=== PATIENT | female | born 1970 | race Caucasian/White ===

== ENCOUNTER → 2017-10-08 08:14 | Outpatient (CLI) | payer OTHER, SELFPAY ==
--- NOTE | 2017-10-08 08:16 | HPBI_ITS ---
MAMMOGRAPHY - BILATERAL SCREENING REASON FOR EXAM: Female, 47 years old. Routine annual screening examination. PERTINENT HISTORY: Non-contributory. TECHNIQUE: Digital bilateral breast nataly (3D mammographic acquisition) in the CC and MLO projections. 2-D mediolateral oblique (MLO) and craniocaudad (CC) views of both breasts were obtained. CAD: Full Field Digital Mammography with Computer Added Detection was performed. COMPARISON: Comparison is made with prior study dated October 07, 2016 and October 04, 2015. FINDINGS: Breast Composition: The breasts are heterogeneously dense, which may obscure small masses. There now is evidence of a 1 cm x 1 cm well-defined nodule in the medial retroareolar region of the right breast. Correlation with ultrasound is recommended. No other significant abnormalities are identified. There has been no significant change since the prior study. HPBI/SCREENING MAMM (CAD), BILAT IMPRESSION: 1 cm x 1 cm well-defined nodule in the medial retroareolar region of the right breast as described. Correlation with ultrasound is recommended. ASSESSMENT CATEGORY: BIRADS Category 0: Incomplete. Need additional imaging evaluation. A letter regarding these results will be sent to the patient by the facility within 30 days. Approximately 10% of breast cancers are not detected by mammography. A normal mammogram should not delay biopsy of a clinically suspicious abnormality. [id number] Electronically Signed: Alexander iLnd MD at 10:09 EST Tel [phone], Service support ,
== END ==
PROVIDERS: Family Provider Internal Medicine; PCP Internal Medicine; Visit Provider Internal Medicine
DX: Z12.31 Encounter for screening mammogram for malignant neoplasm of breast (principal)
CPT/HCPCS: 77063; 77067

== ENCOUNTER → 2017-10-13 12:08 | Outpatient (CLI) | payer OTHER, SELFPAY ==
--- NOTE | 2017-10-13 12:10 | US_ITS ---
STUDY: ULTRASOUND BREAST - RIGHT REASON FOR EXAM: Female, 47 years old. Abnormal screening mammogram. TECHNIQUE: Axial and longitudinal images of the RIGHT breast were performed with a high resolution ultrasound transducer. COMPARISON: Comparison is made with prior mammogram dated October 08, 2017. FINDINGS: RIGHT Breast: 2 small cysts are seen in the retroareolar region of the breast. The larger measures 1.2 cm x 0.9 cm x 0.5 cm. This corresponds to the mammographic findings. Incidental note is made of mildly dilated retroareolar ducts. US/Breast Limited Unilateral IMPRESSION: The mammographic abnormality corresponds to a 2 small retroareolar cysts. Routine mammographic follow-up is recommended. ASSESSMENT CATEGORY: BIRADS Category 2: Benign. A letter regarding these results will be sent to the patient by the facility within 30 days. Electronically Signed: Alexander Lind MD at 13:12 EST Tel [phone], Service support ,
== END ==
PROVIDERS: Family Provider Internal Medicine; PCP Internal Medicine; Visit Provider Internal Medicine
DX: N63.0 Unspecified lump in unspecified breast (principal)
CPT/HCPCS: 76642

== ENCOUNTER → 2018-11-05 07:27 | Outpatient (CLI) | payer OTHER, SELFPAY ==
--- NOTE | 2018-11-05 07:36 | BI_ITS ---
MAMMOGRAPHY - BILATERAL SCREENING 3-D NERY SYNTHESIS REASON FOR EXAM: Female, 48 years old. Bilateral Screening 3-D tomosynthesis PERTINENT HISTORY: control pill use for 30 years. History of right cyst. History of right ducts removed in the [id number] time period. TECHNIQUE: 2-D mammograms and 3-D Nery synthesis of the breast (s) were performed. CAD was performed. COMPARISON: October 08, 2017, October 07, 2016 FINDINGS: The breast composition is heterogeneously dense that can obscure small breast masses. Scattered benign calcifications are seen. No dense spiculated masses or suspicious microcalcifications are identified. No architectural distortion is identified. There is no skin thickening or retraction. There has been no significant change since the prior study. BI/SCREENING MAMM (CAD), BILAT IMPRESSION: No mammographic signs of malignancy. Routine yearly mammograms recommended. ASSESSMENT CATEGORY: BIRADS Category 2: Benign. A letter regarding these results will be sent to the patient by the facility within 30 days. FOLLOW UP RECOMMENDATION: Yearly follow up mammogram recommended. (A) Approximately 10% of breast cancers are not detected by mammography. A normal mammogram should not delay biopsy of a clinically suspicious abnormality. Electronically Signed: Talib Willett MD at 17:45 EDT , Service support ,
== END ==
PROVIDERS: Family Provider Internal Medicine; PCP Internal Medicine; Referring Provider Internal Medicine; Visit Provider Internal Medicine
DX: Z12.31 Encounter for screening mammogram for malignant neoplasm of breast (principal)
CPT/HCPCS: 77063; 77067

== ENCOUNTER → 2020-02-02 07:43 | Outpatient (CLI) | payer OTHER, SELFPAY ==
--- NOTE | 2020-02-02 07:53 | BI_ITS ---
MAMMOGRAPHY - BILATERAL SCREENING REASON FOR EXAM: Female, 49 years old. Routine annual screening examination. PERTINENT HISTORY: Non-contributory. TECHNIQUE: Digital bilateral breast nery (3D mammographic acquisition) in the CC and MLO projections. 2-D mediolateral oblique (MLO) and craniocaudad (CC) views of both breasts were obtained. CAD: Full Field Digital Mammography with Computer Added Detection was performed. COMPARISON: Comparison is made with prior examination dated November 05, 2018 and October 08, 2017. FINDINGS: Breast Composition: The breasts are heterogeneously dense, which may obscure small masses. There are no dominant masses or suspicious calcifications. No other significant abnormalities are identified. There has been no significant change since the prior study. BI/SCREEN MAMM (CAD) W/NERY BILAT IMPRESSION: Stable bilateral screening mammogram. Yearly follow-up mammogram recommended. (A) ASSESSMENT CATEGORY: BIRADS Category 1: Negative. A letter regarding these results will be sent to the patient by the facility within 30 days. Approximately 10% of breast cancers are not detected by mammography. A normal mammogram should not delay biopsy of a clinically suspicious abnormality. [id number] Electronically Signed: Alexander Lind, at 8:58 EDT , Service support ,
== END ==
PROVIDERS: PCP Internal Medicine; Referring Provider Internal Medicine; Visit Provider Internal Medicine
DX: Z12.31 Encounter for screening mammogram for malignant neoplasm of breast (principal)
CPT/HCPCS: 77063; 77067

== ENCOUNTER → 2021-02-26 07:13 | Outpatient (CLI) | payer OTHER, SELFPAY ==
--- NOTE | 2021-02-26 07:15 | BI_ITS ---
MAMMOGRAPHY - BILATERAL SCREENING REASON FOR EXAM: Female, 51 years old. Routine annual screening examination. PERTINENT HISTORY: Non-contributory. TECHNIQUE: Digital bilateral breast nery (3D mammographic acquisition) in the CC and MLO projections. 2-D mediolateral oblique (MLO) and craniocaudad (CC) views of both breasts were obtained. CAD: Full Field Digital Mammography with Computer Added Detection was performed. COMPARISON: Comparison is made with prior study dated 02/02/2020 and 11/05/2018. FINDINGS: Breast Composition: The breasts are heterogeneously dense, which may obscure small masses. There are no dominant masses or suspicious calcifications. Stable benign-appearing bilateral axillary lymph nodes. No other significant abnormalities are identified. There has been no significant change since the prior study. BI/SCRN MAMM (CAD)W/NERY BILAT IMPRESSION: Stable bilateral screening mammogram. Yearly follow-up mammogram recommended. (A) ASSESSMENT CATEGORY: BIRADS Category 2: Benign. A letter regarding these results will be sent to the patient by the facility within 30 days. Approximately 10% of breast cancers are not detected by mammography. A normal mammogram should not delay biopsy of a clinically suspicious abnormality. [id number] Electronically Signed: Alexander Lind MD at 8:41 EDT , Service support ,
== END ==
PROVIDERS: PCP Internal Medicine; Referring Provider Internal Medicine; Visit Provider Internal Medicine
DX: Z12.31 Encounter for screening mammogram for malignant neoplasm of breast (principal)
CPT/HCPCS: 77063; 77067

== ENCOUNTER 2021-06-13 08:00 | Outpatient (RCR) | payer OTHER, SELFPAY ==
--- NOTE | 2021-05-30 08:45 | HP.PTEVAL_ITS ---
Patient's Visit Information SHAYY JACKMAN is a 51 year old F referred to Physical Therapy by Dr. Bianca Licea MD with a diagnosis of B knee pain. Date of Evaluation: 05/30/21 Physical Therapist: Rahat Menendez PT, ATC - Visit Plan Frequency: 2-3x /Week Duration: 4-6 Weeks Plan: B LE stretching and strengthening, core stab, balance and proprio, bike, and HEP - Subjective Pt reports she has had B knee pain for several months. Pt notes she first started working out when she began to experience L knee pain. Pt notes a couple of months later her R knee began to hurt. Pt reports she has had 2 x-rays, which revealed a little bit of OA, but nothing significant. Pt reports no significant injury or trauma to her knees. Pt reports sleep difficulty secondary to B knee pain. Pt denies tingling or numbness in her knees. pt reports she is very active as she has a arreola house and enjoys yard work, and is limited at times secondary to pain. Pt notes her knees don't lock up or give out, but she notes they do pop and crack at times. Pt reports if she rests for a long period of time, she has no pain. But the moment she walks for a while, such as going to the grocery store, she begins to experience pain. pt notes when she kneels, she feels like she is kneeling on a balloon. Pt reports all of her pain is located ont he medial and peripatellar regions of B knees. 0/10 pain at rest, 6/10 pain at worst. - Pain B knee pain Pain Intensity (Out of 10): 0 Pain Intensity Range: 6 - Objective Neuro: B LE sensation is WNL to light touch. B achilles reflex= 2/3. Palpation: Pt is very sore along the medial aspect of B knees. Pt is also very sore on the medial aspect of B patella. No obvious deformity. No crepitus with AROM. ROM: L knee 0-15-97, R knee 0-18-97. MMT: B knee flexion 4/5. R knee ext 4-/5. L knee ext 5/5. Girth at joint line: 43 cm B. Special tests: Positive mcconnels sign indicating patello-femoral syndrome - Balance/Special Test Scores Lower Extremity Functional Score: 47 - Goals Goal 1:: Decrease B knee pain x 50% to aid with sleep Goal Time Frame: 4-6 Weeks Goal 2:: Increase B LE flexibility x 1 grade to aid with decreasing pain Goal Time Frame: 4-6 Weeks Goal 3:: Increase B LE strength x 1 grade to aid with stair negotiation Goal Time Frame: 4-6 Weeks Goal 4:: I with HEP Goal Time Frame: 4-6 Weeks - Rehabilitation Potential Physical Therapy Diagnosis: Pt has B knee pain, limited flexibility, and limited ROM secondary to patello-femoral syndrome Rehabilitation Potential: Good - Anticipated Interventions Patient/Client Instruction: Educate patient on: Condition, Plan of Care For the Purpose of:: To improve self management Therapeutic Exercise to Include: Strength training, Endurance training, Balance training, Flexibilty training, Dynamic Lumbar Stabilization For the Purpose of:: To decrease pain, To increase ROM, To improve muscle performance and motor function Cryotherapy (ice pack, ice massage): Yes For the Purpose of:: To decrease pain Thank you for the opportunity to evaluate your patient. For Medicare and Medicare HMO plans, please review the plan of care and approve it. It will need to be FAXED BACK to us at [phone] for Medicare purposes. For Medicare only, by signing this I certify the plan of care. Please let me know if there are questions or concerns regarding this plan of care. Physician Signature: Date:
--- NOTE | 2021-09-01 15:31 | HP.PT.NRP ---
SHAYY JACKMAN was seen in my office for initial evaluation on 05/30/21. The following Plan of Care was established for this patient: Initial Frequency: 2-3x /Week Initial Duration: 4-6 Weeks Patient/Client Instruction: Educate patient on: Condition, Plan of Care For the Purpose of:: To improve self management Therapeutic Exercise to Include: Strength training, Endurance training, Balance training, Flexibilty training, Dynamic Lumbar Stabilization For the Purpose of:: To decrease pain, To increase ROM, To improve muscle performance and motor function Cryotherapy (ice pack, ice massage): Yes For the Purpose of:: To decrease pain This patient was last seen in our office . Pertinent comments regarding their Physical therapy will appear below: Pt was treated for 4 PT visits for B knee pain through the date of 06/13/21. Pt has not returned through today and is therefore discontinued at this time. At this point I will be discontinuing this patient from physical therapy. I would be happy to see this patient again in the future if found appropriate by the physician. Thank you! Rahat Menendez, PT, ATC Balance/Gait/Functional tests - Balance/Special Test Scores Lower Extremity Functional Score: 56
== END 2021-06-13 19:00 | disposition home or self-care (01) ==
LOC: PT 08:00
PROVIDERS: PCP Internal Medicine; Referring Provider Internal Medicine; Visit Provider Internal Medicine
DX: M25.562 Pain in left knee (principal); M25.561 Pain in right knee
CPT/HCPCS: 97110; 97161

== ENCOUNTER 2021-08-23 07:58 | Outpatient (CLI) | payer OTHER, SELFPAY ==
--- NOTE | 2021-08-23 08:10 | MRI_ITS ---
STUDY: MRI RIGHT KNEE REASON FOR EXAM: Female, 51 years old. RT KNEE PAIN, medial, anterior TECHNIQUE: Standardized fat and water weighted pulse sequences were obtained in all 3 orthogonal planes. COMPARISON: None. FINDINGS: Mild radial tearing is present at the free edge of the body of the medial meniscus. Diffuse thinning and irregularity of the meniscal tissue noted in the central one third aspect of the posterior horn of the medial meniscus, but no focal tear is seen. There is diffuse, greater than 50% thickness articular cartilage loss of the medial femorotibial compartment. Normal medial femoral condyle and tibial plateau. Normal medial collateral ligamentous complex (MCL). Normal distal semimembranosus, gracilis and semitendinosus tendons. Normal lateral meniscus. Normal hyaline cartilage of the lateral femorotibial compartment. Normal lateral femoral condyle and tibial plateau. Normal proximal tibiofibular articulation. Normal lateral collateral (fibular) ligament. Normal popliteus tendon. Normal biceps femoris tendon. Normal anterior cruciate ligament (ACL). Normal posterior cruciate ligament (PCL). Normal congruent patellofemoral articulation. Normal hyaline cartilage of the patellofemoral compartment. Normal medial and lateral patellar retinaculum. Normal quadriceps tendon. Normal patellar tendon. Normal Hoffa''s fat pad. Small joint effusion noted. The soft tissues are unremarkable. The otherwise visualized osseous structures are unremarkable. MRI/Lower Ext Joint Only (Routine) IMPRESSION: 1. Mild radial tearing is present at the free edge of the body of the medial meniscus. Diffuse thinning and irregularity of the meniscal tissue noted in the central one third aspect of the posterior horn of the medial meniscus, but no focal tear is seen. Electronically Signed: Gonzalo Adams MD at 19:57 EST , Service support ,
--- NOTE | 2021-08-23 08:10 | MRI_ITS ---
STUDY: MRI LEFT KNEE REASON FOR EXAM: Female, 51 years old. LEFT KNEE PAIN,medial,anterior TECHNIQUE: Standardized fat and water weighted pulse sequences were obtained in all 3 orthogonal planes. COMPARISON: None. FINDINGS: Normal medial meniscus. Normal hyaline cartilage of the medial femorotibial compartment. Normal medial femoral condyle and tibial plateau. Normal medial collateral ligamentous complex (MCL). Normal distal semimembranosus, gracilis and semitendinosus tendons. 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 There is diffuse, less than 50% thickness articular cartilage loss of the lateral femorotibial compartment. Normal lateral femoral condyle and tibial plateau. Normal proximal tibiofibular articulation. Normal lateral collateral (fibular) ligament. Normal popliteus tendon. Normal biceps femoris tendon. Normal anterior cruciate ligament (ACL). Normal posterior cruciate ligament (PCL). Normal congruent patellofemoral articulation. There is diffuse, greater than 50% thickness articular cartilage loss of the patellofemoral compartment. Normal medial and lateral patellar retinaculum. Normal quadriceps tendon. Normal patellar tendon. Normal Hoffa''s fat pad. Small joint effusion noted. The soft tissues are unremarkable. The otherwise visualized osseous structures are unremarkable. MRI/Lower Ext Joint Only (Routine) IMPRESSION: 1. Mild cartilage thinning in an all 3 compartments. 2. Intrasubstance degeneration of the lateral meniscus without a discrete tear. Electronically Signed: Gonzalo Adams MD at 20:39 EST , Service support ,
== END 2021-08-23 23:59 | disposition short-term general hospital (02) ==
PROVIDERS: PCP Internal Medicine; Visit Provider Internal Medicine
DX: M25.561 Pain in right knee (principal); M25.562 Pain in left knee
CPT/HCPCS: 73721

== ENCOUNTER → 2022-04-23 | Outpatient (CLI) | payer OTHER, SELFPAY ==
--- NOTE | 2022-04-23 08:07 | BI_ITS ---
MAMMOGRAPHY - BILATERAL SCREENING REASON FOR EXAM: Female, 52 years old. Routine annual screening examination. PERTINENT HISTORY: Non-contributory. TECHNIQUE: Digital bilateral breast nery (3D mammographic acquisition) in the CC and MLO projections. 2-D mediolateral oblique (MLO) and craniocaudad (CC) views of both breasts were obtained. CAD: Full Field Digital Mammography with Computer Added Detection was performed. COMPARISON: Comparison is made with prior study dated 02/26/2021 and 02/02/2020. FINDINGS: Breast Composition: The breasts are heterogeneously dense, which may obscure small masses. There are no dominant masses or suspicious calcifications. Stable small benign-appearing bilateral axillary lymph nodes. No other significant abnormalities are identified. There has been no significant change since the prior study. BI/SCRN MAMM (CAD)W/NERY BILAT IMPRESSION: Stable bilateral screening mammogram. Yearly follow-up mammogram recommended. (A) ASSESSMENT CATEGORY: BIRADS Category 2: Benign. A letter regarding these results will be sent to the patient by the facility within 30 days. Approximately 10% of breast cancers are not detected by mammography. A normal mammogram should not delay biopsy of a clinically suspicious abnormality. [id number] Electronically Signed: Alexander Lind MD at 9:18 EDT ,
== END | disposition home or self-care (01) ==
PROVIDERS: PCP Internal Medicine; Referring Provider Internal Medicine; Visit Provider Internal Medicine
DX: Z12.31 Encounter for screening mammogram for malignant neoplasm of breast (principal)
CPT/HCPCS: 77063; 77067

== ENCOUNTER → 2023-06-24 | Outpatient (CLI) | payer OTHER, SELFPAY ==
--- NOTE | 2023-06-24 13:55 | BI_ITS ---
MAMMOGRAPHY - BILATERAL SCREENING REASON FOR EXAM: Female, 53 years old. Routine annual screening examination. PERTINENT HISTORY: Non-contributory. TECHNIQUE: Digital bilateral breast nery (3D mammographic acquisition) in the CC and MLO projections. 2-D mediolateral oblique (MLO) and craniocaudad (CC) views of both breasts were obtained. CAD: Full Field Digital Mammography with Computer Added Detection was performed. COMPARISON: Comparison is made with prior study of April 23, 2022 and February 26, 2021. FINDINGS: Breast Composition: The breasts are heterogeneously dense, which may obscure small masses. There are no dominant masses or suspicious calcifications. There is a 4 mm x 4 mm well-defined nodule in the upper lateral aspect of the right breast. Correlation with ultrasound is recommended. Stable small benign-appearing bilateral axillary nodes. No other significant abnormalities are identified. There has been no significant change since the prior study. BI/SCRN MAMM (CAD)W/NERY BILAT IMPRESSION: 4 mm x 4 mm well-defined nodule in the upper lateral aspect of the right breast. Correlation with ultrasound is recommended. ASSESSMENT CATEGORY: BIRADS Category 0: Incomplete. Need additional imaging evaluation. A letter regarding these results will be sent to the patient by the facility within 30 days. Approximately 10% of breast cancers are not detected by mammography. A normal mammogram should not delay biopsy of a clinically suspicious abnormality. [id number] Electronically Signed: Alexander Lind MD at 14:39 EST ,
== END | disposition home or self-care (01) ==
LOC: OPBI 13:54
PROVIDERS: PCP Internal Medicine; Referring Provider Internal Medicine; Visit Provider Internal Medicine
DX: Z12.31 Encounter for screening mammogram for malignant neoplasm of breast (principal)
CPT/HCPCS: 77063; 77067

== ENCOUNTER → 2023-06-28 | Outpatient (CLI) | payer OTHER, SELFPAY ==
--- NOTE | 2023-06-28 10:43 | US_ITS ---
STUDY: ULTRASOUND BREAST - RIGHT REASON FOR EXAM: Female, 53 years old. Abnormal screening mammogram. TECHNIQUE: Axial and longitudinal images of the RIGHT breast were performed with a high resolution ultrasound transducer. # OF IMAGES: 57 COMPARISON: Comparison is made with prior mammogram dated June 24, 2023. FINDINGS: RIGHT Breast: There is a 4 mm x 4 mm x 3 mm cyst at the 11:00 position of the breast at 6 cm from the nipple. This is a 5 mm x 5 mm x 2 mm cyst at the 12:00 position of the breast at 10 cm from the nipple. There is a 4 mm x 4 mm x 1 mm cyst at the 11:00 position of the breast at 4 cm from the nipple. There is also evidence of mildly dilated retroareolar ducts. US/Breast Limited Unilateral IMPRESSION: 3 small cysts are seen in the upper outer quadrant of the right breast as described. Mildly dilated retroareolar ducts. ASSESSMENT CATEGORY: BIRADS Category 2: Benign. A letter regarding these results will be sent to the patient by the facility within 30 days. Electronically Signed: Alexander Lind MD at 9:46 EST ,
== END | disposition home or self-care (01) ==
LOC: OPUS 10:40
PROVIDERS: PCP Internal Medicine; Referring Provider Internal Medicine; Visit Provider Internal Medicine
DX: N60.01 Solitary cyst of right breast (principal)
CPT/HCPCS: 76642

== ENCOUNTER → 2023-12-07 | Outpatient (CLI) | payer OTHER, SELFPAY ==
--- NOTE | 2023-12-07 15:38 | CT_ITS ---
STUDY: CT ABDOMEN AND PELVIS WITH CONTRAST REASON FOR EXAM: Female, 53 years old. paraspinal soft tissue mass RADIATION DOSAGE (If Supplied By Facility): CTDIvol = ( 14.00 ) mGy, DLP = ( 721.53 ) mGycm TECHNIQUE: Transaxial images were obtained from the dome of the diaphragm to the symphysis pubis without oral contrast. IV 100mL Isovue-300 was administered. Sagittal and coronal images were reconstructed. Individualized dose optimization techniques were used for this CT. COMPARISON: None. FINDINGS: The visualized lung bases are unremarkable. The visualized portions of the heart are within normal limits. Normal liver. The gallbladder is contracted. Normal spleen. Normal pancreas. Normal bilateral adrenal glands. Normal right kidney. Normal left kidney. Evaluation of the GI tract is limited by absence of oral contrast. Cannot exclude stomach wall thickening. No dilated loops of bowel or evidence for obstruction. Cannot exclude segmental thickening of the moe of the small or large bowel. Cannot exclude enteritis or colitis. Moderate diffuse fecal retention. Appendix not clearly seen. Tortuous abdominal aorta with no significant plaque and no aneurysm.. Normal inferior vena cava. Normal retroperitoneum. Normal urinary bladder. 1.7 cm calcified anterior uterine fibroid otherwise normal visualized uterus. Normal abdominal wall. There are diffuse degenerative changes of the visualized lumbar spine. Mild dextroconvex scoliosis. CT/Abdomen/Pelvis WITH Contrast IMPRESSION: No definite acute or significant abnormality seen. No evidence for mass. Electronically Signed: Buster Rosenbaum MD at 17:04 EDT ,
== END | disposition home or self-care (01) ==
PROVIDERS: PCP Internal Medicine; Referring Provider Internal Medicine; Visit Provider Internal Medicine
DX: M79.89 Other specified soft tissue disorders (principal)
CPT/HCPCS: 74177; Q9967

== ENCOUNTER → 2023-12-23 | Outpatient (CLI) | payer OTHER, SELFPAY ==
--- NOTE | 2023-12-23 10:04 | ECHOD_ITS ---
Reason For Study: Abnormal EKG Procedure This was a 2D Doppler, Color Flow transthoracic echocardiogram. Exam performed in department. Left Ventricle Normal size and thickness. The left ventricular ejection fraction is 65 %. Normal diastololic function. Right Ventricle Normal right ventricle. Atria The left and right atria are normal. Mitral Valve Trivial mitral valve insufficiency. Tricuspid Valve Trivial tricuspid valve insufficiency. Normal pulmonary artery pressure. Aortic Valve Trisinus/trileaflet aortic valve. Mild (1+) aortic valve insufficiency. Pulmonic Valve The pulmonic valve is not well visualized. Trivial pulmonic valve insufficiency. Great Vessels Mildly dilated aortic root. Pericardium/Pleural No pericardial effusion. MMode/2D Measurements & Calculations LVIDd: 5.0 cm IVSd: 0.68 cm LVOT diam: 2.0 cm LVIDs: 3.2 cm LVPWd: 0.86 cm LVOT area: 3.0 cm2 RVDd: 3.3 cm FS: 35.5 % Ao root diam: 3.6 cm LAV(MOD-bp): 42.9 ml LVAd ap4: 26.0 cm2 LA dimension: 3.3 cm LAV(MOD-bp) Indexed: 25.5 ml/m2 LVLd ap4: 7.5 cm LAV(MOD-sp2): 43.9 ml EDV(MOD-sp4): 75.4 ml LAV(MOD-sp4): 36.9 ml EDV(sp4-el): 76.7 ml LVAs ap4: 15.3 cm2 LVLs ap4: 6.2 cm ESV(MOD-sp4): 33.0 ml ESV(sp4-el): 32.1 ml EF(MOD-sp4): 56.2 % EF(sp4-el): 58.1 % SV(MOD-sp4): 42.4 ml SV(sp4-el): 44.6 ml LA A4 area: 16.6 cm2 RA A4 area: 13.1 cm2 TAPSE: 1.9 cm Time Measurements MV dec time: 0.23 sec Doppler Measurements & Calculations MV E max reg: 70.5 cm/sec Lat Peak E' Reg: 11.1 cm/sec Med Peak E' Reg: 7.6 cm/sec MV A max reg: 80.7 cm/sec E/E' lat: 6.4 E/E' med: 9.2 MV E/A: 0.87 MV V2 max: 82.1 cm/sec MV P1/2t max reg: 80.1 cm/sec Ao V2 max: 131.4 cm/sec MV max P.7 mmHg MV P1/2t: 65.8 msec Ao max P.9 mmHg MV V2 mean: 45.2 cm/sec Ao V2 mean: 92.5 cm/sec MV mean P.00 mmHg MV dec slope: 356.5 cm/sec2 Ao mean P.8 mmHg MV V2 VTI: 20.2 cm MVA(P1/2t): 3.3 cm2 Ao V2 VTI: 32.7 cm AV (velocity ratio): 0.83 MVA(VTI): 4.1 cm2 KISHORE(I,D): 2.5 cm2 KISHORE(V,D): 2.6 cm2 AI max reg: 508.0 cm/sec LV V1 max: 113.1 cm/sec SV(LVOT): 82.4 ml AI max P.4 mmHg LV V1 max P.1 mmHg LV V1 mean P.8 mmHg AI dec slope: 233.7 cm/sec2 LV V1 mean: 79.0 cm/sec AI P1/2t: 636.6 msec LV V1 VTI: 27.3 cm PA V2 max: 79.6 cm/sec TR max reg: 161.8 cm/sec PA V2 mean: 57.0 cm/sec TR max P.5 mmHg ECHO/Echo Complete Interpretation Summary The left ventricular ejection fraction is 65 %. Mild (1+) aortic valve insufficiency. Mildly dilated aortic root. Ordering Physician: Bianca Licea Referring Physician: Bianca Licea Performed By: Linus Echevarria RCS
== END | disposition home or self-care (01) ==
PROVIDERS: PCP Internal Medicine; Referring Provider Internal Medicine; Visit Provider Internal Medicine
DX: R94.31 Abnormal electrocardiogram [ECG] [EKG] (principal)
CPT/HCPCS: 93306

== ENCOUNTER → 2024-07-06 | Outpatient (CLI) | payer OTHER, SELFPAY ==
--- NOTE | 2024-07-06 07:22 | BI_ITS ---
MAMMOGRAPHY - BILATERAL SCREENING REASON FOR EXAM: Female, 54 years old. Routine annual screening examination. PERTINENT HISTORY: Non-contributory. TECHNIQUE: Digital bilateral breast nery (3D mammographic acquisition) in the CC and MLO projections. 2-D mediolateral oblique (MLO) and craniocaudad (CC) views of both breasts were obtained. CAD: Full Field Digital Mammography with Computer Added Detection was performed. COMPARISON: Comparison is made with prior study June 24, 2023 and April 23, 2022. FINDINGS: Breast Composition: The breasts are heterogeneously dense, which may obscure small masses. There are no dominant masses or suspicious calcifications. Stable 6 mm well-defined nodule in the upper lateral aspect of the right breast. Prior sonogram demonstrated this to be a cyst. No other significant abnormalities are identified. There has been no significant change since the prior study. BI/SCRN MAMM (CAD)W/NERY BILAT IMPRESSION: Stable bilateral screening mammogram. Yearly follow-up mammogram recommended. (A) ASSESSMENT CATEGORY: BIRADS Category 2: Benign. A letter regarding these results will be sent to the patient by the facility within 30 days. Approximately 10% of breast cancers are not detected by mammography. A normal mammogram should not delay biopsy of a clinically suspicious abnormality. [id number] Electronically Signed: Alexander Lind MD at 8:44 EST ,
== END | disposition home or self-care (01) ==
PROVIDERS: PCP Internal Medicine; Referring Provider Internal Medicine; Visit Provider Internal Medicine
DX: Z12.31 Encounter for screening mammogram for malignant neoplasm of breast (principal)
CPT/HCPCS: 77063; 77067

== ENCOUNTER → 2025-01-26 | Outpatient (CLI) | payer OTHER, SELFPAY ==
--- NOTE | 2025-01-26 08:33 | CT_ITS ---
PROCEDURE: CTA CHEST W/WO CONTRAST 01/26/2025 REASON FOR EXAM: ANEURYSM OF ASCENDING AORTA TECHNIQUE: CTA CHEST W/WO CONTRAST Multiplanar and multisequence images were obtained. CONTRAST: [id number] VOLUME: 100 mL One or more dose reduction techniques were used (e.g., Automated exposure control, adjustment of the mA and/or kV according to patient size, use of iterative reconstruction technique). RADIATION DOSE SUMMARY: CTDlvol: 5.82 mGy DLP: 218 mGycm COMPARISON: None. FINDINGS: Dilated/aneurysmal aortic root measuring 4.7 cm. No significant coronary artery calcifications. Normal enhancement of the main pulmonary artery and right and left pulmonary arteries. Normal enhancement of the bilateral peripheral pulmonary arteries. There is no demonstrated pulmonary embolism. There is no demonstrated aortic dissection. Normal heart and pericardium. Normal mediastinum. Normal hilar regions. Normal visualized trachea and bronchi. The lungs are well expanded. Normal pulmonary parenchyma. Normal pleura. Mild diffuse spondylosis. Normal visualized upper abdomen. CT/CTA Chest W/WO Contrast IMPRESSION: Dilated/aneurysmal aortic root measuring 4.7 cm. No significant coronary artery calcifications. No CT evidence of pulmonary embolus or aortic dissection. Reading [facility]
--- OUTSIDE RECORDS SUMMARY | 2025-01-26 10:14 | XMS RPT_ITS | CCD ---
Author Organization [facility] Care Team Providers Care Telecom Sales Consultant Name Role Phone Torsten Mitchell Unavailable Master Ascencio Unavailable Layton Farrell III Unavailable ROSE Suazo Unavailable Unavailable MessengerPaultete Unavailable Unavailable Unavailable Unavailable ROSE Suazo Unavailable Unavailable MessengerPaulette Unavailable Unavailable Pushpa Segovia Unavailable Unavailable Unavailable Unavailable Layton Farrell III Unavailable Torsten Mitchell MD Unavailable Master Ascencio MD Unavailable Jami AGUILLON MD , Layton P Unavailable ROSE Suazo LPN Unavailable Unavailable Bora ABRAHAM, Lilia Unavailable Unavailabl e Messenger RN, Paulette Unavailable Unavailable Unavailable Unavailable Usama , Dr. Schneider Unavailable Calderon, Lamont Unavailable Bentley METZGERN, Laureen Unavailable Unavailable Yung ABRAHAM, Smiley Unavailable Unavailable Unavailable Unavailable Torsten Mitchell MD Unavailable Lyudmila ABRAHAM, Kayela Unavailable Unavailable Justine JASMINE, Yanira Unavailable Unavailable Luz Maria Grover Unavailable Torsten Mitchell MD Attending Unavailable Torsten Mitchell MD Consulting Unavailable Fast DO, Sheron A Referring Unavailable Hanna Peña MA Unavailable Unavailable Torsten Mitchell MD Unavailable TORSTEN MITCHELL Referring Unavailable Bonezzi, Torsten Referring Unavailable Bonezzi, Torsten Attending Unavailable Bonezzi, Torsten Primary Care Unavailable Bonezzi, Torsten Attending Unavailable Bonezzi, Torsten Primary Care Unavailable Bonezzi, Torsten Referring Unavailable Bonezzi, Torsten Referring Unavailable Bonezzi, Torsten Attending Unavailable Bonezzi, Torsten Primary Care Unavailable Luis, Maik Attending Unavailable Bonezzi, Torsten Primary Care Unavailable Allergies Allergy Classification Reported Allergen(s) Allergy Type Date of Onset Reaction(s) Facility Pollen (3 sources) Pollen; Translations: [Pollens] Substance Allergy [facility]; [facility] Work Phone: Comment on above: seasonal - starts in October (20 sources) Pollen; Translations: [Pollens] allergy to substance [facility] Work Phone: Comment on above: seasonal - starts in October (1 source) ALLERGIES NOT ON FILE; Translations: [ALLERGIES NOT ON FILE] Propensity to adverse reactions (disorder) [facility] 2 Repository Medications Current Medications Medication Drug Class(es) Dates Sig (Normalized) Sig (Original) cholecalciferol 0.125 mg oral capsule (20 sources) Vitamin D Start: 10-20-2017 take 5000 [IU] by mouth once Cholecalciferol (Vitamin D3) Active 5000 UNIT PO ONCE October 20, 2017 1:00am take 1 capsule by mouth once juan pablo ly VITAMIN D3, 1000UNIT (Oral Capsule) 1 qd (1000 UNIT) Active Wegovy 0.25 mg/0.5 mL subcutaneous pen injector (3 sources) Start: 03-11-2023 End: 04-22-2023 Wegovy 0.25 mg/0.5 mL subcutaneous pen injector 0.25 Gram every week;administer weeks 1 through 4 of therapy for 0 days Quantity: 2 {Milliliter} Refills: 0 Ordered: 22-Apr-2023 Yanira Fletcher LPN Start : 11-Mar-2023 End : 22-Apr-2023 Inactive Start: 03-11-2023 Wegovy 0.25 mg /0.5 mL subcutaneous pen injector 0.25 Gram every week;administer weeks 1 through 4 of therapy for 0 days Quantity: 2 {Milliliter} Refills: 0 Ordered: 11-Mar-2023 Torsten Mitchell MD, MD, Torsten M Start : 11-Mar-2023 Active Completed/Discontinued Medications Medication Drug Class(es) Dates Sig (Normalized) Sig (Original) azithromycin 250 mg oral tablet (20 sources) Macrolide Antimicrobial Start: 07-28-2019 End: 03-08-2020 Zithromax Z-Modesto 250 MG Oral Tablet 1 (one) Tablet uad for 0 days Quantity: 1 {Package} Refills: 0 Ordered: 08-Mar-2020 ROSE Suazo LPN Start : 28-Jul-2019 End : 08-Mar-2020 Inactive benzonatate 200 mg oral capsule (20 sources) Non-narcotic Antitussive Start: 07-28-2019 End: 03-08-2020 take 1 capsule by mouth twice daily as needed for cough Benzonatate 200 MG Oral Capsule 1 (one) Capsule bid prn cough for 0 days Quantity: 20 {Capsule} Refills: 0 Ordered: 08-Mar-2020 ROSE Suazo LPN Start : 28-Jul-2019 End : 08-Mar-2020 Inactive bifidobacterium animalis [id number] unt / lactobacillus acidophilus [id number] unt oral capsule (20 sources) take 1 capsule by mouth once daily PROBIOTIC (Oral Capsule) 1 qd Inactive take 1 capsule by mouth once juan pablo ly PROBIOTIC (Oral Capsule) 1 qd Inactive Black Cohosh Extract (20 sources) Black Cohosh 1 q d Active Black Cohosh (4 sources) Black Cohosh 1 q d Inactive Black Cohosh 1 q d Active Loestrin Fe 1.5/30 1.5-30 MG-MCG Oral Tablet (20 sources) Estrogen Start: 09-22-2016 End: 05-07-2017 take 1 tablet by mouth once daily, then take 1.5-30 tablets by mouth Loestrin Fe 1.5/30 1.5-30 MG-MCG Oral Tablet 1 Tablet qd for 90 days Quantity: 4 {Package} Refills: 4 Ordered: 07-May-2017 Paulette Barakat RN Start : 22-Sep-2016 End : 07-May-2017 Inactive Comments: dispense 4 packs - patient skips her placebo weeks Start: 09-22-2016 End: 05-07-2017 take 1 tablet by mouth once daily, then take 1.5-30 tablets by mouth Loestrin Fe 1.5/30 1.5-30 MG-MCG Oral Tablet 1 Tablet qd for 90 days Quantity: 4 {Package} Refills: 4 Ordered: 07-May-2017 Paulette Barakat KENROY Start : 22-Sep-2016 End : 07-May-2017 Inactive Comments: dispense 4 packs - patient skips her placebo weeks Comment on above: dispense 4 packs - p atient skips her placebo weeks Loestrin 1/20 (21) 1-20 MG-MCG Oral Tablet (20 sources) Estrogen Start: 09-05-2020 End: 03-25-2021 take 1 tablet by mouth once daily Loestrin 1/20 (21) 1-20 MG-MCG Oral Tablet 1 (one) Tablet qd for 0 days Quantity: 105 {Tablet} Refills: 3 Ordered: 25-Mar-2021 Bentley JASMINELaureen Start : 05-Sep-2020 End : 25-Mar-2021 Inactive Comments: Mail order. patient needs more than 3 packs to get her through 12 weeks of therapy bc takes daily with no break Start: 09-05-2020 take 1 tablet by adelso th once daily Loestrin 1/20 (21) 1-20 MG-MCG Oral Tablet 1 (one) Tablet qd for 0 days Quantity: 105 {Tablet} Refills: 3 Ordered: 05-Sep-2020 Vinayak LOZANO, Torsten Sutherland MD Start : 05-Sep-2020 Active Comments: Mail order. patient needs more than 3 packs to get her through 12 weeks of therapy bc takes daily with no break Start: 08-17-2019 take 1 tablet by adelso th once daily Loestrin 1/20 (21) 1-20 MG-MCG Oral Tablet 1 (one) Tablet qd for 0 days Quantity: 5 {Package} Refills: 3 Ordered: 17-Aug-2019 Vinayak LOZANO, Torsten Sutherland MD Start : 17-Aug-2019 Active Comments: Mail order. patient needs more than 3 packs to get her through 12 weeks of therapy bc takes daily with no break Start: 02-24-2019 take 1 tablet by adelso th once daily Loestrin 1/20 (21) 1-20 MG-MCG Oral Tablet uad Tablet qd for 0 days Quantity: 3 {Package} Refills: 3 Ordered: 24-Feb-2019 Vinayak LOZANO, Torsten Sutherland MD Start : 24-Feb-2019 Active Comments: Mail order. Start: 10-17-2018 take 1 tablet by adelso th once daily Loestrin 1/20 (21) 1-20 MG-MCG Oral Tablet uad Tablet qd for 0 days Quantity: 3 {Package} Refills: 1 Ordered: 17-Oct-2018 Torsten Mitchell MD, MD, Dana M Start : 17-Oct-2018 Active Comments: Mail order. Start: 10-17-2018 take 1 tablet by adelso th once daily Loestrin 1/20 (21) 1-20 MG-MCG Oral Tablet uad Tablet qd for 0 days Quantity: 3 {Package} Refills: 1 Ordered: 17-Oct-2018 Vinayak LOZANO, Torsten Sutherland MD Start : 17-Oct-2018 Active Start: 05-02-2018 Loestrin 1/20 (21) 1-20 MG-MCG Oral Tablet 1 (one) Tablet uad for 0 days Quantity: 3 {Tablet} Refills: 1 Ordered: 02-May-2018 Torsten Mitchell MD, MD, Dana M Start : 02-May-2018 Active Comment on above: Mail order. Mail order. patient needs more than 3 packs to get her through 12 weeks of therapy bc takes daily with no break loratadine 10 mg disintegrating oral tablet (20 sources) take 1 tablet by mouth once daily as needed Loratadine Allergy Relief 10 MG Oral Tablet Disintegrating 1 prn/qd (10 MG) Active methylPREDNISolone 4 mg oral tablet (10 sources) Corticosteroid Start: 2020 End: 2020 take 8 tablets by mouth once Medrol 4 MG Oral Tablet Therapy Pack use as directed per instructions in pack for 0 days Quantity: 1 {Package} Refills: 0 Ordered: 23-May-2021 Smiley Barragan CMA Start : 25-Mar-2021 End : 23-May-2021 Inactive naproxen sodium 220 mg oral capsule (20 sources) Nonsteroidal Anti-inflammatory Drug take 1 capsule by mouth twice daily Aleve 220 MG Oral Capsule 1 bid (220 MG) Active 24 hr oxybutynin chloride 10 mg extended release oral tablet (3 sources) Cholinergic Muscarinic Antagonist Start: 2022 take 1 tablet by mouth once daily oxybutynin chloride 10 mg oral Tablet, Extended Release 24 hr 1 Tablet daily for 0 days Quantity: 30 {Tablet} Refills: 3 Ordered: 11-Mar-2023 Yanira Fletcher LPN Start : 11-Mar-2023 Active predniSONE 20 mg oral tablet (20 sources) Start: 2018 End: 2019 predniSONE 20 MG Oral Tablet 1 (one) Tablet daily for 5 days for 0 days Quantity: 5 {Tablet} Refills: 0 Ordered: 08-Mar-2020 ROSE Suazo LPN Start : 28-Jul-2019 End : 08-Mar-2020 Inactive Start: 05-07-2017 End: 07-20-2017 PredniSONE 20 MG Oral Tablet 1 (one) Tablet bid with food for 2days then qd for 4days for 0 days Quantity: 8 {Tablet} Refills: 0 Ordered: 20-Jul-2017 ROSE Suazo LPN Start : 07-May-2017 End : 20-Jul-2017 Inactive PROBIOTIC (Oral Capsule) (5 sources) take 1 capsule by mouth once daily PROBIOTIC (Oral Capsule) 1 qd Inactive traMADol hydrochloride 50 mg oral tablet (20 sources) Opioid Agonist Start: 07-20-2017 End: 10-05-2017 take 1-2 tablets by mouth every six hours as needed TraMADol HCl 50 MG Oral Tablet 1-2 Tablet Tablet every 6 hours prn for 0 days Quantity: 10 {Tablet} Refills: 0 Ordered: 05-Oct-2017 ROSE Suazo LPN Start : 20-Jul-2017 End : 05-Oct-2017 Inactive Comments: ten Comment on above: ten Problems Active Problems Problem Classification Problem Date Documented Da te Episodic/Chronic Administrative/social admission (20 sources) Medical examinations/reports status; Translations: [Counseling procedure with explicit context] Resolved: 9 09-18-2016 Episodic Comment on above: EKG normal sinus rhy thm.Rate 65, no acute ST-T wave changes.No hypertrophy 10-22-17 GEORGINA Chaney s exam: mammogram=10-03 (right brst cyst seen Jami), HPV/Dno=1366 (will rpt today),BMI=32.3, MOCA=24/30 (recall), LMP=2-18 Contraceptive and procreative management (20 sources) Contraception ; Translations: [Patient encounter status] Resolved: 2 10-22-2017 Episodic Comment on above: Pap smear on 08/29/19 13 was negative. HPV DNA was negative. Repeat Pap smear in 2018. Patient was given a prescription for OCPs. Patient takes a pack continuously for 3 months and then has a withdrawal bleed. Patient has a withdrawal bleed 4 times in a year need to come off bir th control for cholesterol. Coronary atherosclerosis and other heart disease (20 sources) Coronary atherosclerosis and other heart disease Disorders of lipid metabolism (20 sources) Hyperlipidemia; Translations: [Mild hyperlipidemia] 06-27-2019 Chronic Comment on above: ldl some better need to loose weight. need tocome off OCP Genitourinary symptoms and ill-defined conditions (20 sources) Incontinence; Translations: [Mixed incontinence] 08-01-2021 Chronic Immunizations and screening for infectious disease (20 sources) Encounter for immunization; Translations: [Patient encounter status] Resolved: 1 07-20-2017 Episodic Malaise and fatigue (20 sources) Fatigue; Translations: [Fatigue] Resolved: 7 05-07-2017 Episodic Comment on above: Patient recently rec overing from a pneumonia.Repeat CBC, comprehensive metabolic panel.We will do MAIKEL, C-reactive protein, rheumatoid factor, ESR, TSH, Vitamin B12, folate, vitamin D.Chest x-ray to check for resolution of pneumoniaPatient is complaining of worsening fatigue for the last 2 weeks. 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 Denies being stressed out, sleeps well at night around 6-7 hours. After work is extremely very tired and has to lay down Blood work in August 2011CBC hemoglobin 13.1, hematocrit 38.3, WBC 14.2, platelets 374. complete metabolic panel sodium 137 potassium 4.2, chloride 99, bicarbonate 27, BUN/creatinine 13, creatinine 0.76, glucose 75,Calcium 9.1.TSH 1.64, prolactin 8.3. Nonmalignant breast conditions (20 sources) Discharge from nipple; Translations: [Solitary cyst of right breast] Resolved: 9 05-07-2017 Episodic Comment on above: Breast discharge sta tus post right breast discectomy in [address].Patient [address] 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 Patten.Left a message to speak to Dr. Valencia today.Repeat mammogram.Patient is complaining of a purulent breast discharge is 1998. Patient had her first childbirth in 1998 and another son after that. Patient has had purulent discharge from the right breast since her first child . Discharge is yellowish and but not foul-smelling. Patient did not breast-feed. Patient had an episode of mastitis while . In 2001 patient had a right breast ductectomy but her problem was not resolved. Most recent discharge was 9 months ago. Denies having any lumps in the breast.. Mammograms have been WNL. Most recent one 09/23/2014. surgical consult [facility] Dr. Farrell 10-20-17 and he said not need biopsy and re cehck one year Nutritional deficiencies (20 sources) Vitamin D deficiency; Translations: [Vitamin D deficiency] 10-22-2017 Chronic Other connective tissue disease (20 sources) Pain in right lower leg; Translations: [Pain of right lower leg] 06-27-2019 Episodic Comment on above: mcfarland splints will do ice nsaids and rest then stretches then in 2 weeks exercise if not better in 2 weeks call Other gastrointestinal disorders (2 sources) Dysphagia; Translations: [Dysphagia, unspecified] 10-20-2017 Episodic Other lower respiratory disease (20 sources) Chronic cough; Translations: [Chronic cough] Resolved: 0 10-22-2017 Episodic Comment on above: on allergy treatment better on allergy treatment better now more acute prednisoen atb. Other nervous system disorders (12 sources) Lesion of ulnar nerve, right upper limb; Translations: [Cubital tunnel syndrome on right] 06-12-2022 Chronic Comment on above: sound like this she willdo a brace and straight at night Other non-traumatic joint disorders (20 sources) Hip pain; Translations: [Left hip pain] Resolved: 9 10-22-2017 Episodic Comment on above: ded well with inject ion and doign stretches. 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 must rest Other non-traumatic joint disorders (20 sources) Pain in right knee; Translations: [Bilateral knee pain] 08-01-2021 Episodic Comment on above: think tendon/ligaman et strain with doing so much. willhold off on squats and lunges in her owrk out. tylenol to limit stairs rest and ice and elevated. will give oral steroids to kick in the antiinflam she will go to advil after that watching her stomach. if not better than consier injection and PTxray reviewed with patient Other non-traumatic joint disorders (20 sources) Joint pain; Translations: [Pain in unspecified joint (Renamed from Arthralgia)] Resolved: 2 08-01-2021 Episodic Other non-traumatic joint disorders (9 sources) Pain in left shoulder; Translations: [Left shoulder pain] Resolved: 9 01-20-2019 Episodic Comment on above: has done tylenol and ibu and rest so willinject see in one week told what to do stretching then will go to strengthening. must rest Other nutritional; endocrine; and metabolic disorders (20 sources) Body mass index 30+ - obesity; Translations: [BMI 35.0-35.9,adult] Resolved: 1 10-22-2017 Chronic Other nutritional; endocrine; and metabolic disorders (20 sources) Obesity, unspecified; Translations: [Obesity] 10-22-2017 Chronic Comment on above: she is slowly loweri ng ther weight and lifestyle change. doign well. some decrease with leg pain Other screening for suspected conditions (not mental disorders or infectious disease) (20 sources) Elevated C-reactive protein (CRP); Translations: [Breast neoplasm screening status] Onset: 4 Resolved: 2 05-07-2017 Episodic Comment on above: Patient was given a requisition for mammogramMost recent mammogram was on 10/03/2014. No evidence of malignancy. 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 tried the derm wipes will try oxybutynin orally reviewed with patient side effects had all life and aff ect everything. tried the derm wipes will try oxybutynin orally reviewed with patient side effects willuse in situation that usually see prn Pneumonia (except that caused by tuberculosis or sexually transmitted disease) (20 sources) Pneumonia; Translations: [Pneumonia] Resolved: 7 05-07-2017 Episodic Comment on above: Pneumonia now resolv ed with Z-Modesto 5 days, amoxicillin 7 days, prednisone 5 days.Spirometry WNL.Patient continues to have the cough most likely residual cough from the pneumonia.Repeat chest x-ray. Patient is 4 weeks out from the pneumonia.Endyitussin DM over the counter.45-year-old female with no significant past medical history presents as a follow-up for pneumonia.Patient's previous PCP was Dr. Oviedo at [facility]. 2 weeks before [place] patient started having really bad sore throat and cough productive of yellowish phlegm. Patient had a temperature 102 and had a visit to the urgent care X3.Chest x-ray revealed right upper lobe and right lower lobe pneumonia. Patient was prescribed Z-Modesto for 5 days, amoxicillin for 7 days and prednisone for 5 days. Patient denies sore throat, or fever, shortness of breath, wheezing or phlegm. Patient is still complaining off cough and feeling extremely very fatigued. Patient feels very tired after she comes back from work. Denies chest pain. Patient was also prescribed an albuterol inhaler by her PCP which did not help her. Residual codes; unclassified (20 sources) Reduced libido; Translations: [Libido, decreased] Resolved: 9 10-22-2017 Episodic Comment on above: Loss of libido likel y secondary to OCPs. Patient was advised on yoga, exercise, relaxation techniques. Patient is advised to use vaginal lubricants. Referred her to [facility] in [place].patient is complaining of decreased libido for the last 1 year. Patient does not have a desire to have sexual intercourse. Has intercourse once a week.Does have an orgasm occasionally. Was not like that before. Is not having any interpersonal relationship issues. She really likes her .Denies recent stressors. Denies dyspareunia. Uses witch lubricants. Patient is on OCPs for the last many years and takes 4 packs a year. Has withdrawal bleed every 3 months. Patient goes for date nights every once in a while and denies any relationship issues because of her loss of libido. 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 LMP 11-22. tell about biote Residual codes; unclassified (2 sources) Other specified postprocedural states; Translations: [History of breast surgery] 10-20-2017 Episodic Spondylosis; intervertebral disc disorders; other back problems (20 sources) Sciatica; Translations: [Low back pain] Resolved: 9 10-22-2017 Episodic Comment on above: seen chiropactor the n PT on and off on right leg. Unclassified (20 sources) Breast cyst, right Unclassified (20 sources) Periodic health assessment, Pap and pelvic; Translations: [Screening status] Resolved: 9 10-22-2017 Comment on above: Pap smear in 08/29/19 13 was within normal limits. HPV DNA was negative. Patient has had regular Pap smears for the last 20 years and they have been normal. She had an abnormal reading on one of her Pap smears before her first child was born and repeat was within normal limits. Repeat Pap smear with HPV DNA in August 2017. Unclassified (20 sources) Libido, decreased Unclassified (20 sources) Physical exam without abnormal findings (Renamed from Encounter for routine adult health examination without abnormal findings) Unclassified (20 sources) Nonsmoker; Translations: [Non-smoker] 10-22-2017 Unclassified (20 sources) Unclassified (20 sources) Need for Tdap vaccination (Renamed from Need for eqyxdfiqyb-nxczaed-ozz tussis (Tdap) vaccine, adult/adolescent) Unclassified (20 sources) Nutritional counseling Unclassified (20 sources) BMI 34.0-34.9,adult Unclassified (20 sources) Low back pain potentially associated with radiculopathy Unclassified (20 sources) BMI 36.0-36.9,adult Unclassified (20 sources) BMI 32.0-32.9,adult Unclassified (20 sources) Well woman exam (Renamed from Encounter for well woman exam) Unclassified (20 sources) Screening for HPV (human papillomavirus) (Renamed from Encounter for screening for human papillomavirus (HPV)) Unclassified (20 sources) BMI 33.0-33.9,adult Unclassified (20 sources) control counseling Unclassified (20 sources) Left shoulder pain Past or Other Problems Problem Classification Problem Date Documented Date Episodic/Chronic Nonmalignant breast conditions (15 sources) Cyst of right breast; Translations: [Breast cyst, right] Resolved: 01-20-2019 01-20-2019 Comment on above: surgical consult [facility] Dr. Farrell 10-20-17 and he said not need biopsy and re cehck one year Other connective tissue disease (1 source) Other specified soft tissue disorders; Translations: [Other specified soft tissue disorders] Onset: 12-13-2023 Episodic Other nutritional; endocrine; and metabolic disorders (15 sources) Obese class I; Translations: [Obesity (BMI 30.0-34.9)] 06-27-2019 Comment on above: she is slowly loweri ng ther weight and lifestyle change. doign well. some decrease with leg pain Other screening for suspected conditions (not mental disorders or infectious disease) (15 sources) Elevated C-reactive protein; Translations: [CRP elevated] Resolved: 09-18-2016 05-07-2017 Residual codes; unclassified (15 sources) Requires diphtheria, tetanus and pertussis vaccination; Translations: [Need for Tdap vaccination (Renamed from Need for gnoncaunhn-xmfcios-li rtussis (Tdap) vaccine, adult/adolescent)] Resolved: 07-20-2017 07-20-2017 Episodic Unclassified (20 sources) Breast discharge Unclassified (20 sources) Deliveries (Parity); Translations: [Deliveries (Parity)] 10-22-2017 Unclassified (20 sources) Patient encounter status; Translations: [Encounter for screening mammogram for breast cancer (Renamed from Encounter for screening mammogram for malignant neoplasm of breast)] Resolved: 03-08-2020 09-05-2018 Comment on above: Pap smear on 08/29/19 13 was negative. HPV DNA was negative. Repeat Pap smear in 2017. Patient was given a prescription for OCPs. Patient takes a pack continuously for 3 months and then has a withdrawal bleed. Patient has a withdrawal bleed 4 times in a year lipid panel in 2011 revealed triglycerides 166, cholesterol 203, HDL 41, LDL 129.Repeat lipid panel.(pt is not fasting today, will come back when fasting) EKG normal sinus rhy thm.Rate 65, no acute ST-T wave changes.No hypertrophy 10-22-17 GEORGINA Chaney exam: mammogram=2-18 (right brst cyst seen Jami), HPV/Aty=8922 (will rpt today),BMI=32.3, MOCA=24/30 (recall), LMP=2-26-18 mdvip 6-19 Pap smear 3-18 HPV neg and PAP on OCP right now and no contraindication. colonscopy due 51 yo. mammagram 3-19 (in past nodule and Dr steward clear) Tdap 2016 see derm regularly need to come off bir th control for cholesterol. 03-08-20 GEORGINA Harris exam: mammogram=02-01- HPV/Pap=10-22-2017, MOCA 28/30, cognivue 92 Covid IGG negative Unclassified (20 sources) Breast screening Unclassified (20 sources) CRP elevated Unclassified (20 sources) Pregnancies (); Translations: [Pregnancies ()] 10-22-2017 Comment on above: 2. Unclassified (15 sources) Pain in right lower leg Unclassified (13 sources) Screening mammogram, encounter for Unclassified (13 sources) Immunity status testing Unclassified (14 sources) BMI 35.0-35.9,adult Unclassified (11 sources) Family history of cardiovascular disease Unclassified (15 sources) Bilateral knee pain Unclassified (3 sources) Encounter for screening for malignant neoplasm of rectum Unclassified (3 sources) Postmenopause Results Test Name Value Interpretation Reference Range Facility SCRN MAMM (CAD)W/NERY BILATo n 07-06-2024 SCRN MAMM (CAD)W/NERY BILAT [facility] Imaging Services [address] [place] [address] SCRN MAMM (CAD)W/NERY BILAT MR#: [id number] Acct: [id number] Name: SHAYY JACKMAN Rep #: [id number] : 1970 F 54 From: Alexander mendez MD PCP: Dr. Torsten Mitchell MD Status: [facility] Study: SCRN MAMM (CAD)W/NERY BILAT Date of Exam: 06/17 09/08 Exam# [id number] Ordering Dr: Torsten Mitchell MD [id number] MAMMOGRAPHY - BILATERAL SCREENING REASON FOR EXAM: Female, 54 years old. Routine annual screening examination. PERTINENT HISTORY: Non-contributory. TECHNIQUE: Digital bilateral breast nery (3D mammographic acquisition) in the CC and MLO projections. 2-D mediolateral oblique (MLO) and craniocaudad (CC) views of both breasts were obtained. CAD: Full Field Digital Mammography with Computer Added Detection was performed. COMPARISON: Comparison is made with prior study June 24, 2023 and April 23, 2022. FINDINGS: Breast Composition: The breasts are heterogeneously dense, which may obscure small masses. There are no dominant masses or suspicious calcifications. Stable 6 mm well-defined nodule in the upper lateral aspect of the right breast. Prior sonogram demonstrated this to be a cyst. No other significant abnormalities are identified. There has been no significant change since the prior study. BI/SCRN MAMM (CAD)W/NERY BILAT IMPRESSION: Stable bilateral screening mammogram. Yearly follow-up mammogram recommended. (A) ASSESSMENT CATEGORY: BIRADS Category 2: Benign. A letter regarding these results will be sent to the patient by the facility within 30 days. Approximately 10% of breast cancers are not detected by mammography. A normal mammogram should not delay biopsy of a clinically suspicious abnormality. [id number] Electronically Signed: Alexander Lind MD at 8:44 EST Reading Location ID and State: [address] [place] [address] , Service support , CC: Dr. Torsten Mitchell MD Inspection And Testing Supervisor: Signed Normal [facility] Echo Completeon 12-23-2023 Echo [address] [facility] [address] [place] [address] Echo Complete 12/23/23 1054 MR#: [id number] Acct: [id number] Name: SHAYY JACKMAN Rep #: [id number] : 1970 53 From: Maik Smith MD Attending Dr: Dr. Torsten Mitchell MD Status: REG I Ordering Dr: Torsten Mitchell MD Date: 12/23/23 Location: [facility] Sex: F C Admitted: Reason For Study: Abnormal EKG Procedure This was a 2D Doppler, Color Flow transthoracic echocardiogram. Exam performed in department. Left Ventricle Normal size and thickness. The left ventricular ejection fraction is 65 %. Normal diastololic function. Right Ventricle Normal right ventricle. Atria The left and right atria are normal. Mitral Valve Trivial mitral valve insufficiency. Tricuspid Valve Trivial tricuspid valve insufficiency. Normal pulmonary artery pressure. Aortic Valve Trisinus/trileaflet aortic valve. Mild (1+) aortic valve insufficiency. Pulmonic Valve The pulmonic valve is not well visualized. Trivial pulmonic valve insufficiency. Great Vessels Mildly dilated aortic root. Pericardium/Pleural No pericardial effusion. MMode/2D Measurements Calculations LVIDd: 5.0 cm IVSd: 0.68 cm LVOT diam: 2.0 cm LVIDs: 3.2 cm LVPWd: 0.86 cm LVOT area: 3.0 cm2 RVDd: 3.3 cm FS: 35.5 % Ao root diam: 3.6 cm LAV(MOD-bp): 42.9 ml LVAd ap4: 26.0 cm2 LA dimension: 3.3 cm LAV(MOD-bp) Indexed: 25.5 ml/m2 LVLd ap4: 7.5 cm LAV(MOD-sp2): 43.9 ml EDV(MOD-sp4): 75.4 ml LAV(MOD-sp4): 36.9 ml EDV(sp4-el): 76.7 ml LVAs ap4: 15.3 cm2 LVLs ap4: 6.2 cm ESV(MOD-sp4): 33.0 ml ESV(sp4-el): 32.1 ml EF(MOD-sp4): 56.2 % EF(sp4-el): 58.1 % SV(MOD-sp4): 42.4 ml SV(sp4-el): 44.6 ml LA A4 area: 16.6 cm2 RA A4 area: 13.1 cm2 TAPSE: 1.9 cm Time Measurements MV dec time: 0.23 sec Doppler Measurements Calculations MV E max jacob: 70.5 cm/sec Lat Peak E' Jacob: 11.1 cm/sec Med Peak E' Jacob: 7.6 cm/sec MV A max jacob: 80.7 cm/sec E/E' lat: 6.4 E/E' med: 9.2 MV E/A: 0.87 MV V2 max: 82.1 cm/sec MV P1/2t max jacob: 80.1 cm/sec Ao V2 max: 131.4 cm/sec MV max P.7 mmHg MV P1/2t: 65.8 msec Ao max P.9 mmHg MV V2 mean: 45.2 cm/sec Ao V2 mean: 92.5 cm/sec MV mean P.00 mmHg MV dec slope: 356.5 cm/sec2 Ao mean P.8 mmHg MV V2 VTI: 20.2 cm MVA(P1/2t): 3.3 cm2 Ao V2 VTI: 32.7 cm AV (velocity ratio): 0.83 MVA(VTI): 4.1 cm2 KISHORE(I,D): 2.5 cm2 KISHORE(V,D): 2.6 cm2 AI max jacob: 508.0 cm/sec LV V1 max: 113.1 cm/sec SV(LVOT): 82.4 ml AI max P.4 mmHg LV V1 max P.1 mmHg LV V1 mean P.8 mmHg AI dec slope: 233.7 cm/sec2 LV V1 mean: 79.0 cm/sec AI P1/2t: 636.6 msec LV V1 VTI: 27.3 cm PA V2 max: 79.6 cm/sec TR max jacob: 161.8 cm/sec PA V2 mean: 57.0 cm/sec TR max P.5 mmHg ECHO/Echo Complete Interpretation Summary The left ventricular ejection fraction is 65 %. Mild (1+) aortic valve insufficiency. Mildly dilated aortic root. Ordering Physician: Torsten Mitchell Referring Physician: Torsten Mitchell Performed By: Linus Echevarria, [facility] 12/23/23 1228 Date Maik Smtih MD CC: Dr. Torsten Mitchell MD Date Dictated: 12/23/23 1054 Date Transcribed: 12/23/23 1228 Inspection And Testing Supervisor: Signed Normal [facility] CT CARDIAC SCORING WO IV CON TRASTon 12-09-2023 CT CARDIAC SCORING WO IV CONTRAST Interpreted By: Yair Eid, STUDY: CT CARDIAC SCORING WO IV CONTRAST; 12/09/2023 10:01 am INDICATION: Signs/Symptoms:ST SEGMENT CHANGES ON ELECTROCARDIOGRAM. COMPARISON: None. ACCESSION NUMBER(S): [id number] ORDERING CLINICIAN: TORSTEN MITCHELL TECHNIQUE: Using prospective ECG gating, CT scan of the coronary arteries was performed without intravenous contrast. Coronary calcium scoring was performed according to the method of Agatston. FINDINGS: The score and distribution of calcium in the coronary arteries is as follows: LM 0, LAD 11.13, LCx 0, RCA 0, Total 11.13 There is mild aneurysmal dilatation of the ascending thoracic aorta measuring 3.8 cm in diameter. The heart is normal in size. No pericardial effusion is present.Main pulmonary artery is normal in caliber. There is no evidence of lymphadenopathy or mass within the visualized mediastinum. Calcified right pericardial lymph node is noted. The visualized esophagus is unremarkable. The visualized segments of the lungsare normally expanded. The visualized subdiaphragmatic structures demonstrate no remarkable findings. IMPRESSION: 1. Coronary artery calcium score of 11.13 *. 2. Mild aneurysmal dilatation of the ascending thoracic aorta measuring 3.8 cm. *Coronary Artery Calcium Gated and Nongated Agatston score Score Risk 0 Very low 1-99 Mildly increased 100-299 Moderately increased >300 Moderate to severely increased Sonja et al. JCCT 2016 (http://dx.doi.org/10. 1016/j.jcct.2016.11.00 3) HSU 10-Year CHD Risk with Coronary Artery Calcification can be calculated using link below https://www.hsu-nhlbi .org/MESACHDRisk/MesaR iskScore/RiskScore.asp x Keyanna land al. JACC 2015 (http://dx.doi.org/10. 1016/j.j acc.2015.08.035) Signed by: Yair Eid 12/10/2023 4:07 PM Dictation workstation: [id number] [facility] Abdomen/Pelvis WITH Contrast on 12-07-2023 Abdomen/Pelvis WITH Contrast [facility] Imaging Services [address] [place] [id number] Abdomen/Pelvis WITH Contrast MR#: [id number] Acct: [id number] Name: SHAYY JACKMAN Rep #: [id number] : 1970 F 53 From: Buster reyna MD PCP: Dr. Torsten Mitchell MD Status: REG CL Study: Abdomen/Pelvis WITH Contrast Date of Exam: Exam# [id number] Ordering Dr: Torsten Mitchell MD [id number] STUDY: CT ABDOMEN AND PELVIS WITH CONTRAST REASON FOR EXAM: Female, 53 years old. paraspinal soft tissue mass RADIATION DOSAGE (If Supplied By Facility): CTDIvol = ( 14.00 ) mGy, DLP = ( 721.53 ) mGycm TECHNIQUE: Transaxial images were obtained from the dome of the diaphragm to the symphysis pubis without oral contrast. IV 100mL Isovue-300 was administered. Sagittal and coronal images were reconstructed. Individualized dose optimization techniques were used for this CT. COMPARISON: None. FINDINGS: The visualized lung bases are unremarkable. The visualized portions of the heart are within normal limits. Normal liver. The gallbladder is contracted. Normal spleen. Normal pancreas. Normal bilateral adrenal glands. Normal right kidney. Normal left kidney. Evaluation of the GI tract is limited by absence of oral contrast. Cannot exclude stomach wall thickening. No dilated loops of bowel or evidence for obstruction. Cannot exclude segmental thickening of the moe of the small or large bowel. Cannot exclude enteritis or colitis. Moderate diffuse fecal retention. Appendix not clearly seen. Tortuous abdominal aorta with no significant plaque and no aneurysm.. Normal inferior vena cava. Normal retroperitoneum. Normal urinary bladder. 1.7 cm calcified anterior uterine fibroid otherwise normal visualized uterus. Normal abdominal wall. There are diffuse degenerative changes of the visualized lumbar spine. Mild dextroconvex scoliosis. CT/Abdomen/Pelvis WITH Contrast IMPRESSION: No definite acute or significant abnormality seen. No evidence for mass. Electronically Signed: Buster Rosenbaum MD at 17:04 EDT , CC: Dr. Torsten Mitchell MD Inspection And Testing Supervisor: Signed Normal [facility] LIPID PANEL ([id number])Ordered B y: Doorperson Or Luggage Porter on 11-20-2022 Cholesterol [Mass/Vol] 166 mg/dL Normal 100-199 [facility]; [facility] Work Phone: Comment on above: PATIENT WAS FASTINGP ERFORMED BY: CB [facility] Hxzgdo6852 [address] RoadDublin [place] [id number] Cholesterol in HDL [Mass/Vol] 47 mg/dL Normal [facility]; [facility] Work Phone: Comment on above: PATIENT WAS FASTINGP ERFORMED BY: CB [facility] Olzgwi5450 [address] RoadDublin [place] [id number] Triglyceride [Mass/Vol] 112 mg/dL Normal 0-149 [facility]; [facility] Work Phone: Comment on above: PATIENT WAS FASTINGP ERFORMED BY: CB [facility] Asyosq9274 [address] RoadDublin [place] [id number] LIPID PANEL (41540) 20 mg/dL Normal 5-40 Compr ehensive Internal Medicine; [facility] Work Phone: Comment on above: PATIENT WAS FASTINGP ERFORMED BY: CB [facility] Bcfkfn3202 [address] RoadDublin [place] [id number] LIPID PANEL (47915) 99 mg/dL Normal 0-99 Compr ehensive Internal Medicine; [facility] Work Phone: Comment on above: PATIENT WAS FASTINGP ERFORMED BY: CB [facility] Ylatik2800 [address] RoadDublin [place] [id number] LIPID PANEL (50123) 2.1 {ratio} Normal 0.0-3.2 Comp rehensive Internal Medicine; [facility] Work Phone: Comment on above: LDL/HDL Ratio Men Wo men 1/2 Avg.Risk 1.0 1.5 Avg.Risk 3.6 3.2 2X Avg.Risk 6.2 5.0 3X Avg.Risk 8.0 6.1 PATIENT WAS FASTINGP ERFORMED BY: IRINEO Gomes6370 [address] RoadDublin [place] [id number] MICROALBUMINOrdered By: Syst em Fire Hydrant Mechanic on 06-01-2022 Albumin DL <= 20 mg/L (U) [Mass/Vol] mg/dL Normal [facility]; [facility] Work Phone: Comment on above: Verified by repeat analysis PATIENT NOT FASTINGP ERFORMED BY: IRINEO Killianlin6370 [address]Dublin [place] [id number] Albumin/Creatinine (U) [Mass ratio] <17 Normal 0-29 [facility]; [facility] Work Phone: Comment on above: Normal: 0 - 29 Moder ately increased: 30 - 300 Severely increased: >300 PATIENT NOT FASTINGP ERFORMED BY: IRINEO Killianlin6[address]Dublin [place] [id number] Creatinine (U) [Mass/Vol] 17.4 mg/dL Normal [facility]; [facility] Work Phone: Comment on above: PATIENT NOT FASTINGP ERFORMED BY: IRINEO Killianlin6[address] RoadDublin [place] [id number] URINALYSIS ([id number])Ordered By : Doorperson Or Luggage Porter on 06-01-2022 Appearance (U) Clear Normal Comprehens lyubov [facility]; [facility] Work Phone: Comment on above: PATIENT NOT FASTINGP ERFORMED BY: IRINEO Killianlin6[address]Dublin [place] [id number] Bilirubin Ql (U) Negative Normal Comprehe nsive Internal Medicine; [facility] Work Phone: Comment on above: PATIENT NOT FASTINGP ERFORMED BY: IRINEO Killianlin[address]Dublin [place] [id number] Color (U) Yellow Normal [facility]; [facility] Work Phone: Comment on above: PATIENT NOT FASTINGP ERFORMED BY: IRINEO Killianlin[address]Dublin [place] [id number] Glucose Ql (U) Negative Normal Comprehens lyubov [facility]; [facility] Work Phone: Comment on above: PATIENT NOT FASTINGP ERFORMED BY: IRINEO Francescolydia KillianDbmooc1199 [address] RoadDublin [place] [id number] Hemoglobin Ql (U) Negative Normal Compreh ensive Internal Medicine; [facility] Work Phone: Comment on above: PATIENT NOT FASTINGP ERFORMED BY: IRINEO Labcotavo KillianHpojky7791 [address] RoadDublin [place] [id number] Ketones Ql (U) Negative Normal Comprehens lyubov [facility]; [facility] Work Phone: Comment on above: PATIENT NOT FASTINGP ERFORMED BY: IRINEO Francescolydia KillianFdculh3126 [address] RoadDublin [place] [id number] Leukocyte esterase Test strip Ql (U) Negative Normal [facility]; [facility] Work Phone: Comment on above: PATIENT NOT FASTINGP ERFORMED BY: IRINEO Mayaconortavo KillianInazag24[address] RoadDublin [place] [id number] Microscopic observation LM Nom (Urine sed) MICNIP Normal [facility]; [facility] Work Phone: Comment on above: Microscopic not mary cated and not performed. PATIENT NOT FASTINGP ERFORMED BY: IRINEO Lablydia KillianApjnpr9003 [address] RoadDublin [place] [id number] Nitrite Ql (U) Negative Normal Comprehens ly[facility]; [facility] Work Phone: Comment on above: PATIENT NOT FASTINGP ERFORMED BY: IRINEO [facility] Lzaofl3956 [address] RoadDublin [place] [id number] pH (U) 8.0 [pH] Abnormal 5.0-7.5 [facility]; [facility] Work Phone: Comment on above: PATIENT NOT FASTINGP ERFORMED BY: IRINEO [facility] Loahlr1062 [address] RoadDublin [place] [id number] Protein Ql (U) Negative Normal Comprehens lyubov [facility]; [facility] Work Phone: Comment on above: PATIENT NOT FASTINGP ERFORMED BY: [facility] Qhpcdt[address] [facility]in [place] [id number] Specific gravity (U) [Rel density] 1.008 1 Normal 1.005-1.030 [facility]; [facility] Work Phone: Comment on above: PATIENT NOT FASTINGP ERFORMED BY: [facility] Cxnyfm[address] [facility] [id number] Urobilinogen (U) [Mass/Vol] 0.2 mg/dL Normal 0.2-1.0 [facility]; [facility] Work Phone: Comment on above: PATIENT NOT FASTINGP ERFORMED BY: [facility] Zzokqt[address] [facility] [id number] MAIKEL (ANTINUCLEAR ANTIBODY) ( [id number])Ordered By: Doorperson Or Luggage Porter on 08-01-2021 Nuclear Ab Ql (S) Negative Normal Compreh ensive Internal Medicine; [facility] Work Phone: Comment on above: PATIENT NOT FASTINGP ERFORMED BY: [facility] Kjmgso6372 [facility] [id number] BY: LabYesWeAd[address] [id number] C-REACTIVE PROTEIN ([id number])Or dered By: Doorperson Or Luggage Porter on 08-01-2021 CRP [Mass/Vol] 2 mg/L Normal 0-10 Comprehens lyubov [facility]; [facility] Work Phone: Comment on above: PATIENT NOT FASTINGP ERFORMED BY: [facility] Vdbvew0747 [facility] [id number] BY: LabYesWeAd[address] [id number] CBC with auto diff ([id number])Or dered By: Doorperson Or Luggage Porter on 08-01-2021 Basophils (Bld) [#/Vol] 0.0 10*3/uL Normal 0.0-0.2 [facility]; [facility] Work Phone: Comment on above: PATIENT NOT FASTINGP ERFORMED BY: IRINEO [facility] Qgvkev5945 [address] Roadblin [place] [id number] BY: Lab[address] [id number] Basophils/100 WBC (Bld) 0 % Normal [facility]; [facility] Work Phone: Comment on above: PATIENT NOT FASTINGP ERFORMED BY: IRINEO [facility] Fdsjhs6805 [address] RoadDuin [place] [id number] BY: Labco[address] [id number] Eosinophils (Bld) [#/Vol] 0.1 10*3/uL Normal 0.0-0.4 [facility]; [facility] Work Phone: Comment on above: PATIENT NOT FASTINGP ERFORMED BY: IRINEO [facility] Ixbmox6201 [address] RoadDuin [place] [id number] BY: [address] [id number] Eosinophils/100 WBC (Bld) 2 % Normal [facility]; [facility] Work Phone: Comment on above: PATIENT NOT FASTINGP ERFORMED BY: IRINEO [facility] Mtfqpr[address] [facility] [id number] BY: [address] [id number] Erythrocyte distribution width (RBC) [Ratio] 12.7 % Normal 11.7-15.4 [facility]; [facility] Work Phone: Comment on above: PATIENT NOT FASTINGP ERFORMED BY: IRINEO [facility] Iyepvl0428 [address] RoadDuin [place] [id number] BY: Lab[address] [id number] Hematocrit (Bld) [Volume fraction] 41.8 % Normal 34.0-46.6 [facility]; [facility] Work Phone: Comment on above: PATIENT NOT FASTINGP ERFORMED BY: IRINEO [facility] Kdzaag3319 [address] RoadNovant Health [facility] [id number] BY: [address] [id number] Hemoglobin (Bld) [Mass/Vol] 14.0 g/dL Normal 11.1-15.9 [facility]; [facility] Work Phone: Comment on above: PATIENT NOT FASTINGP ERFORMED BY: [facility] [address]lesg[address] [facility]in [place] [id number] BY: [address] [id number] Immature granulocytes (Bld) [#/Vol] 0.0 10*3/uL Normal 0.0-0.1 [facility]; [facility] Work Phone: Comment on above: PATIENT NOT FASTINGP ERFORMED BY: [facility] Ailwys[address] [facility] [id number] BY: [address] [id number] Immature granulocytes/100 WBC (Bld) 0 % Normal [facility]; [facility] Work Phone: Comment on above: PATIENT NOT FASTINGP ERFORMED BY: [facility] Mvqihs[address] [facility] [id number] BY: [address] [id number] Lymphocytes (Bld) [#/Vol] 3.2 10*3/uL Abnormal 0.7-3.1 [facility]; [facility] Work Phone: Comment on above: PATIENT NOT FASTINGP ERFORMED BY: [facility] Ypuwfl[address] [facility] [id number] BY: [address] [id number] Lymphocytes/100 WBC (Bld) 38 % Normal [facility]; [facility] Work Phone: Comment on above: PATIENT NOT FASTINGP ERFORMED BY: [facility] Gbqcwz[address] [facility] [id number] BY: Labco[address] [id number] MCH (RBC) [Entitic mass] 29.1 pg Normal 26.6-33.0 [facility]; [facility] Work Phone: Comment on above: PATIENT NOT FASTINGP ERFORMED BY: IRINEO [facility] Pfavfq1472 [address] [facility] HospitalDuin [place] [id number] BY: [facility] [address] [id number] MCHC (RBC) [Mass/Vol] 33.5 g/dL Normal 31.5-35.7 [facility] prehensive Internal Medicine; [facility] Work Phone: Comment on above: PATIENT NOT FASTINGP ERFORMED BY: IRINEO [facility] Hgwykg[address] [facility] [id number] BY: [address] [id number] MCV (RBC) [Entitic vol] 87 fL Normal 79-97 [facility]; [facility] Work Phone: Comment on above: PATIENT NOT FASTINGP ERFORMED BY: IRINEO [facility] Wbkhmq[address]190 [address] [facility] [id number] BY: [address] [id number] Monocytes (Bld) [#/Vol] 0.7 10*3/uL Normal 0.1-0.9 [facility]; [facility] Work Phone: Comment on above: PATIENT NOT FASTINGP ERFORMED BY: CB [facility] Qgofhv[address] [facility] [id number] BY: [address] [id number] Monocytes/100 WBC (Bld) 8 % Normal [facility]; [facility] Work Phone: Comment on above: PATIENT NOT FASTINGP ERFORMED BY: CB [facility] Inupxz[address] [facility] [id number] BY: BN [facility] [id number] Neutrophils (Bld) [#/Vol] 4.3 10*3/uL Normal 1.4-7.0 [facility]; [facility] Work Phone: Comment on above: PATIENT NOT FASTINGP ERFORMED BY: CB [facility] Cljnbb0585 [address] RoadDublin [place] [id number] BY: [facility] [address] [id number] Neutrophils/100 WBC (Bld) 52 % Normal [facility]; [facility] Work Phone: Comment on above: PATIENT NOT FASTINGP ERFORMED BY: CB [facility] Taxpkf9170 [address] RoadDublin [place] [id number] BY: [facility] [address] [id number] Platelets (Bld) [#/Vol] 470 10*3/uL Abnormal 150-450 [facility]; [facility] Work Phone: Comment on above: PATIENT NOT FASTINGP ERFORMED BY: CB [facility] Aquyco1857 [address] RoadDublin [place] [id number] BY: [facility] [address] [id number] RBC (Bld) [#/Vol] 4.81 10*6/uL Normal 3.77-5.28 Compr ehensive Internal Medicine; [facility] Work Phone: Comment on above: PATIENT NOT FASTINGP ERFORMED BY: CB [facility] Thsgba3540 [address] RoadDublin [place] [id number] BY: [facility] [address] [id number] WBC (Bld) [#/Vol] 8.4 10*3/uL Normal 3.4-10.8 Compre [facility]; [facility] Work Phone: Comment on above: PATIENT NOT FASTINGP ERFORMED BY: CB [facility] Jwbufj5814 [address] RoadDublin [place] [id number] BY: [facility] [address] [id number] CCP ANTIBODY ([id number])Ordered By: Doorperson Or Luggage Porter on 08-01-2021 Cyclic citrullinated peptide IgA+IgG IA Qn 8 {units} Normal 0-19 Comprehens [facility]; [facility] Work Phone: Comment on above: Negative <20 Weak po sitive 20 - 39 Moderate positive 40 - 59 Strong positive >59 PATIENT NOT FASTINGP ERFORMED BY: [employer] Labedjing Tsctxy9038 [facility] [id number] BY: If[employer] [address] [id number] Lyme Disease Antibody W/ Ref marsha (30648)Ordered By: Doorperson Or Luggage Porter on 08-01-2021 B. burgdorferi IgG+IgM Qn (S) {index_val} Normal 0.00-0.90 [facility]; [facility] Work Phone: Comment on above: Negative <0.91 Equiv ocal 0.91 - 1.09 Positive >1.09 PATIENT NOT FASTINGP ERFORMED BY: 3C Plus[address] [facility] [id number] BY: Shopparity[address] [id number] METABOLIC PANEL, COMPREHENSI VE (96899)Ordered By: Doorperson Or Luggage Porter on 08-01-2021 Albumin [Mass/Vol] 4.7 g/dL Normal 3.8-4.8 [facility]; [facility] Work Phone: Comment on above: PATIENT NOT FASTINGP ERFORMED BY: 3C Plus[address] [facility] [id number] BY: Shopparity[address] [id number] Albumin/Globulin [Mass ratio] 1.7 {ratio} Normal 1.2-2.2 [facility]; [facility] Work Phone: Comment on above: PATIENT NOT FASTINGP ERFORMED BY: 3C Plus[address] [facility] [id number] BY: Labco[address] [id number] ALP [Catalytic activity/Vol] 80 U/L Normal 44-121 [facility]; [facility] Work Phone: Comment on above: Please note refere nce interval change PATIENT NOT FASTINGP ERFORMED BY: CB [facility] Eoqxzu9854 Lundy RoadDuin [place] [id number] BY: Labco[address] [id number] ALT [Catalytic activity/Vol] 13 U/L Normal 0-32 [facility]; [facility] Work Phone: Comment on above: PATIENT NOT FASTINGP ERFORMED BY: CB [facility] Ueyfdd6458 Lundy RoadDuin [place] [id number] BY: Labco[address] [id number] AST [Catalytic activity/Vol] 15 U/L Normal 0-40 [facility]; [facility] Work Phone: Comment on above: PATIENT NOT FASTINGP ERFORMED BY: CB [facility] Uprteu7061 Lundy RoadDublin [place] [id number] BY: Labco[address] [id number] Bilirubin [Mass/Vol] 0.4 mg/dL Normal 0.0-1.2 [facility]; [facility] Work Phone: Comment on above: PATIENT NOT FASTINGP ERFORMED BY: CB [facility] Eomeeb9143 Lundy RoadDublin [place] [id number] BY: Lab[address] [id number] Calcium [Mass/Vol] 10.0 mg/dL Normal 8.7-10.2 [facility]; [facility] Work Phone: Comment on above: PATIENT NOT FASTINGP ERFORMED BY: CB [facility] Unkiku6764 Lundy RoadDuin [place] [id number] BY: Labco[address] [id number] Chloride [Moles/Vol] 101 mmol/L Normal 96-[address] [facility] rehensive Internal Medicine; [facility] Work Phone: Comment on above: PATIENT NOT FASTINGP ERFORMED BY: IRINEO LabcoEnglewood Hospital and Medical CenterIcvncy7026 [facility] [id number] BY: Lab[address] [id number] CO2 [Moles/Vol] 23 mmol/L Normal 20-29 [facility]; [facility] Work Phone: Comment on above: PATIENT NOT FASTINGP ERFORMED BY: IRINEO [facility] Qwxozw1681 [facility] [id number] BY: [address] [id number] Creatinine [Mass/Vol] 0.82 mg/dL Normal 0.57-1.00 [facility] prehensive Internal Medicine; [facility] Work Phone: Comment on above: PATIENT NOT FASTINGP ERFORMED BY: IRINEO [facility] Enfyjj7344 [facility] [id number] BY: [address] [id number] GFR/1.73 sq M.predicted among blacks CKD-EPI (S/P/Bld) [Vol rate/Area] 96 mL/min/1.73 Normal [facility]; [facility] Work Phone: Comment on above: In accordance with recommendations from the NKF-ASN Task force, [facility] is in the process of updating its eGFR calculation to the 2020 CKD-EPI creatinine equation that estimates kidney function without a race variable. PATIENT NOT FASTINGP ERFORMED BY: FrancescocoEnglewood Hospital and Medical CenterImezjl8055 [facility] [id number] BY: [address] [id number] GFR/1.73 sq M.predicted among non-blacks CKD-EPI (S/P/Bld) [Vol rate/Area] 84 mL/min/1.73 Normal [facility]; [facility] Work Phone: Comment on above: PATIENT NOT FASTINGP ERFORMED BY: CB [facility] Nchcwz6742 Lundy RoadDublin [place] [id number] BY: Labco[address] [id number] Globulin (S) [Mass/Vol] 2.7 g/dL Normal 1.5-4.5 [facility]; [facility] Work Phone: Comment on above: PATIENT NOT FASTINGP ERFORMED BY: CB [facility] Puhemt6221 Lundy RoadUnc Health Rockinghamin [place] [id number] BY: Labco[address] [id number] Glucose [Mass/Vol] 85 mg/dL Normal 65-99 [facility]; [facility] Work Phone: Comment on above: PATIENT NOT FASTINGP ERFORMED BY: CB [facility] Epqdmz1816 [address] [facility] Hospitalbl[facility] [place] [id number] BY: Lab[address] [id number] Potassium [Moles/Vol] 4.5 mmol/L Normal 3.5-5.2 [facility]; [facility] Work Phone: Comment on above: PATIENT NOT FASTINGP ERFORMED BY: CB [facility] Mmihqu7978 [address] [facility] HospitalDuin [place] [id number] BY: [facility] [address] [id number] Protein [Mass/Vol] 7.4 g/dL Normal 6.0-8.5 [facility]; [facility] Work Phone: Comment on above: PATIENT NOT FASTINGP ERFORMED BY: CB [facility] Uirtsb7119 Lund[address] RoadDuin [place] [id number] BY: Lab[address] [id number] Sodium [Moles/Vol] 139 mmol/L Normal 134-144 [facility]; [facility] Work Phone: Comment on above: PATIENT NOT FASTINGP ERFORMED BY: IRINEO [facility] Velbcf0838 [address] RoadDublin [place] [id number] BY: [address] [id number] Urea nitrogen [Mass/Vol] 14 mg/dL Normal 6-24 [facility]; [facility] Work Phone: Comment on above: PATIENT NOT FASTINGP ERFORMED BY: IRINEO [facility] Vuqwxy65[address] [facility] [id number] BY: Lab[address] [id number] Urea nitrogen/Creatinine [Mass ratio] 17 mg/mg Normal 9-23 [facility]; [facility] Work Phone: Comment on above: PATIENT NOT FASTINGP ERFORMED BY: IRINEO [facility] Kryqoh5439 Lundy RoadUnc Health Rockinghamin [place] [id number] BY: Lab[address] [id number] RHEUMATOID FACTOR-QUANT (240 62)Ordered By: Doorperson Or Luggage Porter on 08-01-2021 Rheumatoid factor Qn [IU]/mL Normal Comp rehensive Internal Medicine; [facility] Work Phone: Comment on above: PATIENT NOT FASTINGP ERFORMED BY: CB [facility] Ocdgtb6054 Lundy RoadDuin [place] [id number] BY: Lab[address] [id number] SED RATE ERYTHROCYTE (80498) Ordered By: Doorperson Or Luggage Porter on 08-01-2021 ESR (Bld) [Velocity] 6 mm/h Normal 0-40 Comp rehensive Internal Medicine; [facility] Work Phone: Comment on above: PATIENT NOT FASTINGP ERFORMED BY: CB [facility] Kiajhx9435 [address] RoadDublin [place] [id number] BY: Dittit[address] [id number] TSH (THYROID STIMULATING HOR AFSHIN) (25084)Ordered By: Doorperson Or Luggage Porter on 08-01-2021 TSH Qn 1.340 {uIU/mL} Normal 0.450-4.500 Comprehen sive Internal Medicine; [facility] Work Phone: Comment on above: PATIENT NOT FASTINGP ERFORMED BY: IRINEO [facility] Nzvwng2333 Lundy RoadDublin [place] [id number] BY: Lab[address] [id number] URINALYSIS W MICROSCOPY (810 00)Ordered By: Doorperson Or Luggage Porter on 08-01-2021 Appearance (U) Clear Normal Comprehens [facility]; [facility] Work Phone: Comment on above: PATIENT NOT FASTINGP ERFORMED BY: IRINEO [facility] Bajxnb9540 [address] RoadDublin [place] [id number] BY: LabYesWeAd[address] [id number] Bilirubin Ql (U) Negative Normal Comprehe nsive Internal Medicine; [facility] Work Phone: Comment on above: PATIENT NOT FASTINGP ERFORMED BY: IRINEO [facility] Xqrfze8522 [address] RoadDublin [place] [id number] BY: LabYesWeAd[address] [id number] Color (U) Yellow Normal [facility]; [facility] Work Phone: Comment on above: PATIENT NOT FASTINGP ERFORMED BY: IRINEO [facility] Hbrekg9172 [address] RoadDublin [place] [id number] BY: Lab[address] [id number] Glucose Ql (U) Negative Normal Comprehens [facility]; [facility] Work Phone: Comment on above: PATIENT NOT FASTINGP ERFORMED BY: IRINEO [facility] Lxomfi5455 [address] RoadDublin [place] [id number] BY: Dittit[address] [id number] Hemoglobin Ql (U) Negative Normal Compreh ensive Internal Medicine; [facility] Work Phone: Comment on above: PATIENT NOT FASTINGP ERFORMED BY: LabcoEnglewood Hospital and Medical CenterXspbdd88[address] [facility] [id number] BY: [address] [id number] Ketones Ql (U) Negative Normal Comprehens [facility]; [facility] Work Phone: Comment on above: PATIENT NOT FASTINGP ERFORMED BY: LabYesWeAdEnglewood Hospital and Medical CenterLglfsp9002 [facility] [id number] BY: [address] [id number] Leukocyte esterase Test strip Ql (U) Negative Normal [facility]; [facility] Work Phone: Comment on above: PATIENT NOT FASTINGP ERFORMED BY: LabYesWeAdMaria [place] 8943270 [facility] [id number] BY: Accumetrics[address] [id number] Microscopic observation LM Nom (Urine sed) MICNIP Normal [facility]; [facility] Work Phone: Comment on above: Microscopic not mary cated and not performed. PATIENT NOT FASTINGP ERFORMED BY: LabYesWeAd Zithim5603 [facility] [id number] BY: [address] [id number] Nitrite Ql (U) Negative Normal Comprehens [facility]; [facility] Work Phone: Comment on above: PATIENT NOT FASTINGP ERFORMED BY: LabYesWeAd Hmutmk2533 [facility] [id number] BY: [address] [id number] pH (U) 6.0 [pH] Normal 5.0-7.5 [facility]; [facility] Work Phone: Comment on above: PATIENT NOT FASTINGP ERFORMED BY: LabYesWeAdEnglewood Hospital and Medical CenterEyxenh4321 [facility] [id number] BY: [address] [id number] Protein Ql (U) Negative Normal Comprehens [facility]; [facility] Work Phone: Comment on above: PATIENT NOT FASTINGP ERFORMED BY: LabcoMaria [place] 8943270 [facility] [id number] BY: [address] [id number] Specific gravity (U) [Rel density] 1.022 1 Normal 1.005-1.030 [facility]; [facility] Work Phone: Comment on above: PATIENT NOT FASTINGP ERFORMED BY: LabKristen V[place] 5813670 [facility] [id number] BY: Accumetrics[address] [id number] Urobilinogen (U) [Mass/Vol] 0.2 mg/dL Normal 0.2-1.0 [facility]; [facility] Work Phone: Comment on above: PATIENT NOT FASTINGP ERFORMED BY: LabKristen Ville 5813670 [facility] [id number] BY: Accumetrics[address] [id number] CBC WITH MANUAL DIFF (84574) Ordered By: Doorperson Or Luggage Porter on 04-25-2021 Basophils (Bld) [#/Vol] 0.0 10*3/uL Normal 0.0-0.2 [facility]; [facility] Work Phone: Comment on above: Test(s) 712387-RME-Z ; 955212-MQI-D; 430929-Hcppycdfsiusc; 763392-Daabybprzmn, Total; 186657-XQY-Y (Total); 971313-Lggtt LDL-P; 975063-PFX Size; 423267-TT-GO Scorewas developed and its performance characteristics determinedby [employer]. It has not been cleared or approved by the Foodand Drug Administration.PATIENT WAS FASTINGPERFORMED BY: [employer] [address] [id number] BY: FamilyID6370 [facility] [id number] Basophils/100 WBC (Bld) 0 % Normal [facility]; [facility] Work Phone: Comment on above: Test(s) 445641-LFG-J ; 285604-TZO-R; 826771-Kkrkdaomslvfl; 916719-Nnefjdgtmdh, Total; 230193-SZX-U (Total); 474567-Soebj LDL-P; 369108-JCU Size; 470869-RJ-IU Scorewas developed and its performance characteristics determinedby [employer]. It has not been cleared or approved by the Foodand Drug Administration.PATIENT WAS FASTINGPERFORMED BY: [employer] [address] [id number] BY: FamilyID6370 [facility] [id number] Eosinophils (Bld) [#/Vol] 0.2 10*3/uL Normal 0.0-0.4 [facility]; [facility] Work Phone: Comment on above: Test(s) 733996-AWZ-B ; 074844-YAS-S; 240309-Wdietggqxohji; 330655-Umfwsrvxrzm, Total; 209843-OHI-C (Total); 872338-Teedf LDL-P; 635437-YTO Size; 965043-PS-KZ Scorewas developed and its performance characteristics determinedby [employer]. It has not been cleared or approved by the Foodand Drug Administration.PATIENT WAS FASTINGPERFORMED BY: [employer] [address] [id number] BY: [employer] Dvdwfx2255 [facility] [id number] Eosinophils/100 WBC (Bld) 2 % Normal [facility]; [facility] Work Phone: Comment on above: Test(s) 216924-JWR-N ; 397241-RHG-L; 553353-Svcuhoskiqkbu; 245402-Jwwwrprprnw, Total; 685933-XAP-V (Total); 131090-Mgjma LDL-P; 887103-MOO Size; 042972-XV-UI Scorewas developed and its performance characteristics determinedby [employer]. It has not been cleared or approved by the Foodand Drug Administration.PATIENT WAS FASTINGPERFORMED BY: [employer] [address] [id number] BY: [employer]70 [facility] [id number] Erythrocyte distribution width (RBC) [Ratio] 12.6 % Normal 11.7-15.4 [facility] Internal Medicine; [facility] Work Phone: Comment on above: Test(s) 125589-GPP-D ; 868069-JKJ-Z; 882997-Quhbkucufgmrs; 413408-Tbicxxsypap, Total; 140616-SCD-W (Total); 334366-Obpcf LDL-P; 267467-JGY Size; 767534-MQ-JS Scorewas developed and its performance characteristics determinedby [employer]. It has not been cleared or approved by the Foodand Drug Administration.PATIENT WAS FASTINGPERFORMED BY: [employer] [address] [id number] BY: FamilyID6370 [facility] [id number] Hematocrit (Bld) [Volume fraction] 42.7 % Normal 34.0-46.6 [facility]; [facility] Internal Medicine Work Phone: Comment on above: Test(s) 365451-PSV-E ; 727310-VOI-S; 122333-Atzikmiydexxr; 013492-Uchzifesrrd, Total; 582062-CEK-S (Total); 087486-Qzhcm LDL-P; 514254-SUO Size; 065376-NQ-OU Scorewas developed and its performance characteristics determinedby [employer]. It has not been cleared or approved by the Foodand Drug Administration.PATIENT WAS FASTINGPERFORMED BY: [employer] [id number] BY: [employer] Qfeodb6429 [facility] [id number] Hemoglobin (Bld) [Mass/Vol] 14.1 g/dL Normal 11.1-15.9 [facility]; [facility] Work Phone: Comment on above: Test(s) 540226-URL-Z ; 565009-TPG-F; 866821-Jiwgneuahgprk; 595694-Npdcphjhjqp, Total; 365433-PXI-D (Total); 190318-Yuxtt LDL-P; 065761-UBO Size; 044516-FS-YN Scorewas developed and its performance characteristics determinedby [employer]. It has not been cleared or approved by the Foodand Drug Administration.PATIENT WAS FASTINGPERFORMED BY: [employer] [address] [id number] BY: [employer] [facility] [id number] Immature granulocytes (Bld) [#/Vol] 0.0 10*3/uL Normal 0.0-0.1 [facility]; [facility] Work Phone: Comment on above: Test(s) 167112-NTJ-I ; 395659-BBD-B; 031637-Gubhgqvqzcpjb; 358819-Ypufrzldqam, Total; 146598-WJH-F (Total); 271891-Ykfux LDL-P; 505613-SAP Size; 624194-EN-XB Scorewas developed and its performance characteristics determinedby [employer]. It has not been cleared or approved by the Foodand Drug Administration.PATIENT WAS FASTINGPERFORMED BY: [employer] [address] [id number] BY: MobStacEnglewood Hospital and Medical CenterHpqadt0731 [facility] [id number] Immature granulocytes/100 WBC (Bld) 0 % Normal [facility]; [facility] Work Phone: Comment on above: Test(s) 170396-EYR-X ; 302903-OTH-R; 224309-Qfleqbavloexs; 200665-Ikgxeaufflb, Total; 814384-FCI-U (Total); 017211-Cohgq LDL-P; 846514-PLG Size; 989961-AW-JW Scorewas developed and its performance characteristics determinedby [employer]. It has not been cleared or approved by the Foodand Drug Administration.PATIENT WAS FASTINGPERFORMED BY: [employer] [address] [id number] BY: [employer] Yvzclh1017 [facility] [id number] Lymphocytes (Bld) [#/Vol] 2.9 10*3/uL Normal 0.7-3.1 [facility]; [facility] Work Phone: Comment on above: Test(s) 207071-YHG-P ; 180657-RMX-Z; 825232-Obkysyfchzqic; 312490-Ldvrqtesjhc, Total; 694887-FHX-Z (Total); 038822-Soaqb LDL-P; 172652-SCT Size; 453347-CU-FH Scorewas developed and its performance characteristics determinedby [employer]. It has not been cleared or approved by the Foodand Drug Administration.PATIENT WAS FASTINGPERFORMED BY: [employer] [address] [id number] BY: [employer] Fsdvso3094 [facility] [id number] Lymphocytes/100 WBC (Bld) 40 % Normal [facility]; [facility] Work Phone: Comment on above: Test(s) 434156-YOO-H ; 506756-EIA-F; 443270-Nbgpirabptzfh; 619054-Yrfcnvyethh, Total; 485713-MZH-H (Total); 755628-Vaslq LDL-P; 841078-SZB Size; 192702-NP-WI Scorewas developed and its performance characteristics determinedby [employer]. It has not been cleared or approved by the Foodand Drug Administration.PATIENT WAS FASTINGPERFORMED BY: [employer] [address] [id number] BY: FamilyID6370 [facility] [id number] MCH (RBC) [Entitic mass] 28.6 pg Normal 26.6-33.0 [facility]; [facility] Work Phone: Comment on above: Test(s) 532340-RMP-W ; 074887-WKG-Y; 203752-Mbgijfjnswnny; 895417-Mltaclctjub, Total; 420187-HRT-K (Total); 425337-Uvwai LDL-P; 348649-OJO Size; 235345-CN-UV Scorewas developed and its performance characteristics determinedby [employer]. It has not been cleared or approved by the Foodand Drug Administration.PATIENT WAS FASTINGPERFORMED BY: Slanissue[address] [id number] BY: FamilyID6[address] [facility] [id number] MCHC (RBC) [Mass/Vol] 33.0 g/dL Normal 31.5-35.7 [facility]; [facility] Work Phone: Comment on above: Test(s) 093883-OVP-I ; 663140-TNE-M; 819663-Etrpialaccftm; 914299-Lpuwdiktpyr, Total; 222806-JMT-R (Total); 907053-Eztcu LDL-P; 280064-XZX Size; 365256-VY-YJ Scorewas developed and its performance characteristics determinedby [employer]. It has not been cleared or approved by the Foodand Drug Administration.PATIENT WAS FASTINGPERFORMED BY: [employer] [address] [id number] BY: [employer] Bxqthw3628 [facility] [id number] MCV (RBC) [Entitic vol] 87 fL Normal 79-97 [facility]; [facility] Work Phone: Comment on above: Test(s) 336172-CYP-E ; 139281-QIV-V; 952872-Ftphbdlxtcrgi; 342389-Jzvnhjcjfrw, Total; 983723-TXV-S (Total); 512062-Pnlak LDL-P; 230965-LWO Size; 656974-LN-ET Scorewas developed and its performance characteristics determinedby [employer]. It has not been cleared or approved by the Foodand Drug Administration.PATIENT WAS FASTINGPERFORMED BY: [employer] [address] [id number] BY: FamilyID6370 [facility] [id number] Monocytes (Bld) [#/Vol] 0.6 10*3/uL Normal 0.1-0.9 [facility]; [facility] Work Phone: Comment on above: Test(s) 549121-DUV-W ; 112604-GVD-Y; 557011-Fsvwzfiiqaqii; 816218-Tdfkpbvyopx, Total; 798457-GCQ-H (Total); 363544-Oqlup LDL-P; 615175-VQT Size; 222940-HQ-FC Scorewas developed and its performance characteristics determinedby [employer]. It has not been cleared or approved by the Foodand Drug Administration.PATIENT WAS FASTINGPERFORMED BY: [employer] [address] [id number] BY: [employer]70 [facility] [id number] Monocytes/100 WBC (Bld) 9 % Normal [facility]; [facility] Work Phone: Comment on above: Test(s) 479639-DIV-Y ; 382997-XTE-F; 129126-Qqoynadkbzbse; 709790-Ruexpdafwog, Total; 640302-MHR-W (Total); 207142-Fosvf LDL-P; 741440-GPQ Size; 365106-FE-SV Scorewas developed and its performance characteristics determinedby [employer]. It has not been cleared or approved by the Foodand Drug Administration.PATIENT WAS FASTINGPERFORMED BY: [employer] [address] [id number] BY: FamilyID6[address] [facility] [id number] Neutrophils (Bld) [#/Vol] 3.5 10*3/uL Normal 1.4-7.0 [facility]; [facility] Work Phone: Comment on above: Test(s) 025577-YTX-U ; 236254-UNI-M; 938309-Vuwcvurwgnrrc; 524246-Dfvtqphxtys, Total; 057437-OZW-R (Total); 330373-Meouj LDL-P; 745312-NVD Size; 066972-YW-VO Scorewas developed and its performance characteristics determinedby [employer]. It has not been cleared or approved by the Foodand Drug Administration.PATIENT WAS FASTINGPERFORMED BY: [employer] [address] [id number] BY: [employer] [facility] [id number] Neutrophils/100 WBC (Bld) 49 % Normal [facility]; [facility] Work Phone: Comment on above: Test(s) 920432-GSP-U ; 087655-MOK-B; 421504-Agigbjqfkqbzz; 808283-Gsttcitfphl, Total; 884610-QNH-G (Total); 320971-Wbrbu LDL-P; 926210-MFZ Size; 405681-QH-TQ Scorewas developed and its performance characteristics determinedby [employer]. It has not been cleared or approved by the Foodand Drug Administration.PATIENT WAS FASTINGPERFORMED BY: [employer] [address] [id number] BY: [employer] Avnznf5829 [facility] [id number] Platelets (Bld) [#/Vol] 345 10*3/uL Normal 150-450 [facility]; [facility] Work Phone: Comment on above: Test(s) 131126-EJL-C ; 134159-YKQ-E; 171050-Auyqreqmnfnaa; 521767-Tqmofocadxg, Total; 953163-SYN-X (Total); 138721-Assyv LDL-P; 806754-DUK Size; 616899-QX-SS Scorewas developed and its performance characteristics determinedby [employer]. It has not been cleared or approved by the Foodand Drug Administration.PATIENT WAS FASTINGPERFORMED BY: [address] [id number] BY: SUPENTA Lyaehz[address] [facility] [id number] RBC (Bld) [#/Vol] 4.93 10*6/uL Normal 3.77-5.28 [facility] Internal Medicine; [facility] Work Phone: Comment on above: Test(s) 979069-QJO-D ; 459425-CXC-A; 254231-Jzyvxruxfdlct; 981553-Rdlzqprknrs, Total; 311254-JMA-J (Total); 517299-Qsqkt LDL-P; 388212-GNT Size; 628898-TN-RZ Scorewas developed and its performance characteristics determinedby [employer]. It has not been cleared or approved by the Foodand Drug Administration.PATIENT WAS FASTINGPERFORMED BY: [address] [id number] BY: FamilyID6[address] [facility] [id number] WBC (Bld) [#/Vol] 7.2 10*3/uL Normal 3.4-10.8 [facility] Internal Medicine; [facility] Work Phone: Comment on above: Test(s) 609333-WYD-L ; 750158-VTK-E; 426538-Gukwactahhuss; 398318-Gidqdebbjmr, Total; 028356-GIC-U (Total); 766800-Tukrs LDL-P; 544301-HBU Size; 598308-BW-PF Scorewas developed and its performance characteristics determinedby [employer]. It has not been cleared or approved by the Foodand Drug Administration.PATIENT WAS FASTINGPERFORMED BY: Sl[address] [id number] BY: [employer] Ngejxm[address] [facility] [id number] Metabolic Panel, Comprehensi ve (90300)Ordered By: Doorperson Or Luggage Porter on 04-25-2021 Albumin [Mass/Vol] 4.6 g/dL Normal 3.8-4.8 [facility] Medicine; [facility] Work Phone: Comment on above: Test(s) 633085-ZUF-J ; 119025-UFF-X; 726937-Pwomuzqtqtfty; 865118-Mbgcgqablwu, Total; 654689-EYG-N (Total); 533246-Hhdjv LDL-P; 816821-ZUE Size; 837859-MB-FG Scorewas developed and its performance characteristics determinedby [employer]. It has not been cleared or approved by the Foodand Drug Administration.PATIENT WAS FASTINGPERFORMED BY: [employer] [place] [address] [id number] BY: [employer] [employer]Formerly [facility] [id number] Albumin/Globulin [Mass ratio] 1.8 {ratio} Normal 1.2-2.2 [facility]; [facility] Work Phone: Comment on above: Test(s) 650443-FQY-O ; 263443-MNK-S; 468968-Czcnnqenjtsqg; 094064-Imrvvhzzewc, Total; 584550-BLR-X (Total); 572269-Civrz LDL-P; 040987-SVJ Size; 815480-HU-OA Scorewas developed and its performance characteristics determinedby [employer]. It has not been cleared or approved by the Foodand Drug Administration.PATIENT WAS FASTINGPERFORMED BY: [employer] [facility] [id number] BY: FamilyID6370 [facility] [id number] ALP [Catalytic activity/Vol] 86 U/L Normal 48-121 [facility]; [facility] Work Phone: Comment on above: Effective Aprembe r 2020 Alkaline Phosphatase reference interval will be changing to: Age Male Female 0 - 5 days 47 - 127 47 - 127 6 - 10 days 29 - 242 29 - 242 11 - 20 days 109 - 357 109 - 357 21 - 30 days 94 - 494 94 - 494 1 - 2 months 149 - 539 149 - 539 3 - 6 months 131 - 452 131 - 452 7 - 11 months 117 - 401 117 - 401 12 months - 6 years 158 - 369 158 - 369 7 - 12 years 150 - 409 150 - 409 13 years 156 - 435 78 - 227 14 years 114 - 375 64 - 161 15 years 88 - 279 56 - 134 16 years 74 - 207 51 - 121 17 years 63 - 161 47 - 113 18 - 20 years 51 - 125 42 - 106 >20 years 44 - 121 44 - 121 Test(s) 381759-KTI-V ; 827130-XNH-P; 701961-Kqotyatokmwah; 356767-Tfychmdjtws, Total; 876145-RCS-O (Total); 670409-Jcdvq LDL-P; 015415-AKE Size; 921647-LA-KQ Scorewas developed and its performance characteristics determinedby [employer]. It has not been cleared or approved by the Foodand Drug Administration.PATIENT WAS FASTINGPERFORMED BY: [address] [id number] BY: [employer] [facility] [id number] ALT [Catalytic activity/Vol] 22 U/L Normal 0-32 [facility]; [facility] Work Phone: Comment on above: Test(s) 664880-IXK-C ; 636839-RHU-B; 540786-Npjgydrklaipl; 378402-Cxpiwsunsxx, Total; 279743-NNB-Z (Total); 194124-Rehqa LDL-P; 859148-RWM Size; 155452-RC-PU Scorewas developed and its performance characteristics determinedby [employer]. It has not been cleared or approved by the Foodand Drug Administration.PATIENT WAS FASTINGPERFORMED BY: Sl[address] [id number] BY: FamilyID6[address] [facility] [id number] AST [Catalytic activity/Vol] 19 U/L Normal 0-40 [facility]; [facility] Work Phone: Comment on above: Test(s) 321716-CBS-J ; 228548-IQE-U; 778341-Kdzaddzbsjgyv; 696387-Ebweqxlmvnb, Total; 493407-NWU-F (Total); 816591-Omuyt LDL-P; 534386-NFW Size; 422411-OR-BD Scorewas developed and its performance characteristics determinedby [employer]. It has not been cleared or approved by the Foodand Drug Administration.PATIENT WAS FASTINGPERFORMED BY: [address] [id number] BY: [employer] [facility] [id number] Bilirubin [Mass/Vol] 0.5 mg/dL Normal 0.0-1.2 [facility] Internal Medicine; [facility] Work Phone: Comment on above: Test(s) 259920-LAI-U ; 632464-NQZ-L; 048445-Qljgehkpknhvx; 210892-Ohuafuwdnzo, Total; 863467-WEZ-P (Total); 550090-Zckim LDL-P; 172505-REU Size; 633825-AV-UG Scorewas developed and its performance characteristics determinedby [employer]. It has not been cleared or approved by the Foodand Drug Administration.PATIENT WAS FASTINGPERFORMED BY: [employer] [address] [id number] BY: [employer] Hhprub74[address] [facility] [id number] Calcium [Mass/Vol] 9.8 mg/dL Normal 8.7-10.2 [facility] Internal Medicine; [facility] Work Phone: Comment on above: Test(s) 263691-PSV-I ; 608443-LYM-H; 134697-Hytosgleadvnh; 097390-Pgkaqegmitf, Total; 538633-HHQ-B (Total); 952985-Bxybn LDL-P; 676657-DGW Size; 136119-KI-TT Scorewas developed and its performance characteristics determinedby [employer]. It has not been cleared or approved by the Foodand Drug Administration.PATIENT WAS FASTINGPERFORMED BY: [employer] [address] [id number] BY: FamilyID6[address] [facility] [id number] Chloride [Moles/Vol] 104 mmol/L Normal 96-[address] [facility]; [facility] Work Phone: Comment on above: Test(s) 459107-FVK-Q ; 094767-YDM-K; 179715-Kbuvlubbkubbl; 764293-Tbedtbgnwpk, Total; 604871-NIH-W (Total); 915741-Qfpro LDL-P; 465817-ONP Size; 375459-FE-ZH Scorewas developed and its performance characteristics determinedby [employer]. It has not been cleared or approved by the Foodand Drug Administration.PATIENT WAS FASTINGPERFORMED BY: Sl[address] [id number] BY: FamilyID6[address] [facility] [id number] CO2 [Moles/Vol] 24 mmol/L Normal 20-29 [facility] Internal Medicine; [facility] Work Phone: Comment on above: Test(s) 635856-AYG-T ; 696724-THW-R; 351757-Fyhwpadekagnc; 223376-Xuwouqctvms, Total; 017781-KRG-E (Total); 280491-Zscse LDL-P; 292937-AXS Size; 643651-PU-QO Scorewas developed and its performance characteristics determinedby [employer]. It has not been cleared or approved by the Foodand Drug Administration.PATIENT WAS FASTINGPERFORMED BY: [address] [id number] BY: [employer] Ckrcei35[address] [facility] [id number] Creatinine [Mass/Vol] 0.81 mg/dL Normal 0.57-1.00 [facility] prehensive Internal Medicine; [facility] Work Phone: Comment on above: Test(s) 957110-KFY-E ; 288451-JRX-O; 668421-Tyhoirhyflrdb; 395052-Rhsrlexcftt, Total; 928283-XUE-E (Total); 817935-Anfyk LDL-P; 331956-PSA Size; 674922-YX-CB Scorewas developed and its performance characteristics determinedby [employer]. It has not been cleared or approved by the Foodand Drug Administration.PATIENT WAS FASTINGPERFORMED BY: [employer] [address] [id number] BY: SUPENTAM[place] [id number] [facility] [id number] GFR/1.73 sq M.predicted among blacks CKD-EPI (S/P/Bld) [Vol rate/Area] 98 mL/min/1.73 Normal [facility]; [facility] Work Phone: Comment on above: [employer] currently reports eGFR in compliance with the current recommendations of the National Kidney Foundation. [employer] will update reporting as new guidelines are published from the NKF-ASN Task force. Test(s) 865396-UFA-P ; 367546-KYZ-W; 735397-Huntudzbqbqli; 304260-Erkjtpaqasq, Total; 987053-FZQ-F (Total); 434936-Aujig LDL-P; 268751-KLX Size; 420897-ZP-SF Scorewas developed and its performance characteristics determinedby [employer]. It has not been cleared or approved by the Foodand Drug Administration.PATIENT WAS FASTINGPERFORMED BY: [employer] [address] [id number] BY: [employer] Ogaudy14[address] [facility] [id number] GFR/1.73 sq M.predicted among non-blacks CKD-EPI (S/P/Bld) [Vol rate/Area] 85 mL/min/1.73 Normal [facility]; [facility] Work Phone: Comment on above: Test(s) 357894-CYC-M ; 297121-JVR-G; 561886-Bprocygivxcci; 698800-Wuenqasazar, Total; 672072-RMO-E (Total); 883118-Toldr LDL-P; 377909-JDY Size; 245634-SM-UT Scorewas developed and its performance characteristics determinedby [employer]. It has not been cleared or approved by the Foodand Drug Administration.PATIENT WAS FASTINGPERFORMED BY: [employer] [address] [id number] BY: SUPENTA Pwatji[address] [employer]mer[employer] NetworksFormerly [facility] [id number] Globulin (S) [Mass/Vol] 2.6 g/dL Normal 1.5-4.5 [facility] Internal Medicine; [facility] Work Phone: Comment on above: Test(s) 063816-IGJ-C ; 442082-OIT-I; 748640-Ghfxpzesbwvsp; 252809-Jiecyqcdcro, Total; 087801-FTO-F (Total); 620481-Fcmum LDL-P; 193742-ONU Size; 162020-IM-BW Scorewas developed and its performance characteristics determinedby [employer]. It has not been cleared or approved by the Foodand Drug Administration.PATIENT WAS FASTINGPERFORMED BY: [employer] [address] [id number] BY: FamilyID6[address] [facility] [id number] Glucose [Mass/Vol] 84 mg/dL Normal 65-99 [facility] Internal Medicine; [facility] Work Phone: Comment on above: Test(s) 168649-XXL-M ; 101445-IGF-O; 646764-Deliqvhaunqou; 618384-Jbwepdrublc, Total; 892014-YYA-W (Total); 709656-Ezmbt LDL-P; 589440-IHY Size; 085317-GF-XQ Scorewas developed and its performance characteristics determinedby [employer]. It has not been cleared or approved by the Foodand Drug Administration.PATIENT WAS FASTINGPERFORMED BY: [employer] [address] [id number] BY: SUPENTAEnglewood Hospital and Medical CenterTopmnn32[address] [facility] [id number] Potassium [Moles/Vol] 4.3 mmol/L Normal 3.5-5.2 [facility] prehensive Internal Medicine; [facility] Work Phone: Comment on above: Test(s) 195485-YAX-O ; 493751-LAJ-B; 742912-Pxzpnhvomyhlo; 908829-Vdhweqtzeeg, Total; 069710-MDC-W (Total); 460109-Wkqun LDL-P; 790555-GOA Size; 965423-OX-RD Scorewas developed and its performance characteristics determinedby [employer]. It has not been cleared or approved by the Foodand Drug Administration.PATIENT WAS FASTINGPERFORMED BY: [employer] [address] [id number] BY: [employer] [facility] [id number] Protein [Mass/Vol] 7.2 g/dL Normal 6.0-8.5 [facility] Internal Medicine; [facility] Work Phone: Comment on above: Test(s) 451539-VXG-V ; 959760-PNF-R; 175091-Hpzgxuxxnrfym; 794268-Riiizaglohp, Total; 991910-JVI-L (Total); 755518-Mutbk LDL-P; 761409-IQO Size; 787836-MS-GI Scorewas developed and its performance characteristics determinedby [employer]. It has not been cleared or approved by the Foodand Drug Administration.PATIENT WAS FASTINGPERFORMED BY: [employer] [address] [id number] BY: FamilyID6370 [facility] [id number] Sodium [Moles/Vol] 142 mmol/L Normal 134-144 [facility] Internal Medicine; [facility] Work Phone: Comment on above: Test(s) 469735-RNK-I ; 731008-LRT-I; 516364-Ysdcfwjdkmtlm; 947120-Hrnmcfidfnx, Total; 288135-ZGJ-C (Total); 283318-Khdcz LDL-P; 832608-IJO Size; 498734-LS-MC Scorewas developed and its performance characteristics determinedby [employer]. It has not been cleared or approved by the Foodand Drug Administration.PATIENT WAS FASTINGPERFORMED BY: [employer] [address] [id number] BY: SUPENTA Uanjcy6[address] [facility] [id number] Urea nitrogen [Mass/Vol] 16 mg/dL Normal 6-24 [facility]; [facility] Work Phone: Comment on above: Test(s) 909624-WIN-I ; 176196-NMK-T; 365469-Hldrzvzgrqpbd; 491511-Xlljjlrmoig, Total; 732496-ITH-W (Total); 422743-Bbcde LDL-P; 967959-OGH Size; 303415-OU-DT Scorewas developed and its performance characteristics determinedby [employer]. It has not been cleared or approved by the Foodand Drug Administration.PATIENT WAS FASTINGPERFORMED BY: [employer] [address] [id number] BY: FamilyID6370 [facility] [id number] Urea nitrogen/Creatinine [Mass ratio] 20 mg/mg Normal 9-23 [facility]; [facility] Work Phone: Comment on above: Test(s) 616381-FJJ-M ; 120271-EYV-L; 711121-Tdtvelfngshzr; 931406-Vflhdlpxsaq, Total; 521865-CFL-J (Total); 956685-Xlswa LDL-P; 381900-PQV Size; 127314-VC-GH Scorewas developed and its performance characteristics determinedby [employer]. It has not been cleared or approved by the Foodand Drug Administration.PATIENT WAS FASTINGPERFORMED BY: [employer] [address] [id number] BY: MobStacEnglewood Hospital and Medical CenterHsviev6[address] [facility] [id number] NMR Profile (06336)Ordered B y: Doorperson Or Luggage Porter on 04-25-2021 Cholesterol [Mass/Vol] 214 mg/dL Abnormal 100-199 [facility]; [facility] Work Phone: Comment on above: Test(s) 647363-WCC-U ; 921726-LND-R; 407755-Vpqljarbpphwx; 434001-Xwkoubgerhy, Total; 759326-WSA-L (Total); 736704-Etgtt LDL-P; 643537-EAT Size; 924482-AZ-CF Scorewas developed and its performance characteristics determinedby [employer]. It has not been cleared or approved by the Foodand Drug Administration.PATIENT WAS FASTINGPERFORMED BY: [employer] [address] [id number] BY: [employer] Hfmgss13[address] [facility] [id number] Information: NURSE DRAW; fu 10-8 Lipoprotein.alpha [Moles/Vol] 31.7 umol/L Normal [facility]; [facility] Work Phone: Comment on above: Test(s) 011840-GIO-P ; 497711-WOA-T; 455460-Syneeydbcrnby; 986747-Jnpmzmxulkl, Total; 688592-ANM-Z (Total); 444260-Ckxmc LDL-P; 688685-VZX Size; 337836-DI-EX Scorewas developed and its performance characteristics determinedby [employer]. It has not been cleared or approved by the Foodand Drug Administration.PATIENT WAS FASTINGPERFORMED BY: [employer] [address] [id number] BY: [employer] Ebrmtz39[address] [facility] [id number] Information: NURSE DRAW; fu 10-8 Lipoprotein.beta.subpa rticle [Entitic length] 21.1 nm Normal [facility]; [facility] Work Phone: Comment on above: INTERPRETATIVE INFORMATION PARTICLE CONCENTRATION AND SIZE <--Lower CVD Risk Higher CVD Risk--> LDL AND HDL PARTICLES Percentile in Reference Population HDL-P (total) High 75th 50th 25th Low >34.9 34.9 30.5 26.7 <26.7 . Small LDL-P Low 25th 50th 75th High <117 117 527 839 >839 . LDL Size <-Large (Pattern A)-> <-Small (Pattern B)-> 23.0 20.6 20.5 19.0 Small LDL-P and LDL Size are associated with CVD risk, but not afterLDL-P is taken into account. Test(s) 757276-NLA-N ; 272065-AUU-M; 559214-Cofkosjalhjfi; 642156-Dcmbmrewtmg, Total; 502482-MCI-D (Total); 223165-Csqgc LDL-P; 786167-AZV Size; 782074-VD-QZ Scorewas developed and its performance characteristics determinedby [employer]. It has not been cleared or approved by the Foodand Drug Administration.PATIENT WAS FASTINGPERFORMED BY: [employer] [address] [id number] BY: [employer] Kvlfqv6[address] [facility] [id number] Information: NURSE DRAW; fu 10-8 Lipoprotein.beta.subpa rticle [Moles/Vol] 1659 nmol/L Abnormal [facility]; [facility] Work Phone: Comment on above: Low < 1000 Moderate 1000 - 1299 Borderline-High 1300 - 1599 High 1600 - 2000 Very High > 2000 Test(s) 136361-VZK-N ; 555266-LLO-X; 414820-Ovorgwagxshiy; 450568-Nxnpqbkdmoz, Total; 210762-FVD-G (Total); 513481-Ruavg LDL-P; 098802-WZD Size; 766037-ZU-OB Scorewas developed and its performance characteristics determinedby [employer]. It has not been cleared or approved by the Foodand Drug Administration.PATIENT WAS FASTINGPERFORMED BY: Slanissue[address] [id number] BY: MobStacCHRISTUS St. Vincent Regional Medical CenterXxevtu47[address] [facility] [id number] Information: NURSE DRAW; fu 10-8 Lipoprotein.beta.subpa rticle.small [Moles/Vol] 534 nmol/L Abnormal [facility]; [facility] Work Phone: Comment on above: Test(s) 350288-XDM-B ; 174520-HVJ-R; 495289-Jfdmchkqucwwg; 922628-Ejbcqcwirpr, Total; 186454-COO-Z (Total); 844867-Khzjt LDL-P; 535578-DAB Size; 742497-DO-YA Scorewas developed and its performance characteristics determinedby [employer]. It has not been cleared or approved by the Foodand Drug Administration.PATIENT WAS FASTINGPERFORMED BY: Sl[address]issue[address] [id number] BY: [employer] Gklhoz9[address] [facility] [id number] Information: NURSE DRAW; fu 10-8 Triglyceride [Mass/Vol] 136 mg/dL Normal 0-149 [facility]; [facility] Work Phone: Comment on above: Test(s) 306274-YLL-A ; 425525-TAM-T; 410556-Mbdmtamfkteuq; 841048-Jhaqtgcanii, Total; 391352-ZLH-I (Total); 355911-Sdjqw LDL-P; 320572-HPN Size; 435672-UL-WU Scorewas developed and its performance characteristics determinedby [employer]. It has not been cleared or approved by the Foodand Drug Administration.PATIENT WAS FASTINGPERFORMED BY: [employer] [address] [id number] BY: MobStacEnglewood Hospital and Medical CenterPrtcmi43[address] [facility] [id number] Information: NURSE DRAW; fu 10-8 NMR Profile (58064) 143 mg/dL Abnormal 0-99 [facility]; [facility] Work Phone: Comment on above: . Optimal < 100 Abov e optimal 100 - 129 Borderline 130 - 159 High 160 - 189 Very high > 189 . Test(s) 953367-YPN-H ; 147079-RWX-E; 320740-Mapqhranntiec; 952065-Eblslvxowuz, Total; 142493-RXP-V (Total); 500374-Kkpyw LDL-P; 510715-BZC Size; 063452-FO-ZO Scorewas developed and its performance characteristics determinedby [employer]. It has not been cleared or approved by the Foodand Drug Administration.PATIENT WAS FASTINGPERFORMED BY: Slanissue[address] [id number] BY: [employer] [facility] [id number] Information: NURSE DRAW; fu 05-23 NMR Profile (00771) 47 mg/dL Normal Compr ehensive Internal Medicine; [facility] Work Phone: Comment on above: Test(s) 426511-CIX-R ; 971991-QGR-U; 249995-Dhetxhoiemjrh; 751204-Hdgxkxypqez, Total; 181206-OZQ-K (Total); 579786-Maaju LDL-P; 226480-XDZ Size; 835823-YB-CA Scorewas developed and its performance characteristics determinedby [employer]. It has not been cleared or approved by the Foodand Drug Administration.PATIENT WAS FASTINGPERFORMED BY: [employer] [address] [id number] BY: SUPENTA Xwgapm91[address] [facility] [id number] Information: NURSE DRAW; fu 05-23 XR KNEE 4V AP/LAT/OBLS BILon 03-19-2021 XR KNEE 4V AP/LAT/OBLS FELY * * *Final Report* * * DATE OF EXAM: Mar 19 2021 7:48AM LDX 5619 - XR KNEE 4V AP/LAT/OBLS FELY / PROCEDURE REASON: bilat knee pain * * * * Physician Interpretation * * * * TECHNIQUE: XR KNEE 4V AP/LAT/OBLS FELY EXAM DATE: 03/19/2021 7:48 AM COMPARISON STUDIES: None CLINICAL HISTORY: bilat knee pain RESULT: Question small left-sided joint effusion. No acute fracture or dislocation. Joint spaces maintained. Tiny left-sided patellar enthesophyte. IMPRESSION: Question small left joint effusion No acute osseous abnormality Inspection And Testing Supervisor: JENNIFER Transcribe Date/Time: Mar 19 2021 6:17P Dictated by : ERNESTO BURGOS MD This examination was interpreted and the report reviewed and electronically signed by: ERNESTO BURGOS MD on Mar 19 2021 6:19PM EST [id number] Normal [facility] SARS-CoV-2 Antibody, IgGOrde red By: Doorperson Or Luggage Porter on 02-23-2020 SARS-CoV-2 Antibody, IgG Negative Normal [facility] Work Phone: Comment on above: This sample does not contain detectable SARS-CoV-2 IgG antibodies.This negative result does not rule out SARS-CoV-2 infection.Correlation with epidemiologic risk factors and other clinical andlaboratory findings is recommended. Serologic results should not beused as the sole basis to diagnose or exclude recent REYZ-ZhK-6zalkiqjue.This assay was performed using the Jean SARS-CoV-2 IgG assay. Test(s) 897386-HJZB- CoV-2 Antibody, IgGhas not been FDA cleared or approved. This test hasbeen authorized by FDA under an Emergency Use Authorization(EUA). This test is only authorized for the duration of thedeclaration that circumstances exist justifying the authorizationof emergency use of in vitro diagnostics for detection and/ordiagnosis of COVID-19 under Section 564(b)(1) of the Act, 21U.S.C. 360bbb-3(b)(1), unless the authorization is terminated orrevoked sooner. This test has been authorized only for detectingthe presence of antibodies against SARS-CoV-2, not for any otherviruses or pathogens.PATIENT NOT FASTINGPERFORMED BY: [facility] [facility] [id number] Information: NURSE DRAW SARS-CoV-2 Antibody, IgG Negative Normal [facility]; [facility] Work Phone: Comment on above: This sample does not contain detectable SARS-CoV-2 IgG antibodies.This negative result does not rule out SARS-CoV-2 infection.Correlation with epidemiologic risk factors and other clinical andlaboratory findings is recommended. Serologic results should not beused as the sole basis to diagnose or exclude recent UTUU-MtN-3dinzfkdul.This assay was performed using the Jean SARS-CoV-2 IgG assay. Test(s) 541270-EOTP- CoV-2 Antibody, IgGhas not been FDA cleared or approved. This test hasbeen authorized by FDA under an Emergency Use Authorization(EUA). This test is only authorized for the duration of thedeclaration that circumstances exist justifying the authorizationof emergency use of in vitro diagnostics for detection and/ordiagnosis of COVID-19 under Section 564(b)(1) of the Act, 21U.S.C. 360bbb-3(b)(1), unless the authorization is terminated orrevoked sooner. This test has been authorized only for detectingthe presence of antibodies against SARS-CoV-2, not for any otherviruses or pathogens.PATIENT NOT FASTINGPERFORMED BY: [facility] [facility] [id number] Information: NURSE DRAW CALCIFIDIOL (46087) VIT D 25 Ordered By: Doorperson Or Luggage Porter on 07-28-2019 25-Hydroxyvitamin D2+25-Hydroxyvitamin D3 [Mass/Vol] 32.9 ng/mL Normal 30.0-100.0 [facility] Work Phone: Comment on above: Vitamin D deficiency has been defined by the [place] [facility] and an Endocrine Society practice guideline as alevel of serum 25-OH vitamin D less than 20 ng/mL (1,2).The Endocrine Society went on to further define vitamin Dinsufficiency as a level between 21 and 29 ng/mL (2).1. IOM ([place] of Medicine). 2010. Dietary reference intakes for calcium and D. [place]: The National Academies Press.2. Jimmy MF, Joseph POLANCO, Marcela MATHEW, et al. Evaluation, treatment, and prevention of vitamin D deficiency: an Endocrine Society clinical practice guideline. JCEM. 2010; 96(7):1911-30. Test(s) 256982-LOO-T ; 599087-FCJ-W; 238609-AUM-Z; 832830-Gggvypvnagans; 925744-Dpkkcmlelac, Total; 641605-VKR-Y (Total);097599-Flolz LDL-P; 877362-GKW Size; 159668-MN-TY Scorewas developed and its performance characteristics determinedby [employer]. It has not been cleared or approved by the Foodand Drug Administration.PATIENT WAS FASTINGPERFORMED BY: [employer] [address] [id number] BY: [employer] [id number] NMR Profile (39922)Ordered B y: Doorperson Or Luggage Porter on 07-28-2019 Cholesterol [Mass/Vol] 213 mg/dL Abnormal 100-199 [facility] Internal Medicine Work Phone: Comment on above: Test(s) 806010-CBO-K ; 716845-FOB-O; 919439-AZP-X; 499613-Fyxylyzwicyut; 986151-Xvnortuqber, Total; 740015-BMH-E (Total);232815-Gvduz LDL-P; 865260-YEC Size; 685183-HM-RK Scorewas developed and its performance characteristics determinedby [employer]. It has not been cleared or approved by the Foodand Drug Administration.PATIENT WAS FASTINGPERFORMED BY: [employer] [address] [id number] BY: FamilyID[address] [id number] Lipoprotein.alpha [Moles/Vol] 35.6 umol/L Normal [facility] Internal Medicine Work Phone: Comment on above: Test(s) 278054-APE-F ; 816647-XQO-X; 515368-CCB-U; 922033-Qgtisxmgtksxb; 465245-Aylotohntqm, Total; 359731-MJS-B (Total);692357-Ksbrq LDL-P; 124633-VBP Size; 037027-SO-XO Scorewas developed and its performance characteristics determinedby [employer]. It has not been cleared or approved by the Foodand Drug Administration.PATIENT WAS FASTINGPERFORMED BY: Slanissue[address] [id number] BY: SUPENTAEnglewood Hospital and Medical CenterQdqswd[address] [id number] Lipoprotein.beta.subpa rticle [Entitic length] 20.8 nm Normal [facility] Work Phone: Comment on above: INTERPRETATIVE INFORMATION PARTICLE CONCENTRATION AND SIZE <--Lower CVD Risk Higher CVD Risk--> LDL AND HDL PARTICLES Percentile in Reference Population HDL-P (total) High 75th 50th 25th Low >34.9 34.9 30.5 26.7 <26.7 . Small LDL-P Low 25th 50th 75th High <117 117 527 839 >839 . LDL Size <-Large (Pattern A)-> <-Small (Pattern B)-> 23.0 20.6 20.5 19.0 Small LDL-P and LDL Size are associated with CVD risk, but not afterLDL-P is taken into account. Test(s) 483911-BPW-U ; 453567-NLY-P; 270748-ATY-B; 615232-Iflttpfzcedyy; 616851-Vdsfnletctn, Total; 592285-YDC-F (Total);089120-Xtgfa LDL-P; 655564-KOQ Size; 717689-KK-TB Scorewas developed and its performance characteristics determinedby [facility]Miss[facility]. It has not been cleared or approved by the Foodand Drug Administration.PATIENT WAS FASTINGPERFORMED BY: [facility]14[address] [facility] [id number] BY: [facility] [id number] Lipoprotein.beta.subpa rticle [Moles/Vol] 1667 nmol/L Abnormal [facility] Work Phone: Comment on above: Low < 1000 Moderate 1000 - 1299 Borderline-High 1300 - 1599 High 1600 - 2000 Very High > 2000 Test(s) 083626-VLP-R ; 213481-BLH-G; 984114-QUX-K; 931721-Nwhgatmahawqm; 657820-Qyfqwilrepj, Total; 011195-JPL-M (Total);377199-Oudjg LDL-P; 148964-XEE Size; 378795-AC-VJ Scorewas developed and its performance characteristics determinedby [employer]. It has not been cleared or approved by the Foodand Drug Administration.PATIENT WAS FASTINGPERFORMED BY: [employer] [facility] [id number] BY: [employer] [facility] [id number] Lipoprotein.beta.subpa rticle.small [Moles/Vol] 531 nmol/L Abnormal [facility] Work Phone: Comment on above: Test(s) 949170-FJK-G ; 059043-ERC-D; 159397-YUO-L; 671826-Ivchjhrkirwbz; 131109-Bscahtelypk, Total; 284131-JWC-F (Total);367043-Lzudj LDL-P; 683239-ELM Size; 993239-KL-AX Scorewas developed and its performance characteristics determinedby [employer]. It has not been cleared or approved by the Foodand Drug Administration.PATIENT WAS FASTINGPERFORMED BY: [employer] [facility] [id number] BY: [facility]ID6[facility] [id number] Triglyceride [Mass/Vol] 147 mg/dL Normal 0-149 [facility] Work Phone: Comment on above: Test(s) 684513-LOA-A ; 402891-PZK-N; 192283-SZY-E; 022028-Askxtptuqlhyt; 123158-Dpyqubnegxk, Total; 050411-WFU-C (Total);015491-Mlmwo LDL-P; 502233-HVM Size; 689649-IX-WW Scorewas developed and its performance characteristics determinedby [employer]. It has not been cleared or approved by the Foodand Drug Administration.PATIENT WAS FASTINGPERFORMED BY: [employer] [address] [id number] BY: [employer] Tecwcm[address] [id number] NMR Profile (71120) 46 mg/dL Normal [facility] Internal Medicine Work Phone: Comment on above: Test(s) 384117-ZWE-V ; 480724-YOF-N; 433160-BDA-M; 238239-Ckhuutsnsfgky; 414666-Angduqqzeni, Total; 901009-DVB-U (Total);888366-Nzril LDL-P; 854530-AQY Size; 444204-OI-RD Scorewas developed and its performance characteristics determinedby [employer]. It has not been cleared or approved by the Foodand Drug Administration.PATIENT WAS FASTINGPERFORMED BY: Slanissue[address] [id number] BY: [employer] [id number] NMR Profile (35764) 138 mg/dL Abnormal 0-99 [facility] Internal Medicine Work Phone: Comment on above: . Optimal < 100 Abov e optimal 100 - 129 Borderline 130 - 159 High 160 - 189 Very high > 189 .LDL-C is inaccurate if patient is non-fasting. Test(s) 078081-GOK-E ; 328821-EIF-Z; 621057-VBB-B; 862116-Jolzssmrknapq; 894096-Mechevotoui, Total; 676785-MOC-T (Total);779899-Kxjxv LDL-P; 937807-VTF Size; 528755-GI-WT Scorewas developed and its performance characteristics determinedby [employer]. It has not been cleared or approved by the Foodand Drug Administration.PATIENT WAS FASTINGPERFORMED BY: [employer] [address] [id number] BY: [employer] [id number] CBC WITH MANUAL DIFF (40356) Ordered By: Doorperson Or Luggage Porter on 10-27-2018 Basophils #/vol (Bld) 0.0 {x10E3/uL} Normal 0.0-0.2 [facility] Work Phone: Comment on above: PATIENT WAS FASTINGP ERFORMED BY: [address] [id number] Information: NURSE DRAW Basophils (Bld) [#/Vol] 0.0 10*3/uL Normal 0.0-0.2 [facility]; [facility] Work Phone: Comment on above: PATIENT WAS FASTINGP ERFORMED BY: [address] [id number] Information: NURSE DRAW Basophils/100 WBC (Bld) 0 % Normal [facility] Work Phone: Comment on above: PATIENT WAS FASTINGP ERFORMED BY: [address] [id number] Information: NURSE DRAW Eosinophils #/vol (Bld) 0.2 {x10E3/uL} Normal 0.0-0.4 [facility] Work Phone: Comment on above: PATIENT WAS FASTINGP ERFORMED BY: [address] [id number] Information: NURSE DRAW Eosinophils (Bld) [#/Vol] 0.2 10*3/uL Normal 0.0-0.4 [facility]; [facility] Work Phone: Comment on above: PATIENT WAS FASTINGP ERFORMED BY: [address] [id number] Information: NURSE DRAW Eosinophils/100 WBC (Bld) 2 % Normal [facility] Work Phone: Comment on above: PATIENT WAS FASTINGP ERFORMED BY: [address] [id number] Information: NURSE DRAW Erythrocyte distribution width Ratio (RBC) 13.3 % Normal 12.3-15.4 [facility] Work Phone: Comment on above: PATIENT WAS FASTINGP ERFORMED BY: IRINEO Morgan Vgyubi[address] [id number] Information: NURSE DRAW Hematocrit Volume Fraction (Bld) 40.0 % Normal 34.0-46.6 [facility] Work Phone: Comment on above: PATIENT WAS FASTINGP ERFORMED BY: [address] [id number] Information: NURSE DRAW Hemoglobin mass conc (Bld) 13.2 g/dL Normal 11.1-15.9 [facility] Work Phone: Comment on above: PATIENT WAS FASTINGP ERFORMED BY: IRINEO [address] [id number] Information: NURSE DRAW Immature granulocytes #/vol (Bld) 0.0 {x10E3/uL} Normal 0.0-0.1 [facility] Work Phone: Comment on above: PATIENT WAS FASTINGP ERFORMED BY: IRINEO Francesco[address] [id number] Information: NURSE DRAW Immature granulocytes (Bld) [#/Vol] 0.0 10*3/uL Normal 0.0-0.1 [facility]; [facility] Work Phone: Comment on above: PATIENT WAS FASTINGP ERFORMED BY: IRINEO [address] [id number] Information: NURSE DRAW Immature granulocytes/100 WBC (Bld) 0 % Normal [facility] Work Phone: Comment on above: PATIENT WAS FASTINGP ERFORMED BY: IRINEO [address] [id number] Information: NURSE DRAW Lymphocytes #/vol (Bld) 3.2 {x10E3/uL} Abnormal 0.7-3.1 [facility] Work Phone: Comment on above: PATIENT WAS FASTINGP ERFORMED BY: IRINEO [place] [id number] [id number] Information: NURSE DRAW Lymphocytes (Bld) [#/Vol] 3.2 10*3/uL Abnormal 0.7-3.1 [facility]; [facility] Internal Medicine Work Phone: Comment on above: PATIENT WAS FASTINGP ERFORMED BY: [address] [id number] Information: NURSE DRAW Lymphocytes/100 WBC (Bld) 38 % Normal [facility] Work Phone: Comment on above: PATIENT WAS FASTINGP ERFORMED BY: [address] [id number] Information: NURSE DRAW MCH Entitic mass (RBC) 28.9 pg Normal 26.6-33.0 [facility] Internal Medicine Work Phone: Comment on above: PATIENT WAS FASTINGP ERFORMED BY: [address] [id number] Information: NURSE DRAW MCHC mass conc (RBC) 33.0 g/dL Normal 31.5-35.7 [facility] Internal Medicine Work Phone: Comment on above: PATIENT WAS FASTINGP ERFORMED BY: [address] [id number] Information: NURSE DRAW MCV Entitic volume (RBC) 88 fL Normal 79-97 [facility] Internal Medicine Work Phone: Comment on above: PATIENT WAS FASTINGP ERFORMED BY: [address] [id number] Information: NURSE DRAW Monocytes #/vol (Bld) 0.8 {x10E3/uL} Normal 0.1-0.9 [facility] Internal Medicine Work Phone: Comment on above: PATIENT WAS FASTINGP ERFORMED BY: [address] [id number] Information: NURSE DRAW Monocytes (Bld) [#/Vol] 0.8 10*3/uL Normal 0.1-0.9 [facility]; [facility] Work Phone: Comment on above: PATIENT WAS FASTINGP ERFORMED BY: IRINEO Gomes[address] [id number] Information: NURSE DRAW Monocytes/100 WBC (Bld) 9 % Normal [facility] Work Phone: Comment on above: PATIENT WAS FASTINGP ERFORMED BY: IRINEO Killianlin[address] [id number] Information: NURSE DRAW Neutrophils #/vol (Bld) 4.3 {x10E3/uL} Normal 1.4-7.0 [facility] Work Phone: Comment on above: PATIENT WAS FASTINGP ERFORMED BY: IRINEO Killian[address] [id number] Information: NURSE DRAW Neutrophils (Bld) [#/Vol] 4.3 10*3/uL Normal 1.4-7.0 [facility]; [facility] Work Phone: Comment on above: PATIENT WAS FASTINGP ERFORMED BY: IRINEO Gomes[address] [id number] Information: NURSE DRAW Neutrophils/100 WBC (Bld) 51 % Normal [facility] Work Phone: Comment on above: PATIENT WAS FASTINGP ERFORMED BY: IRINEO Killianlin[address] [id number] Information: NURSE DRAW Platelets #/vol (Bld) 379 {x10E3/uL} Normal 150-379 [facility] Work Phone: Comment on above: PATIENT WAS FASTINGP ERFORMED BY: IRINEO Killian[address] [id number] Information: NURSE DRAW Platelets (Bld) [#/Vol] 379 10*3/uL Normal 150-379 [facility]; [facility] Work Phone: Comment on above: PATIENT WAS FASTINGP ERFORMED BY: IRINEO MayaMiss[facility] Bukygt[address] [id number] Information: NURSE DRAW RBC #/vol (Bld) 4.56 {x10E6/uL} Normal 3.77-5.28 [facility] Internal Medicine Work Phone: Comment on above: PATIENT WAS FASTINGP ERFORMED BY: [address] [id number] Information: NURSE DRAW RBC (Bld) [#/Vol] 4.56 10*6/uL Normal 3.77-5.28 [facility] Internal Medicine; [facility] Work Phone: Comment on above: PATIENT WAS FASTINGP ERFORMED BY: IRINEO FrancescoMissouri Baptist Medical Center Jlnrzt43[address] [id number] Information: NURSE DRAW WBC #/vol (Bld) 8.5 {x10E3/uL} Normal 3.4-10.8 [facility] Internal Medicine Work Phone: Comment on above: PATIENT WAS FASTINGP ERFORMED BY: IRINEO [place] [id number] [id number] Information: NURSE DRAW WBC (Bld) [#/Vol] 8.5 10*3/uL Normal 3.4-10.8 [facility] Internal [facility]; [facility] Internal Medicine Work Phone: Comment on above: PATIENT WAS FASTINGP ERFORMED BY: [place] [id number] [id number] Information: NURSE DRAW Metabolic Panel, Comprehensi ve (64507)Ordered By: Doorperson Or Luggage Porter on 10-27-2018 Albumin mass conc 4.5 g/dL Normal 3.5-5.5 [facility] Internal Medicine Work Phone: Comment on above: PATIENT WAS FASTINGP ERFORMED BY: IRINEO FrancescoJerry [place] [id number] [id number] Albumin/Globulin mass ratio 1.7 {ratio} Normal 1.2-2.2 [facility] Internal Medicine Work Phone: Comment on above: PATIENT WAS FASTINGP ERFORMED BY: IRINEO [facility] Ehibrh5360 [address]y RoadDublin [place] [id number] ALP [Catalytic activity/Vol] 45 U/L Normal 39-117 [facility]; [facility] Internal Medicine Work Phone: Comment on above: PATIENT WAS FASTINGP ERFORMED BY: IRINEO [facility] Jswfys6554 [address]y RoadDublin [place] [id number] ALP enzyme act/vol 45 [iU]/L Normal 39-117 [facility] Internal Medicine Work Phone: Comment on above: PATIENT WAS FASTINGP ERFORMED BY: IRINEO [facility] Rxbdyk2231 [address]y RoadDublin [place] [id number] ALT [Catalytic activity/Vol] 11 U/L Normal 0-32 [facility] Internal Medicine; [facility] Internal Medicine Work Phone: Comment on above: PATIENT WAS FASTINGP ERFORMED BY: IRINEO LabLydia KillianQwauip4478 [address]y RoadDublin [place] [id number] ALT enzyme act/vol 11 [iU]/L Normal 0-32 [facility] Internal Medicine Work Phone: Comment on above: PATIENT WAS FASTINGP ERFORMED BY: IRINEO [facility] Efzgiy7848 [address] RoadDublin [place] [id number] AST [Catalytic activity/Vol] 11 U/L Normal 0-40 [facility] Internal Medicine; [facility] Internal Medicine Work Phone: Comment on above: PATIENT WAS FASTINGP ERFORMED BY: IRINEO [facility] Rjqtjg4512 [address] RoadDublin [place] [id number] AST enzyme act/vol 11 [iU]/L Normal 0-40 [facility] Internal Medicine Work Phone: Comment on above: PATIENT WAS FASTINGP ERFORMED BY: IRINEO [facility] Mmpufw3641 [address] RoadDublin [place] [id number] Bilirubin [Mass/Vol] mg/dL Normal 0.0-1.2 [facility] Internal Medicine; [facility] Internal Medicine Work Phone: Comment on above: PATIENT WAS FASTINGP ERFORMED BY: IRINEO [facility] Uangvs5163 [address] RoadDublin [place] [id number] Bilirubin mass conc mg/dL Normal 0.0-1.2 Compr ehensive Internal Medicine Work Phone: Comment on above: PATIENT WAS FASTINGP ERFORMED BY: IRINEO LabCotavo GomesPglzvg9356 Lundy Roadblin [place] [id number] Calcium mass conc 9.6 mg/dL Normal 8.7-10.2 Compreh ensive Internal Medicine Work Phone: Comment on above: PATIENT WAS FASTINGP ERFORMED BY: IRINEO [facility] Rvytrr[address] [facility]in [place] [id number] Chloride molar conc 105 mmol/L Normal 96-106 Compr ehensive Internal Medicine Work Phone: Comment on above: PATIENT WAS FASTINGP ERFORMED BY: IRINEO LabLydia KillianMbxscr[address] [facility]in [place] [id number] CO2 molar conc 20 mmol/L Normal 20-29 Comprehens lyubov Internal Medicine Work Phone: Comment on above: PATIENT WAS FASTINGP ERFORMED BY: IRINEO [facility] Yohbiw[address] [facility]in [place] [id number] Creatinine mass conc 0.84 mg/dL Normal 0.57-1.00 Comp rehensive Internal Medicine Work Phone: Comment on above: PATIENT WAS FASTINGP ERFORMED BY: IRINEO [facility] Ilkach8413 [address] Roadblin [place] [id number] GFR/1.73 sq M predicted among blacks CKD-EPI vol rate/area (S/P/Bld) 96 mL/min/1.73 Normal [facility] Work Phone: Comment on above: PATIENT WAS FASTINGP ERFORMED BY: [facility] Vikefk1535 [address] RoadDublin [place] [id number] GFR/1.73 sq M predicted among non-blacks CKD-EPI vol rate/area (S/P/Bld) 83 mL/min/1.73 Normal Comprehensiv e Internal Medicine Work Phone: Comment on above: PATIENT WAS FASTINGP ERFORMED BY: IRINEO [facility] Zbgiip9723 [address] Roadblin [place] [id number] Globulin mass conc (S) 2.7 g/dL Normal 1.5-4.5 Co mprehensive Internal Medicine Work Phone: Comment on above: PATIENT WAS FASTINGP ERFORMED BY: IRINEO [facility] Ulkjoc7120 [address] Roadblin [place] [id number] Glucose mass conc 89 mg/dL Normal 65-99 Compreh ensive Internal Medicine Work Phone: Comment on above: PATIENT WAS FASTINGP ERFORMED BY: IRINEO [facility] Urqsax9[address] Roadblin [place] [id number] Potassium molar conc 4.6 mmol/L Normal 3.5-5.2 Comp rehensive Internal Medicine Work Phone: Comment on above: PATIENT WAS FASTINGP ERFORMED BY: IRINEO [facility] Ipcynp7184 [address] Roadblin [place] [id number] Protein mass conc 7.2 g/dL Normal 6.0-8.5 Compreh ensive Internal Medicine Work Phone: Comment on above: PATIENT WAS FASTINGP ERFORMED BY: IRINEO [facility] Ijicqj5350 Lundy RoadUnc Health Rockinghamin [place] [id number] Sodium molar conc 141 mmol/L Normal 134-144 Compreh ensive Internal Medicine Work Phone: Comment on above: PATIENT WAS FASTINGP ERFORMED BY: IRINEO LabCotavo Isfxok[address] [facility]in [place] [id number] Urea nitrogen mass conc 15 mg/dL Normal 6-24 [facility] Work Phone: Comment on above: PATIENT WAS FASTINGP ERFORMED BY: IRINEO [facility] Fsiheq10[address] Roadblin [place] [id number] Urea nitrogen/Creatinine mass ratio 18 mg/mg Normal 9-23 [facility] Work Phone: Comment on above: PATIENT WAS FASTINGP ERFORMED BY: IRINEO [facility] Uwifph[address] Roadblin [place] [id number] URINALYSIS ([id number])Ordered By : Doorperson Or Luggage Porter on 10-27-2018 Appearance Nom (U) Clear Normal Compre hensive Internal Medicine Work Phone: Comment on above: PATIENT WAS FASTINGP ERFORMED BY: IRINEO [facility] Bwvbyd0289 [address] RoadDublin [place] [id number] Bilirubin Ql (U) Negative Normal Comprehe nsive Internal Medicine Work Phone: Comment on above: PATIENT WAS FASTINGP ERFORMED BY: IRINEO Killianlin6[address] RoadDublin [place] [id number] Bilirubin Ql (U) Negative Normal Comprehe nsive Internal Medicine; [facility] Work Phone: Comment on above: PATIENT WAS FASTINGP ERFORMED BY: IRINEO Killianlin6[address] RoadDublin [place] [id number] Color Nom (U) Yellow Normal Comprehensi ve Internal Medicine Work Phone: Comment on above: PATIENT WAS FASTINGP ERFORMED BY: IRINEO Killianlin[address] RoadDublin [place] [id number] Glucose Ql (U) Negative Normal Comprehens lyubov Internal Medicine Work Phone: Comment on above: PATIENT WAS FASTINGP ERFORMED BY: IRINEO Killianlin[address] RoadDublin [place] [id number] Glucose Ql (U) Negative Normal Comprehens lyubov Internal Medicine; [facility] Work Phone: Comment on above: PATIENT WAS FASTINGP ERFORMED BY: IRINEO Gomes[address] RoadDublin [place] [id number] Hemoglobin Ql (U) Trace Abnormal Compreh ensive Internal Medicine Work Phone: Comment on above: PATIENT WAS FASTINGP ERFORMED BY: IRINEO LabConorrp Gjuhin0234 [address] RoadDublin [place] [id number] Ketones Ql (U) Negative Normal Comprehens lyubov Internal Medicine Work Phone: Comment on above: PATIENT WAS FASTINGP ERFORMED BY: IRINEO [facility] Bmdqll3637 [address] RoadDublin [place] [id number] Ketones Ql (U) Negative Normal Comprehens lyubov [facility]; [facility] Work Phone: Comment on above: PATIENT WAS FASTINGP ERFORMED BY: CB [facility] Wrvjfo2103 [address] RoadDublin [place] [id number] Leukocyte esterase Test strip Ql (U) Negative Normal [facility] Work Phone: Comment on above: PATIENT WAS FASTINGP ERFORMED BY: IRINEO [facility] Gdqocg5745 [address] RoadDublin [place] [id number] Leukocyte esterase Test strip Ql (U) Negative Normal [facility]; [facility] Work Phone: Comment on above: PATIENT WAS FASTINGP ERFORMED BY: IRINEO [facility] Fqpmdk7[address] RoadDublin [place] [id number] Microscopic observation LM Nom (Urine sed) See below: Normal [facility] Work Phone: Comment on above: Microscopic was mary cated and was performed. PATIENT WAS FASTINGP ERFORMED BY: IRINEO Killianlin[address] RoadDublin [place] [id number] Nitrite Ql (U) Negative Normal Comprehens lyubov Internal Medicine Work Phone: Comment on above: PATIENT WAS FASTINGP ERFORMED BY: IRINEO LabNvtavo KillianAuadzo5508 [address] RoadDublin [place] [id number] Nitrite Ql (U) Negative Normal Comprehens lyubov [facility]; [facility] Work Phone: Comment on above: PATIENT WAS FASTINGP ERFORMED BY: IRINEO MayaNvtavo KillianXilzch2208 [address] RoadDublin [place] [id number] pH (U) 6.0 [pH] Normal 5.0-7.5 [facility] Work Phone: Comment on above: PATIENT WAS FASTINGP ERFORMED BY: IRINEO [facility] Wlitye3022 [address] RoadDublin [place] [id number] Protein Ql (U) Negative Normal Comprehens lyubov Internal Medicine Work Phone: Comment on above: PATIENT WAS FASTINGP ERFORMED BY: IRINEO [facility] Scjwtm2986 [address] RoadDublin [place] [id number] Protein Ql (U) Negative Normal Comprehens lyubov [facility]; [facility] Work Phone: Comment on above: PATIENT WAS FASTINGP ERFORMED BY: [facility] Ljlpbc[address] [id number] Specific gravity Relative Density (U) 1.021 1 Normal 1.005-1.030 Comprehensi ve Internal Medicine Work Phone: Comment on above: PATIENT WAS FASTINGP ERFORMED BY: [facility] Znypax[address] [id number] Urobilinogen (U) [Mass/Vol] 0.2 mg/dL Normal 0.2-1.0 [facility]; [facility] Work Phone: Comment on above: PATIENT WAS FASTINGP ERFORMED BY: [facility] Xsphls[address] [id number] Urobilinogen Test strip mass conc (U) 0.2 mg/dL Normal 0.2-1.0 Comprehensiv e Internal Medicine Work Phone: Comment on above: PATIENT WAS FASTINGP ERFORMED BY: [facility] Zcxphx[address] [id number] HPV automatic (72691)on HPV 16+18+31+33+35+39+45+5 1+52+56+58+59+68 DNA Probe+sig amp Ql (Cvx) Negative Normal Comprehen [facility] Work Phone: Comment on above: This high-risk HPV t est detects thirteen high-risk types(16/18/31/33/35/39/45/51/52/56/58/59/68) without differentiation. . Source.............C ervix;EndocervixLMP / Prev Treat...PRA=[id number]. of containers..01 ThinPrep VialPATIENT NOT FASTINGPERFORMED BY: WB [facility] [address] [place] [address] [id number] BY: =G [facility] Lzjdonzigo442 [facility] [id number] Information: [id number] Microscopic observation Other stain Nom (Unsp spec) . Normal Comprehens lyubov Internal Medicine Work Phone: Comment on above: Source.............C ervix;EndocervixLMP / Prev Treat...WPJ=[id number]. of containers..01 ThinPrep VialPATIENT NOT FASTINGPERFORMED BY: [facility] [facility] W [id number] BY: =G [facility] Axrjlnbtlz[address] [facility] [place] [id number] Information: [id number] Pathology report final diagnosis Narrative SPRCS Normal Comprehensiv e Internal Medicine Work Phone: Comment on above: NEGATIVE FOR INTRAEP ITHELIAL LESION AND MALIGNANCY.Satisfactory for evaluation. Endocervical and/or squamous metaplasticcells (endocervical component) are present.Z11.51Monalisa Hammond Manager Visual (ASCP) Source.............C ervix;EndocervixLMP / Prev Treat...TLU=[id number]. of containers..01 ThinPrep VialPATIENT NOT FASTINGPERFORMED BY: Primordial120 [facility] [address] [id number] BY: =G LabHubspanUqurmwkqim[address] [facility] [place] [id number] Information: [id number] HPV automatic (06810) PAPSMR Normal [facility] prehensive Internal Medicine Work Phone: Comment on above: The Pap smear is a s creening test designed to aid in the detection ofpremalignant and malignant conditions of the uterine cervix. It is not adiagnostic procedure and should not be used as the sole means of detectingcervical cancer. Both false-positive and false-negative reports do occur. . Source.............C ervix;EndocervixLMP / Prev Treat...BCY=[id number]. of containers..01 ThinPrep VialPATIENT NOT FASTINGPERFORMED BY: [facility] [address] [id number] BY: =G [facility] [address] [id number] Information: [id number] HPV automatic (24825)Ordered By: Doorperson Or Luggage Porter on 10-22-2017 HPV 16+18+31+33+35+39+45+5 1+52+56+58+59+68 DNA Probe+sig amp Ql (Cvx) Negative Normal Comprehen sive Internal Medicine; [facility] Work Phone: Comment on above: This high-risk HPV t est detects thirteen high-risk types(16/18/31/33/35/39/45/51/52/56/58/59/68) without differentiation. . Source.............C ervix;EndocervixLMP / Prev Treat...LJC=[id number]. of containers..01 ThinPrep VialPATIENT NOT FASTINGPERFORMED BY: WB [facility] I[address] [id number] BY: =G [facility] Vf[address]xhtobc[address] [id number] Information: [id number] CALCIFIDIOL (29783) VIT D 25 on 09-18-2016 25-Hydroxyvitamin D2+25-Hydroxyvitamin D3 [Mass/Vol] 45.0 ng/mL Normal 30.0-100.0 [facility] Work Phone: Comment on above: Vitamin D deficiency has been defined by the [place] ofMedicine and an Endocrine Society practice guideline as alevel of serum 25-OH vitamin D less than 20 ng/mL (1,2).The Endocrine Society went on to further define vitamin Dinsufficiency as a level between 21 and 29 ng/mL (2).1. IOM ([place] of Medicine). 2010. Dietary reference intakes for calcium and D. [place]: The National Academies Press.2. Jimmy MF, Joseph NC, Marcela MATHEW, et al. Evaluation, treatment, and prevention of vitamin D deficiency: an Endocrine Society clinical practice guideline. JCEM. 2010; 96(7):1911-30. PERFORMED BY: [facility] Lydia Octtxj7848 [facility] [id number] Information: [id number], [id number] C-Reactive Protein, Quanton 12-26-2015 CRP [Mass/Vol] 4.3 mg/L Normal 0.0-4.9 [facility] Internal Medicine Work Phone: Comment on above: PATIENT WAS FASTINGP ERFORMED BY: [facility] Znzyiq3725 [facility] [id number] Information: [id number] LIPID PANEL (50419)on 2015 Cholesterol [Mass/Vol] 186 mg/dL Normal 100-199 [facility] Internal Medicine Work Phone: Comment on above: PATIENT WAS FASTINGP ERFORMED BY: [facility] Fwdmuc2184 [facility] [id number] Information: [id number] Cholesterol in HDL [Mass/Vol] 45 mg/dL Normal [facility] Work Phone: Comment on above: According to ATP-III Guidelines, HDL-C >59 mg/dL is considered anegative risk factor for CHD. PATIENT WAS FASTINGP ERFORMED BY: [facility] Jwxrto1323 [facility] [id number] Information: [id number] Cholesterol in LDL [Mass/Vol] 117 mg/dL Abnormal 0-99 [facility] Work Phone: Comment on above: PATIENT WAS FASTINGP ERFORMED BY: [facility] Awzzbo2726 [facility] [id number] Information: [id number] Cholesterol in LDL/Cholesterol in HDL [Mass ratio] 2.6 {ratio_units} Normal 0.0-3.2 [facility] Work Phone: Comment on above: LDL/HDL Ratio Men Wo men 1/2 Avg.Risk 1.0 1.5 Avg.Risk 3.6 3.2 2X Avg.Risk 6.2 5.0 3X Avg.Risk 8.0 6.1 PATIENT WAS FASTINGP ERFORMED BY: [place] [id number] [facility] [id number] Information: [id number] Cholesterol in VLDL [Mass/Vol] 24 mg/dL Normal 5-40 [facility] Work Phone: Comment on above: PATIENT WAS FASTINGP ERFORMED BY: [address] [id number] Information: [id number] Triglyceride [Mass/Vol] 122 mg/dL Normal 0-149 [facility] Work Phone: Comment on above: PATIENT WAS FASTINGP ERFORMED BY: [address] [id number] Information: [id number] TSH (28500)on 12-26-2015 TSH Qn 1.300 {uIU/mL} Normal 0.450-4.500 Comprehen sive Internal Medicine Work Phone: Comment on above: PATIENT WAS FASTINGP ERFORMED BY: [address] [id number] Written Authorizationon 12-14 Written Authorization WAR Normal Com prehensive Internal Medicine Work Phone: Comment on above: Written Authorizatio n Received.Authorization received from LIZ ALDRIDGE LPN [id number] by Karishma Cai PATIENT WAS FASTINGP ERFORMED BY: [facility] [place] [id number] [facility] [id number] ANTINUCLEAR ANTIBODIES DIREC Ton 09-04-2015 Nuclear Ab Ql (S) Negative Normal Compreh ensive Internal Medicine Work Phone: Comment on above: Performed at: [facility] [address] [id number] Director: Wyatt Silva PhD, Phone: [phone] [facility] (refer to re port for specific site)refer to report for address and phone number CBC W/Diff, Automatedon 08-17 Absolute Neut 5.1 {X10_3/uL} Normal 2.0-7.7 Compreh ensive Internal Medicine Work Phone: Comment on above: [facility] [address] [place], [address] Basophils/100 WBC (Bld) 0.2 % Normal 0-1 [facility] Work Phone: Comment on above: [facility] [address] [place], [address] Eosinophils/100 WBC (Bld) 1.0 % Normal 0-5 [facility] Work Phone: Comment on above: [facility] [address] [place], [place], [phone] Erythrocyte distribution width (RBC) [Ratio] 13.7 % Normal 11.6-14.6 [facility] Work Phone: Comment on above: [facility] [address] [place], [place], [phone](210 Hematocrit (Bld) [Volume fraction] 40.9 % Normal 37-47 [facility] Work Phone: Comment on above: [facility] [address] [place], [address] Hemoglobin (Bld) [Mass/Vol] 13.3 g/dL Normal 12.0-15.0 [facility] Work Phone: Comment on above: [facility] [address] [place], [address] IM GRAN % 0.200 % Normal 0.0-0.9 [facility] Work Phone: Comment on above: IG% - Immature Granu locytes (promyelocytes, myelocytes andmetamyelocytes) > 1% indicates that a LEFT SHIFT is Present. [facility] [address] [place], [place], [phone] Lymphocytes #/vol (Bld) 3.93 {X10_3/ul} Normal 0.83-4.51 [facility] Work Phone: Comment on above: [facility] [address] [place], [address] Lymphocytes/100 WBC (Bld) 39.9 % Normal 19-41 [facility] Work Phone: Comment on above: [facility] [address] [place], [address] MCH (RBC) [Entitic mass] 28.9 pg Normal 27.0-32.0 [facility] Work Phone: Comment on above: [facility] [address] [place], [address] MCHC (RBC) [Mass/Vol] 32.5 {g/gl} Normal 32-36 [facility] Internal Medicine Work Phone: Comment on above: [facility] [address] [place], [address] MCV (RBC) [Entitic vol] 88.7 fL Normal 81-99 [facility] Work Phone: Comment on above: [facility] [address] [place], [address] Monocytes/100 WBC (Bld) 7.1 % Normal 0-10 [facility] Work Phone: Comment on above: [facility] [address] [place], [address] Neutrophils/100 WBC (Bld) 51.6 % Normal 47-70 [facility] Work Phone: Comment on above: [facility] [address] [place], [address] Platelet mean volume (Bld) [Entitic vol] 9.6 fL Normal 6.2-12.0 Comprehensiv e Internal Medicine Work Phone: Comment on above: [facility] [address] [place], [address] Platelets (Bld) [#/Vol] 376 10*3/uL Normal 150-450 [facility] Work Phone: Comment on above: [facility] [address] [place], [address] RBC (Bld) [#/Vol] 4.61 {M/mm3} Normal 4.2-5.4 [facility] Work Phone: Comment on above: [facility] [address] [place], [address] RDW SD 44.2 fL Abnormal 35.1-43.9 [facility] Internal Medicine Work Phone: Comment on above: [facility] [address] [place], [address] WBC (Bld) [#/Vol] 9.9 10*3/uL Normal 4.4-11.0 [facility] Internal Medicine Work Phone: Comment on above: [facility] [address] [place], [address] CBC W/Diff, Automated 3.93 {X10_3/ul} Normal 0.83-4.51 [facility] Internal Medicine Work Phone: Comment on above: [facility] [address] [place], [address] CBC W/Diff, Automated 44.2 fL Abnormal 35.1-43.9 [facility] Work Phone: Comment on above: [facility] [address] [place], [address] CBC W/Diff, Automated 0.200 % Normal 0.0-0.9 [facility] Internal Medicine Work Phone: Comment on above: IG% - Immature Granu locytes (promyelocytes, myelocytes andmetamyelocytes) > 1% indicates that a LEFT SHIFT is Present. [facility] [address] [place], [place], [phone] CBC W/Diff, Automated 5.1 {X10_3/uL} Normal 2.0-7.7 [facility] Work Phone: Comment on above: [facility] [address] [place], [place], [phone] CRPon 09-04-2015 CRP [Mass/Vol] 4.90 mg/L Abnormal 0.0-3.0 Comprehens lyubov Internal Medicine Work Phone: Comment on above: C-Reactive Protein ( CRP) provides useful information for thediagnosis, therapy and monitoring of inflammatory processesand associated diseases. For the evaluation of Relative Riskfor Cardiovascular Disease, a High Sensitivity CRP (HSCRP)should be ordered. Is Patient Taking Vi tamins or Folic Acid Supplements? [facility] [address] [place], [place], [address] Comprehensive Metabolic Prof ilon 09-04-2015 Comprehensive metabolic 2000 panel 1.1 {RATIO} Normal 0.9-2.4 Comprehensi ve Internal Medicine Work Phone: Comment on above: Is Patient Taking Vi tamins or Folic Acid Supplements? [facility] [address] [place], [place], [phone] Comprehensive metabolic 2000 panel 107 mmol/L Normal 98-107 Comprehensi ve Internal Medicine Work Phone: Comment on above: Is Patient Taking Vi tamins or Folic Acid Supplements? [facility] [address] [place], [place], [phone] Comprehensive metabolic 2000 panel 72 mg/dL Normal 70-110 Comprehensi ve Internal Medicine Work Phone: Comment on above: Is Patient Taking Vi tamins or Folic Acid Supplements? [facility] [address] [place], [place], [address] Comprehensive metabolic 2000 panel 15 mg/dL Normal 7-18 Comprehensi ve Internal Medicine Work Phone: Comment on above: Is Patient Taking Vi tamins or Folic Acid Supplements? [facility] [address] [place], [address] Comprehensive metabolic 2000 panel 0.83 mg/dL Normal 0.55-1.20 Comprehensi ve Internal Medicine Work Phone: Comment on above: The validity of the calculated GFR AND GFRAA in patients over70 years has not been determined. Clinical correlation isessential. Is Patient Taking Vi tamins or Folic Acid Supplements? [facility] [address] [place], [phone] Comprehensive metabolic 2000 panel 79 mL/min Normal Comprehensi ve Internal Medicine Work Phone: Comment on above: Non- GFR Calc Is Patient Taking Vi tamins or Folic Acid Supplements? [facility] [address] [place], [place], [address] Comprehensive metabolic 2000 panel 95 mL/min Normal Comprehensi ve Internal Medicine Work Phone: Comment on above: GFR Calc Is Patient Taking Vi tamins or Folic Acid Supplements? [facility] [address] [place], [place], [address] Comprehensive metabolic 2000 panel 18.0 {RATIO} Normal 10-20 Comprehensi ve Internal Medicine Work Phone: Comment on above: Is Patient Taking Vi tamins or Folic Acid Supplements? [facility] [address] [place], [place], [address] Comprehensive metabolic 2000 panel 7.4 g/dL Normal 6.4-8.2 Comprehensi ve Internal Medicine Work Phone: Comment on above: Is Patient Taking Vi tamins or Folic Acid Supplements? [facility] [address] [place], [place], [address] Comprehensive metabolic 2000 panel 3.8 g/dL Normal 3.4-5.0 Comprehensi ve Internal Medicine Work Phone: Comment on above: Is Patient Taking Vi tamins or Folic Acid Supplements? [facility] [address] [place], [place], [address] Comprehensive metabolic 2000 panel 3.6 g/dL Abnormal 2.3-3.5 Comprehensi ve Internal Medicine Work Phone: Comment on above: Is Patient Taking Vi tamins or Folic Acid Supplements? [facility] [address] [place], [address] Comprehensive metabolic 2000 panel 4.3 mmol/L Normal 3.5-5.1 Comprehensi ve Internal Medicine Work Phone: Comment on above: Is Patient Taking Vi tamins or Folic Acid Supplements? [facility] [address] [place], [place], [address] Comprehensive metabolic 2000 panel 8.9 mg/dL Normal 8.5-10.1 Comprehensi ve Internal Medicine Work Phone: Comment on above: Is Patient Taking Vi tamins or Folic Acid Supplements? [facility] [address] [place], [address] Comprehensive metabolic 2000 panel 14 U/L Abnormal 15-37 Comprehensi ve Internal Medicine Work Phone: Comment on above: Is Patient Taking Vi tamins or Folic Acid Supplements? [facility] [address] [place], [address] Comprehensive metabolic 2000 panel 47 U/L Abnormal 50-136 Comprehensi ve Internal Medicine Work Phone: Comment on above: Is Patient Taking Vi tamins or Folic Acid Supplements? [facility] [address] [place], [address] Comprehensive metabolic 2000 panel 16 U/L Normal 12-78 Comprehensi ve Internal Medicine Work Phone: Comment on above: Is Patient Taking Vi tamins or Folic Acid Supplements? [facility] [address] [place], [place], [address] Comprehensive metabolic 2000 panel 0.30 mg/dL Normal 0.20-1.00 Comprehensi ve Internal Medicine Work Phone: Comment on above: Is Patient Taking Vi tamins or Folic Acid Supplements? [facility] [address] [place], [place], [address] Comprehensive metabolic 2000 panel 141 mmol/L Normal 136-145 Comprehensi ve Internal Medicine Work Phone: Comment on above: Is Patient Taking Vi tamins or Folic Acid Supplements? [facility] [address] [place], [place], [address] Comprehensive metabolic 2000 panel 26.0 mmol/L Normal 21.0-32.0 Comprehensi ve Internal Medicine Work Phone: Comment on above: Is Patient Taking Vi tamins or Folic Acid Supplements? [facility] [address] [place], [place], [address] Comprehensive metabolic 2000 panel 8 1 Normal 5-15 Comprehensi ve Internal Medicine Work Phone: Comment on above: Is Patient Taking Vi tamins or Folic Acid Supplements? [facility] [address] [place], [place], [address] Erythrocyte Sed Rateon 09-04 Erythrocyte Sed Rate 5 mm/h Normal 0-20 Comp rehensive Internal Medicine Work Phone: Comment on above: [facility] [address] [place], [place], [phone] Folates, (Folic Acid)on 08-17 Folates, (Folic Acid) 25.00 ng/mL Abnormal 3.1-17.5 Co mprehensive Internal Medicine Work Phone: Comment on above: Is Patient Taking Vi tamins or Folic Acid Supplements? [facility] [address] [place], [place], [phone] Rheumatoid Factoron 09-04-19 16 Rheumatoid factor Qn [IU]/mL Normal Comp rehensive Internal Medicine Work Phone: Comment on above: Is Patient Taking Vi tamins or Folic Acid Supplements? [facility] [address] [place], [address] Thyroid Stim Hormone (TSH)on 09-04-2015 TSH Qn 1.24 {uIU/mL} Normal 0.358-3.74 Comprehensi Internal Medicine Work Phone: Comment on above: Is Patient Taking Vi tamins or Folic Acid Supplements? [facility] [address] [place], [address] Vitamin B12on 09-04-2015 Cobalamin (Vitamin B12) [Mass/Vol] 592 pg/mL Normal 211-911 [facility] Medicine Work Phone: Comment on above: [facility] [address] [place], [address] Vitamin D,25 Hydroxyon 09-04 Vitamin D,25 Hydroxy 29.2 ng/mL [facility] Work Phone: Comment on above: Vitamin D 25(OH) Sta tus Range Deficiency <20 ng/mL (50nmol/L) Insuffciency 20 - 30 ng/mL (50 - 75 nmol/L) Sufficiency 30 - 100 ng/mL (75 - 250 nmol/L) Toxicity >100 ng/mL (>250 nmol/L) [facility] [address] [place], [place], [address] Vital Signs Date Time Vital Sign Value Performing Clinician Facility 04-22-2023 07:22-0400 Body height 159.51 cm Yanira Fletcher LPN [facility]; [facility] Work Phone: 04-22-2023 07:22-0400 Body mass index (BMI) [Ratio] 34.27 kg/m2 Yanira Fletcher LPN [facility]; [facility] Work Phone: 04-22-2023 07:22-0400 Body surface area Derived from formula 1.9 m2 Yanira Fletcher LPN [facility]; [facility] Work Phone: 04-22-2023 07:22-0400 Body temperature 97.9 [degF] Yanira Fletcher LPN [facility]; [facility] Work Phone: 04-22-2023 07:22-0400 Body weight 87.2 kg Yanira Fletcher LPN [facility]; [facility] Work Phone: 04-22-2023 07:22-0400 Diastolic blood pressure 88 mm[Hg] Yanira Fletcher LPN [facility]; [facility] Work Phone: Comment on above: Patient Position: Sitting; Cuff Location : Left Arm; Cuff Size: Standard 04-22-2023 07:22-0400 Heart rate 86 /min Yanira Fletcher LPN [facility]; [facility] Work Phone: Comment on above: Pattern: Regular 04-22-2023 07:22-0400 Respiratory rate 16 /min Yanira Fletcher LPN [facility]; [facility] Work Phone: Comment on above: Pattern: Unlabored 04-22-2023 07:22-0400 SaO2% (BldA) [Mass fraction] 97 % Yanira Fletcher LPN [facility]; [facility] Work Phone: Comment on above: Room air 04-22-2023 07:22-0400 Systolic blood pressure 128 mm[Hg] Yanira Fletcher LPN [facility]; [facility] Work Phone: Comment on above: Patient Position: Sitting; Cuff Location : Left Arm; Cuff Size: Standard 03-11-2023 09:47-0400 Body height 159.51 cm Hanna Peña MA [facility]; [facility] Work Phone: 03-11-2023 09:47-0400 Body mass index (BMI) [Ratio] 34.06 kg/m2 Hanna Peña MA [facility]; [facility] Work Phone: 03-11-2023 09:47-0400 Body surface area Derived from formula 1.89 m2 Hanna Peña MA [facility]; [facility] Work Phone: 03-11-2023 09:47-0400 Body temperature 95.6 [degF] Hanna Peña MA [facility]; [facility] Work Phone: 03-11-2023 09:47-0400 Body weight 86.65 kg Hanna Peña MA [facility]; [facility] Work Phone: 03-11-2023 09:47-0400 Diastolic blood pressure 90 mm[Hg] Hanna Peña MA [facility]; [facility] Work Phone: Comment on above: Patient Position: Sitting; Cuff Location : Left Arm; Cuff Size: Standard 03-11-2023 09:47-0400 Heart rate 76 /min Hanna Peña MA [facility]; [facility] Work Phone: Comment on above: Pattern: Regular 03-11-2023 09:47-0400 SaO2% (BldA) [Mass fraction] 98 % Hanna Peña MA [facility]; [facility] Work Phone: Comment on above: Room air 03-11-2023 09:47-0400 Systolic blood pressure 140 mm[Hg] Hanna Peña MA [facility]; [facility] Work Phone: Comment on above: Patient Position: Sitting; Cuff Location : Left Arm; Cuff Size: Standard 06-12-2022 10:16-0400 Body height 159.51 cm [facility]; [facility] Work Phone: 06-12-2022 10:16-0400 Body mass index (BMI) [Ratio] 34.06 kg/m2 Smiley [facility] Comprehensive [facility] Medicine; [facility] Work Phone: 06-12-2022 10:16-0400 Body surface area Derived from formula 1.89 m2 Smiley Manclarence [facility]; [facility] Work Phone: 06-12-2022 10:16-0400 Body temperature 97.9 [degF] Smiley Barragan [facility]; [facility] Work Phone: Comment on above: Method: Thermal Scan 06-12-2022 10:16-0400 Body weight 86.65 kg Smiley Barragan [facility] Comprehensive [facility]; [facility] Work Phone: 06-12-2022 10:16-0400 Diastolic blood pressure 70 mm[Hg] Smiley Barragan [facility]; [facility] Work Phone: Comment on above: Patient Position: Sitting; Cuff Location : Left Arm; Cuff Size: Standard 06-12-2022 10:16-0400 Heart rate 86 /min Smiley Barragan [facility]; [facility] Work Phone: Comment on above: Pattern: Regular 06-12-2022 10:16-0400 Respiratory rate 16 /min Smiley Barragan [facility]; [facility] Work Phone: Comment on above: Pattern: Unlabored 06-12-2022 10:16-0400 SaO2% (BldA) [Mass fraction] 98 % Smiley Barragan [facility] [facility] [place] [facility]; [facility] Work Phone: Comment on above: Room air 06-12-2022 10:16-0400 Systolic blood pressure 122 mm[Hg] Smiley Barragan [facility] [place] [facility]; [facility] Work Phone: Comment on above: Patient Position: Sitting; Cuff Location : Left Arm; Cuff Size: Standard 04-02-2022 07:36-0400 Body height 159.51 cm Yanira Fletcher [facility]; [facility] Work Phone: 04-02-2022 07:36-0400 Body mass index (BMI) [Ratio] 34.06 kg/m2 Yanira Fletcher [facility]; [facility] Work Phone: 04-02-2022 07:36-0400 Body surface area Derived from formula 1.89 m2 Yanira Fletcher [facility]; [facility] Work Phone: 04-02-2022 07:36-0400 Body temperature 97.6 [degF] Yanira Fletcher LPN [facility]; [facility] Work Phone: 04-02-2022 07:36-0400 Body weight 86.65 kg Yanira Fletcher LPN [facility]; [facility] Work Phone: 04-02-2022 07:36-0400 Diastolic blood pressure 82 mm[Hg] Yanira Fletcher LPN [facility]; [facility] Work Phone: Comment on above: Patient Position: Sitting; Cuff Location : Left Arm; Cuff Size: Standard 04-02-2022 07:36-0400 Heart rate 70 /min Yanira Fletcher LPN [facility]; [facility] Work Phone: Comment on above: Pattern: Regular 04-02-2022 07:36-0400 Respiratory rate 16 /min Yanira Fletcher [facility]; [facility] Work Phone: Comment on above: Pattern: Unlabored 04-02-2022 07:36-0400 SaO2% (BldA) [Mass fraction] 98 % Yanira Fletcher LPN [facility]; [facility] Work Phone: Comment on above: Room air 04-02-2022 07:36-0400 Systolic blood pressure 138 mm[Hg] Yanira Fletcher LPN [facility]; [facility] Work Phone: Comment on above: Patient Position: Sitting; Cuff Location : Left Arm; Cuff Size: Standard 08-01-2021 09:42-0500 Body height 159.51 cm Smiley Barragan [facility]; [facility] Work Phone: 08-01-2021 09:42-0500 Body mass index (BMI) [Ratio] 34.06 kg/m2 Smiley Barragan [facility]; [facility] Work Phone: 08-01-2021 09:42-0500 Body surface area Derived from formula 1.89 m2 Smiley Barragan [facility]; [facility] Work Phone: 08-01-2021 09:42-0500 Body temperature 96.9 [degF] Smiley Barragan [facility]; [facility] Work Phone: Comment on above: Method: Thermal Scan 08-01-2021 09:42-0500 Body weight 86.65 kg Smiley Barragan [facility]; [facility] Work Phone: 08-01-2021 09:42-0500 Diastolic blood pressure 72 mm[Hg] Smiley Barragan [facility]; [facility] Work Phone: Comment on above: Patient Position: Sitting; Cuff Location : Left Arm; Cuff Size: Standard 08-01-2021 09:42-0500 Heart rate 92 /min Smiley Barragan [facility]; [facility] Work Phone: Comment on above: Pattern: Regular 08-01-2021 09:42-0500 Respiratory rate 16 /min Smiley Barragan [facility]; [facility] Work Phone: Comment on above: Pattern: Unlabored 08-01-2021 09:42-0500 SaO2% (BldA) [Mass fraction] 98 % Smiley Barragan [facility]; [facility] Work Phone: Comment on above: Room air 08-01-2021 09:42-0500 Systolic blood pressure 124 mm[Hg] Smiley Barragan [facility]; [facility] Work Phone: Comment on above: Patient Position: Sitting; Cuff Location : Left Arm; Cuff Size: Standard 05-23-2021 12:54-0400 Body height 159.51 cm [facility]; [facility] Work Phone: 05-23-2021 12:54-0400 Body mass index (BMI) [Ratio] 34.06 kg/m2 Smiley Barragan [facility] [place]; [facility] Work Phone: 05-23-2021 12:54-0400 Body surface area Derived from formula 1.89 m2 Smiley Barragan [facility]; [facility] Work Phone: 05-23-2021 12:54-0400 Body temperature 97.1 [degF] Smiley Barragan [facility]; [facility] Work Phone: Comment on above: Method: Thermal Scan 05-23-2021 12:54-0400 Body weight 86.65 kg Smiley Barragan [facility]; [facility] Work Phone: 05-23-2021 12:54-0400 Diastolic blood pressure 70 mm[Hg] Smiley Barragan [facility]; [facility] Work Phone: Comment on above: Patient Position: Sitting; Cuff Location : Left Arm; Cuff Size: Standard 05-23-2021 12:54-0400 Heart rate 80 /min Smiley Barragan [facility]; [facility] Work Phone: Comment on above: Pattern: Regular 05-23-2021 12:54-0400 Respiratory rate 16 /min Smiley Barragan [facility]; [facility] Work Phone: Comment on above: Pattern: Unlabored 05-23-2021 12:54-0400 Systolic blood pressure 118 mm[Hg] Smiley Barragan [facility]; [facility] Work Phone: Comment on above: Patient Position: Sitting; Cuff Location : Left Arm; Cuff Size: Standard 03-25-2021 12:24-0400 Body height 159.51 cm Laureen Hagan [facility]; [facility] Work Phone: 03-25-2021 12:24-0400 Body mass index (BMI) [Ratio] 34.06 kg/m2 Laureen Slarb [facility]; [facility] Work Phone: 03-25-2021 12:24-0400 Body surface area Derived from formula 1.89 m2 [facility]; [facility] Work Phone: 03-25-2021 12:24-0400 Body temperature 97.3 [degF] Laureen Bentley [facility]ASM[facility]; [facility] Work Phone: 03-25-2021 12:24-0400 Body weight 86.65 kg Laureen Bentley [facility]; [facility] Work Phone: 03-25-2021 12:24-0400 Diastolic blood pressure 84 mm[Hg] Laureen Bentley [place] [facility]; [facility] Work Phone: Comment on above: Patient Position: Sitting; Cuff Location : Left Arm; Cuff Size: Standard 03-25-2021 12:24-0400 Heart rate 104 /min Laureen Hagan LPN [facility]; [facility] Work Phone: Comment on above: Pattern: Regular 03-25-2021 12:24-0400 SaO2% (BldA) [Mass fraction] 98 % Laureen Hagan LPN [facility]; [facility] Work Phone: Comment on above: Room air 03-25-2021 12:24-0400 Systolic blood pressure 142 mm[Hg] Laureen Bentley JASMINE [facility]; [facility] Work Phone: Comment on above: Patient Position: Sitting; Cuff Location : Left Arm; Cuff Size: Standard 03-08-2020 07:57-0400 BMI (Body Mass Index) 34.06 kg/m2 ROSE Suazo LPN [facility] Work Phone: 03-08-2020 07:57-0400 Body Temperature 97.9 [degF] ROSE Suazo LPN [facility] Work Phone: Comment on above: Method: Temporal 03-08-2020 07:57-0400 Body weight 86.65 kg ROSE Suazo LPN [facility] Work Phone: 03-08-2020 07:57-0400 BP Diastolic 78 mm[Hg] ROSE Suazo LPN [facility] Work Phone: Comment on above: Patient Position: Sitting; Cuff Location : Left Arm; Cuff Size: Standard 03-08-2020 07:57-0400 BP Systolic 116 mm[Hg] ROSE Suazo LPN [facility] Work Phone: Comment on above: Patient Position: Sitting; Cuff Location : Left Arm; Cuff Size: Standard 03-08-2020 07:57-0400 BSA (Body Surface Area) 1.89 m2 ROSE Suazo LPN [facility] Work Phone: 03-08-2020 07:57-0400 Height 159.51 cm ROSE Suazo LPN [facility] Work Phone: 03-08-2020 07:57-0400 Pulse (Heart Rate) 80 /min ROSE Suazo LPN [facility] Work Phone: Comment on above: Pattern: Regular 03-08-2020 07:57-0400 Pulse Oximetry 97 % Torsten Mitchell [facility] Work Phone: Comment on above: Room air 03-08-2020 07:57-0400 Respiratory Rate 20 /min ROSE Suazo LPN [facility] Work Phone: Comment on above: Pattern: Unlabored 03-08-2020 07:57-0400 SaO2% (BldA) [Mass fraction] 97 % ROSE Suazo LPN [facility]; [facility] Work Phone: Comment on above: Room air 07-28-2019 06:57-0500 BMI (Body Mass Index) 33.69 kg/m2 ROSE Suazo LPN [facility] Work Phone: 07-28-2019 06:57-0500 Body Temperature 97.8 [degF] ROSE Suazo LPN [facility] Work Phone: Comment on above: Method: Temporal 07-28-2019 06:57-0500 Body weight 85.73 kg ROSE Suazo LPN [facility] Work Phone: 07-28-2019 06:57-0500 BP Diastolic 90 mm[Hg] ROSE Suazo LPN [facility] Work Phone: Comment on above: Patient Position: Sitting; Cuff Location : Left Arm; Cuff Size: Large 07-28-2019 06:57-0500 BP Systolic 144 mm[Hg] ROSE Suazo LPN [facility] Work Phone: Comment on above: Patient Position: Sitting; Cuff Location : Left Arm; Cuff Size: Large 07-28-2019 06:57-0500 BSA (Body Surface Area) 1.88 m2 ROSE Suazo LPN [facility] Work Phone: 07-28-2019 06:57-0500 Height 159.51 cm ROSE Suazo LPN [facility] Work Phone: 07-28-2019 06:57-0500 Pulse (Heart Rate) 84 /min ROSE Suazo LPN [facility] Work Phone: Comment on above: Pattern: Regular 07-28-2019 06:57-0500 Pulse Oximetry 98 % Torsten Mitchell [facility] Work Phone: Comment on above: Room air 07-28-2019 06:57-0500 Respiratory Rate 20 /min ROSE Suazo LPN [facility] Work Phone: Comment on above: Pattern: Unlabored 07-28-2019 06:57-0500 SaO2% (BldA) [Mass fraction] 98 % ROSE Suazo LPN [facility]; [facility] Work Phone: Comment on above: Room air 06-27-2019 09:27-0500 BMI (Body Mass Index) 33.69 kg/m2 ROSE Suazo LPN [facility] Work Phone: 06-27-2019 09:27-0500 Body Temperature 97.9 [degF] ROSE Suazo LPN [facility] Work Phone: Comment on above: Method: Temporal 06-27-2019 09:27-0500 Body weight 85.73 kg ROSE Suazo LPN [facility] Work Phone: 06-27-2019 09:27-0500 BP Diastolic 78 mm[Hg] ROSE Suazo LPN [facility] Work Phone: Comment on above: Patient Position: Sitting; Cuff Location : Left Arm; Cuff Size: Standard 06-27-2019 09:27-0500 BP Systolic 122 mm[Hg] ROSE Suazo LPN [facility] Work Phone: Comment on above: Patient Position: Sitting; Cuff Location : Left Arm; Cuff Size: Standard 06-27-2019 09:27-0500 BSA (Body Surface Area) 1.88 m2 ROSE Suazo LPN [facility] Work Phone: 06-27-2019 09:27-0500 Height 159.51 cm ROSE Suazo LPN [facility] Work Phone: 06-27-2019 09:27-0500 Pulse (Heart Rate) 104 /min ROSE Suazo LPN [facility] Work Phone: Comment on above: Pattern: Regular 06-27-2019 09:27-0500 Pulse Oximetry 98 % Torsten Mitchell [facility] Work Phone: Comment on above: Room air 06-27-2019 09:27-0500 Respiratory Rate 20 /min ROSE Suazo LPN [facility] Work Phone: Comment on above: Pattern: Unlabored 06-27-2019 09:27-0500 SaO2% (BldA) [Mass fraction] 98 % ROSE Suazo LPN [facility]; [facility] Work Phone: Comment on above: Room air 01-20-2019 07:26-0400 BMI (Body Mass Index) 33.69 kg/m2 ROSE Suazo LPN [facility] Work Phone: 01-20-2019 07:26-0400 Body Temperature 97.6 [degF] ROSE Suazo LPN [facility] Work Phone: Comment on above: Method: Temporal 01-20-2019 07:26-0400 Body weight 85.73 kg ROSE Suazo LPN [facility] Work Phone: 01-20-2019 07:26-0400 BP Diastolic 90 mm[Hg] ROSE Suazo LPN [facility] Work Phone: Comment on above: Patient Position: Sitting; Cuff Location : Left Arm; Cuff Size: Standard 01-20-2019 07:26-0400 BP Systolic 126 mm[Hg] ROSE Suazo LPN [facility] Work Phone: Comment on above: Patient Position: Sitting; Cuff Location : Left Arm; Cuff Size: Standard 01-20-2019 07:26-0400 BSA (Body Surface Area) 1.88 m2 ROSE Suazo LPN [facility] Work Phone: 01-20-2019 07:26-0400 Height 159.51 cm ROSE Suazo LPN [facility] Work Phone: 01-20-2019 07:26-0400 Pulse (Heart Rate) 74 /min ROSE Suazo LPN [facility] Work Phone: Comment on above: Pattern: Regular 01-20-2019 07:26-0400 Pulse Oximetry 98 % Torsten Mitchell [facility] Work Phone: Comment on above: Room air 01-20-2019 07:26-0400 Respiratory Rate 20 /min ROSE Suazo LPN [facility] Work Phone: Comment on above: Pattern: Unlabored 01-20-2019 07:26-0400 SaO2% (BldA) [Mass fraction] 98 % ROSE Suazo LPN [facility]; [facility] Work Phone: Comment on above: Room air 01-12-2019 07:00-0400 BMI (Body Mass Index) 32.27 kg/m2 ROSE Suazo LPN [facility] Work Phone: 01-12-2019 07:00-0400 Body Temperature 97.9 [degF] ROSE Suazo LPN [facility] Work Phone: Comment on above: Method: Temporal 01-12-2019 07:00-0400 Body weight 82.1 kg ROSE Suazo LPN [facility] Work Phone: 01-12-2019 07:00-0400 BP Diastolic 74 mm[Hg] ROSE Suazo LPN [facility] Work Phone: Comment on above: Patient Position: Sitting; Cuff Location : Left Arm; Cuff Size: Standard 01-12-2019 07:00-0400 BP Systolic 110 mm[Hg] ROSE Suazo [place] [facility] Work Phone: Comment on above: Patient Position: Sitting; Cuff Location : Left Arm; Cuff Size: Standard 01-12-2019 07:00-0400 BSA (Body Surface Area) 1.85 m2 ROSE Suazo [place] [facility] Work Phone: 01-12-2019 07:00-0400 Height 159.51 cm ROSE Suazo [place] [facility] Work Phone: 01-12-2019 07:00-0400 Pulse (Heart Rate) 70 /min ROSE Suazo [place] [facility] Work Phone: Comment on above: Pattern: Regular 01-12-2019 07:00-0400 Pulse Oximetry 98 % Torsten Vinayak [facility] Work Phone: Comment on above: Room air 01-12-2019 07:00-0400 Respiratory Rate 20 /min ROSE Suazo [place] [facility] Work Phone: Comment on above: Pattern: Unlabored 01-12-2019 07:00-0400 SaO2% (BldA) [Mass fraction] 98 % ROSE Suazo [place] [facility]; [facility] Work Phone: Comment on above: Room air 01-12-2019 07:00-0400 Weight 82.1 kg Torsten Grimmlatoya [facility] Work Phone: 10-22-2017 06:35-0500 BMI (Body Mass Index) 32.27 kg/m2 ROSE Suazo [place] [facility] Work Phone: 10-22-2017 06:35-0500 Body Temperature 97.6 [degF] ROSE Suazo [place] [facility] Work Phone: Comment on above: Method: Temporal 10-22-2017 06:35-0500 Body weight 82.1 kg ROSE Suazo [place] [facility] Work Phone: 10-22-2017 06:35-0500 BP Diastolic 78 mm[Hg] ROSE Suazo LPN [facility] Work Phone: Comment on above: Patient Position: Sitting; Cuff Location : Left Arm; Cuff Size: Standard 10-22-2017 06:35-0500 BP Systolic 122 mm[Hg] ROSE Suazo LPN [facility] Internal Medicine Work Phone: Comment on above: Patient Position: Sitting; Cuff Location : Left Arm; Cuff Size: Standard 10-22-2017 06:35-0500 BSA (Body Surface Area) 1.85 m2 ROSE Suazo LPN [facility] Work Phone: 10-22-2017 06:35-0500 Height 159.51 cm ROSE Suazo LPN [facility] Internal Medicine Work Phone: 10-22-2017 06:35-0500 Pulse (Heart Rate) 90 /min ROSE Suazo LPN [facility] Work Phone: Comment on above: Pattern: Regular 10-22-2017 06:35-0500 Pulse Oximetry 98 % Torsten Vinayak [facility] Internal Medicine Work Phone: Comment on above: Room air 10-22-2017 06:35-0500 Respiratory Rate 20 /min ROSE Suazo LPN [facility] Work Phone: Comment on above: Pattern: Unlabored 10-22-2017 06:35-0500 SaO2% (BldA) [Mass fraction] 98 % ROSE Suazo LPN [facility]; [facility] Work Phone: Comment on above: Room air 10-22-2017 06:35-0500 Weight 82.1 kg Torsten Grimmlatoya [facility] Internal Medicine Work Phone: 07-27-2017 10:50-0500 BMI (Body Mass Index) 33.13 kg/m2 Smiley [facility]rence [facility] Work Phone: 07-27-2017 10:50-0500 Body weight 84.82 kg Smiley Pantojawendileah [facility] Work Phone: 07-27-2017 10:50-0500 BP Diastolic 80 mm[Hg] Smiley Manclarence [employer] [facility] Work Phone: Comment on above: Patient Position: Sitting; Cuff Location : Left Arm; Cuff Size: Standard 07-27-2017 10:50-0500 BP Systolic 120 mm[Hg] Smiley Barragan [facility] Work Phone: Comment on above: Patient Position: Sitting; Cuff Location : Left Arm; Cuff Size: Standard 07-27-2017 10:50-0500 BSA (Body Surface Area) 1.88 m2 Smiley Barragan [facility] Work Phone: 07-27-2017 10:50-0500 Height 160.02 cm Smiley Barragan [facility] Work Phone: 07-27-2017 10:50-0500 Pulse (Heart Rate) 78 /min Smiley Braragan [facility] Work Phone: Comment on above: Pattern: Regular 07-27-2017 10:50-0500 Pulse Oximetry 98 % [facility] Work Phone: Comment on above: Room air 07-27-2017 10:50-0500 Respiratory Rate 16 /min Smiley Barragan [facility] Work Phone: Comment on above: Pattern: Unlabored 07-27-2017 10:50-0500 SaO2% (BldA) [Mass fraction] 98 % Smiley Barragan [facility]; [facility] Work Phone: Comment on above: Room air 07-27-2017 10:50-0500 Weight 84.82 kg Torsten Mitchell [facility] Internal Medicine Work Phone: 07-20-2017 09:04-0500 BMI (Body Mass Index) 33.13 kg/m2 ROSE Suazo LPN [facility] Work Phone: 07-20-2017 09:04-0500 Body Temperature 97.9 [degF] ROSE Suazo LPN [facility] Work Phone: Comment on above: Method: Temporal 07-20-2017 09:04-0500 Body weight 84.82 kg ROSE Suazo LPN [facility] Work Phone: 07-20-2017 09:04-0500 BP Diastolic 86 mm[Hg] ROSE Suazo LPN [facility] Work Phone: Comment on above: Patient Position: Sitting; Cuff Location : Left Arm; Cuff Size: Large 07-20-2017 09:04-0500 BP Systolic 160 mm[Hg] ROSE Suazo LPN [facility] Work Phone: Comment on above: Patient Position: Sitting; Cuff Location : Left Arm; Cuff Size: Large 07-20-2017 09:04-0500 BSA (Body Surface Area) 1.88 m2 ROSE Suazo [place] [facility] Work Phone: 07-20-2017 09:04-0500 Height 160.02 cm ROSE Suazo [place] [facility] Work Phone: 07-20-2017 09:04-0500 Pulse (Heart Rate) 74 /min ROSE Suazo [place] [facility] Work Phone: Comment on above: Pattern: Regular 07-20-2017 09:04-0500 Pulse Oximetry 98 % Torsten Vinayak [facility] Internal Medicine Work Phone: Comment on above: Room air 07-20-2017 09:04-0500 Respiratory Rate 20 /min ROSE Suazo LPN [facility] Work Phone: Comment on above: Pattern: Unlabored 07-20-2017 09:04-0500 SaO2% (BldA) [Mass fraction] 98 % ROSE Suazo [place] [facility]; [facility] Work Phone: Comment on above: Room air 07-20-2017 09:04-0500 Weight 84.82 kg Torsten Grimmlatoya [facility] Internal Medicine Work Phone: 05-07-2017 07:47-0400 BMI (Body Mass Index) 36.31 kg/m2 Paulette Barakat RN [facility] Work Phone: 05-07-2017 07:47-0400 Body weight 92.99 kg Paulette Barakat RN [facility] Work Phone: 05-07-2017 07:47-0400 BP Diastolic 88 mm[Hg] Paulette Barakat RN [facility] Work Phone: Comment on above: Patient Position: Sitting; Cuff Location : Left Arm; Cuff Size: Large 05-07-2017 07:47-0400 BP Systolic 118 mm[Hg] Paulette Barakat RN [facility] Work Phone: Comment on above: Patient Position: Sitting; Cuff Location : Left Arm; Cuff Size: Large 05-07-2017 07:47-0400 BSA (Body Surface Area) 1.95 m2 Paulette Barakat RN [facility] Work Phone: 05-07-2017 07:47-0400 Height 160.02 cm Paulette Barakat RN [facility] Work Phone: 05-07-2017 07:47-0400 Pulse (Heart Rate) 81 /min Paulette Barakat RN [facility] Work Phone: Comment on above: Pattern: Regular 05-07-2017 07:47-0400 Pulse Oximetry 97 % Torsten Mitchell [facility] Internal Medicine Work Phone: Comment on above: Room air 05-07-2017 07:47-0400 Respiratory Rate 18 /min Paulette Barakat RN [facility] Work Phone: Comment on above: Pattern: Unlabored 05-07-2017 07:47-0400 SaO2% (BldA) [Mass fraction] 97 % Paulette Barakat RN [facility]; [facility] Work Phone: Comment on above: Room air 05-07-2017 07:47-0400 Weight 92.99 kg Torsten Vinayak [facility] Work Phone: 09-18-2016 08:22-0500 BMI (Body Mass Index) 34.9 kg/m2 Paulette Barakat RN [facility] Work Phone: 09-18-2016 08:22-0500 Body weight 89.36 kg Paulette Barakat RN [facility] Work Phone: 09-18-2016 08:22-0500 BP Diastolic 84 mm[Hg] Paulette Barakat RN [facility] Work Phone: Comment on above: Patient Position: Sitting; Cuff Location : Left Arm; Cuff Size: Large 09-18-2016 08:22-0500 BP Systolic 122 mm[Hg] Paulette Barakat RN [facility] Work Phone: Comment on above: Patient Position: Sitting; Cuff Location : Left Arm; Cuff Size: Large 09-18-2016 08:22-0500 BSA (Body Surface Area) 1.92 m2 Paulette Barakat RN [facility] Work Phone: 09-18-2016 08:22-0500 Height 160.02 cm Paulette Barakat RN [facility] Work Phone: 09-18-2016 08:22-0500 Pulse (Heart Rate) 85 /min Paulette Barakat RN [facility] Work Phone: Comment on above: Pattern: Regular 09-18-2016 08:22-0500 Pulse Oximetry 98 % Torsten Mitchell [facility] Work Phone: Comment on above: Room air 09-18-2016 08:22-0500 Respiratory Rate 18 /min Paulette Barakat RN [facility] Work Phone: Comment on above: Pattern: Unlabored 09-18-2016 08:22-0500 SaO2% (BldA) [Mass fraction] 98 % Paulette Barakat RN [facility]; [facility] Work Phone: Comment on above: Room air 09-18-2016 08:22-0500 Weight 89.36 kg Torsten Mitchell [facility] Work Phone: 09-04-2015 11:24-0500 BMI (Body Mass Index) 32.95 kg/m2 Liz Aldridge RN [facility] Work Phone: Comment on above: Patient wearing shoes for height and rob ght check 09-04-2015 11:24-0500 Body Temperature 98.5 [degF] Liz Aldridge RN [facility] Work Phone: Comment on above: Method: Temporal Patient wearing shoe s for height and weight check 09-04-2015 11:24-0500 Body weight 84.37 kg Liz Aldridge RN [facility] Work Phone: Comment on above: Patient wearing shoes for height and rob ght check 09-04-2015 11:24-0500 BP Diastolic 70 mm[Hg] Liz Aldridge RN [facility] Work Phone: Comment on above: Patient Position: Sitting; Cuff Location : Left Arm; Cuff Size: Standard Patient wearing shoe s for height and weight check 09-04-2015 11:24-0500 BP Systolic 118 mm[Hg] Liz Aldridge RN [facility] Work Phone: Comment on above: Patient Position: Sitting; Cuff Location : Left Arm; Cuff Size: Standard Patient wearing shoe s for height and weight check 09-04-2015 11:24-0500 BSA (Body Surface Area) 1.88 m2 Liz Aldridge RN [facility] Work Phone: Comment on above: Patient wearing shoes for height and orb ght check 09-04-2015 11:24-0500 Height 160.02 cm Liz Aldridge RN [facility] Work Phone: Comment on above: Patient wearing shoes for height and rob ght check 09-04-2015 11:24-0500 Pulse (Heart Rate) 86 /min Liz Aldridge RN [facility] Work Phone: Comment on above: Pattern: Regular Patient wearing shoe s for height and weight check 09-04-2015 11:24-0500 Pulse Oximetry 98 % Torsten Mitchell [facility] Work Phone: Comment on above: Room air Patient wearing shoe s for height and weight check 09-04-2015 11:24-0500 Respiratory Rate 16 /min Liz Aldridge RN [facility] Work Phone: Comment on above: Pattern: Unlabored Patient wearing shoe s for height and weight check 09-04-2015 11:24-0500 SaO2% (BldA) [Mass fraction] 98 % Liz Aldridge RN [facility]; [facility] Work Phone: Comment on above: Room air Patient wearing shoe s for height and weight check 09-04-2015 11:24-0500 Weight 84.37 kg Torsten Mitchell [facility] Work Phone: Comment on above: Patient wearing shoes for height and rob ght check Encounters Encounter Date Encounter Type Care Provider Facility Start: 07-06-2024 End: 07-06-2024 ambulatory Torsten Ashraf Facility:[facility] Start: 12-23-2023 ambulatory Maik Luis Facility:[facility] Start: 12-23-2023 End: 12-23-2023 ambulatory [facility] Facility:[facility] Start: 12-09-2023 End: 12-10-2023 ambulatory [facility] Start: 12-09-2023 End: 12-09-2023 Subsequent hospital visit by physician [address] Comment on above: Abnormal electrocard iogram (ECG) (EKG) Start: 12-07-2023 End: 12-07-[address] [facility] Work Phone: Start: 12-07-2023 End: 12-07-2023 Patient encounter procedure [facility] Work Phone: Start: 12-07-2023 End: 12-07-2023 ambulatory [facility] Facility:[facility] Start: 06-28-2023 End: 06-28-[address] [facility] Work Phone: Start: 06-28-2023 End: 06-28-2023 Patient encounter procedure [facility] Work Phone: Start: 06-24-2023 End: 06-24-2023 Patient encounter procedure [facility] Work Phone: Start: 04-22-2023 End: 04-22-2023 Office outpatient visit 25 minutes Torsten Mitchell MD Work Phone: [facility] Start: 03-11-2023 End: 03-11-2023 Office outpatient visit 25 minutes Torsten Mitchell MD Work Phone: [facility] Start: 11-20-2022 ambulatory Torsten Mitchell MD Com[facility] Med Start: 06-12-2022 End: 06-12-2022 Patient encounter procedure Torsten Mitchell MD Work Phone: [facility] Comment on above: 03-08-20 [facility] exam: mammogram=02-02-20 HPV/Pap=10-22-2017, MOCA , cognivue 92 Covid IGG negative Start: 06-12-2022 End: 06-12-2022 Physical examination Torsten Mitchell MD Work Phone: [facility]; [facility] Work Phone: Comment on above: 06-06[facility]vip Pap smear 3- HPV neg and PAP on OCP right now and no contraindication. colonscopy due 51 yo. mammagram 03-06 (in past nodule and Dr nichelle david) Tdap 2017 see derm regularly Start: 04-05-2022 End: 04-05-2022 Lab Order Torsten Mitchell MD Work Phone: [facility] Start: 04-02-2022 End: 04-16-2022 Office outpatient visit 10 minutes Torsten Mitchell MD Work Phone: [facility] Start: 03-27-2022 End: 03-27-2022 Annotation/Addendum Torsten Mitchell MD Work Phone: [facility] Start: 08-01-2021 End: 08-10-2021 Office outpatient visit 25 minutes Torsten Mitchell MD Work Phone: [facility] Start: 07-14-2021 End: 07-14-2021 Phone Encounter Torsten Mitchell MD Work Phone: [facility] Start: 05-23-2021 End: 11-13-2021 Office outpatient visit 15 minutes Torsten Mitchell MD Work Phone: [facility] Start: 05-23-2021 End: 11-13-2021 Physical examination Torsten Mitchell MD Work Phone: [facility]; [facility] Work Phone: Comment on above: mdvip 6-19 Pap smear 3-18 HPV neg and PAP on OCP right now and no contraindication. colonscopy due 51 yo. mammagram 3-19 (in past nodule and Dr nichelle david) Tdap 2017 see derm regularly Start: 05-23-2021 Review Torsten Bray Work Phone: [facility] Start: 04-25-2021 End: 04-25-2021 Lab Order Torsten Mitchell MD Work Phone: [facility] Start: 03-25-2021 End: 03-26-2021 Office outpatient visit 25 minutes Torsten Mitchell MD Work Phone: [facility] Start: 03-18-2021 End: 03-18-2021 Phone Encounter Torsten Mitchell MD Work Phone: [facility] Start: 2021 End: 2021 Annotation/Addendum Torsten Mitchell MD Work Phone: [facility] Start: 02-04-2021 End: 02-04-2021 Annotation/Addendum Torsten Mitchell MD Work Phone: [facility] Start: 03-08-2020 End: 03-11-2020 Patient encounter procedure Torsten Mitchell MD Work Phone: [facility] Start: 03-08-2020 End: 03-11-2020 Periodic preventive med est patient 40-64yrs Torsten Mitchell [facility] Start: 01-24-2020 End: 01-30-2020 Office outpatient visit 15 minutes Torsten Mitchell [facility] Start: 12-15-2019 End: 12-15-2019 Lab Order Torsten Mitchell [facility] Start: 12-15-2019 End: 12-15-2019 Patient encounter status Torsten Mitchell MD Work Phone: [facility] Start: 07-28-2019 End: 07-28-2019 Office outpatient visit 25 minutes Torsten Mitchell [facility] Start: 06-27-2019 End: 06-27-2019 Periodic preventive med est patient 18-39 yrs Torsten Mitchell [facility] Start: 01-20-2019 End: 01-20-2019 Manual pelvic examination Torsten Mitchell MD Work Phone: [facility]; [facility] Work Phone: Comment on above: Pap smear in 08/29/19 13 was within normal limits. HPV DNA was negative. Patient has had regular Pap smears for the last 20 years and they have been normal. She had an abnormal reading on one of her Pap smears before her first child was born and repeat was within normal limits. Repeat Pap smear with HPV DNA in August 2017. Start: 01-20-2019 End: 01-20-2019 Office outpatient visit 15 minutes Torsten Mitchell [facility] Start: 01-20-2019 End: 01-20-2019 Physical examination Torsten Mitchell MD Work Phone: [facility] Start: 01-20-2019 Review Torsten Mitchell [facility] Start: 01-12-2019 End: 01-12-2019 Office outpatient visit 40 minutes Torsten Mitchell [facility] Start: 10-18-2018 End: 10-18-2018 Lab Order Torsten Mitchell [facility] Start: 09-05-2018 End: 09-05-2018 Phone Encounter Torsten De Oliveira [facility] Start: 10-22-2017 End: 10-28-2017 Manual pelvic examination Torsten Mitchell MD Work Phone: [facility] Start: 10-22-2017 End: 10-28-2017 Office outpatient visit 40 minutes Torsten De Oliveira [facility] Start: 10-22-2017 End: 10-28-2017 Patient encounter procedure Torsten Mitchell MD Work Phone: [facility] Start: 10-15-2017 End: 10-15-2017 Phone Encounter Torsten Mitchell [facility] Start: 07-27-2017 End: 07-27-2017 Periodic preventive med est patient 18-39 yrs Torsten De Oliveira [facility] Start: 07-20-2017 End: 07-20-2017 Office outpatient visit 25 minutes Torsten Mitchell [facility] Start: 05-07-2017 End: 05-07-2017 Office outpatient visit 15 minutes Torsten Micthell [facility] Start: 10-01-2016 End: 10-01-2016 Phone Encounter Torsten Mitchell [facility] Start: 09-18-2016 End: 09-18-2016 Periodic preventive med est patient 40-64yrs Torsten Mitchell [facility] Start: 09-18-2016 End: 09-18-2016 Physical examination Paulette Barakat RN [facility]; [facility] Work Phone: Comment on above: EKG normal sinus rhy thm.Rate 65, no acute ST-T wave changes.No hypertrophy Start: 12-27-2015 End: 12-27-2015 Lab Order Torsten Mitchell [facility] Start: 09-04-2015 End: 09-04-2015 Manual pelvic examination Torsten Mitchell MD Work Phone: [facility] Start: 09-04-2015 End: 09-04-2015 Patient encounter procedure Torsten Mitchell [facility] Start: 09-04-2015 End: 09-04-2015 Physical examination Torsten Mitchell MD Work Phone: [facility] Patient encounter procedure Torsten Mitchell MD Work Phone: [facility]; [facility] Work Phone: Comment on above: 03-08-20 [facility] [place] exam: mammogram=6-20 HPV/Pap=10-22-2017, MOCA 28/, cognivue 92 Covid IGG negative Patient encounter procedure Tammy Barragan [facility]; [facility] Work Phone: Comment on above: 03-08-20 [facility] [facility] exam: mammogram=619-20 HPV/Pap=10-22-2017, MOCA 28/30, cognivue 92 Covid IGG negative Patient encounter procedure Bryant bray [facility]; [facility] Work Phone: Comment on above: 03-08-20 [facility] [place] [facility] exam: mammogram=619-20 HPV/Pap=10-22-2017, MOCA 28/30, cognivue 92 Covid IGG negative Patient encounter status ROSE Suazo L PN [facility]; [facility] Work Phone: End: 03-18-2021 Patient encounter status ROSE Suazo NEURODIAGNOSTIC TECH [facility]; [facility] Work Phone: Physical examination ROSE Suazo NEURODIAGNOSTIC TECH [facility] Internal [facility]; [facility] Work Phone: Comment on above: mdvip 6-19 Pap smear 3-18 HPV neg and PAP on OCP right now and no contraindication. colonscopy due 51 yo. mammagram 3-19 (in past nodule and Dr nichelle david) Tdap 2017 see derm regularly Physical examination Bryant Lyudmila ABRAHAM C [facility] Internal [facility]; [facility] Work Phone: Comment on above: mdvip 6-19 Pap smear 3-18 HPV neg and PAP on OCP right now and no contraindication. colonscopy due 51 yo. mammagram 3-19 (in past nodule and Dr nichelle david) Tdap 2016 see derm regularly Physical examination Hanna Peña MA [facility] Medicine; [facility] Work Phone: Comment on above: 10-22mdvip Pap smear 3-18 HPV neg and PAP on OCP right now and no contraindication. colonscopy due 51 yo. mammagram 7-22 (in past nodule and Dr nichelle david) Tdap 2016 see derm regularly Physical examination Yanira Justine JASMINE [facility]; [facility] Work Phone: Comment on above: 10-22mdvip Pap smear 3-18 HPV neg and PAP on OCP right now and no contraindication. colonscopy due 51 yo. mammagram 7-22 (in past nodule and Dr steward clear) Tdap 2017 see derm regularly Procedures Date Procedure Procedure Detail Performing Clinician Start: 12-09-2023 CT CARDIAC SCORING W O IV CONTRAST TORSTEN MITCHELL Start: 12-07-2023 Computed tomography of abdomen and pelvis with contrast Start: 06-28-2023 Ultrasonography of breast Start: 06-24-2023 Screening mammography Start: 04-23-2022 End: 04-23-2022 SCRN MAMM (CAD)W/NERY BILAT Procedure Note: See Note; NOTES: [facility] Imaging Services [address] [place] [address] SCRN MAMM (CAD)W/NERY BILAT MR#: [id number] Acct: [id number] Name: SHAYY JACKMAN Rep #: [id number] : 1970 F 52 From: Alexander mendez MD PCP: Dr. Torsten Mitchell MD Status: [facility] Study: SCRN MAMM (CAD)W/NERY BILAT Date of Exam: 04/06 Exam# [id number] Ordering Dr: Torsten Mitchell MD MAMMOGRAPHY - BILATERAL SCREENING REASON FOR EXAM: Female, 52 years old. Routine annual screening examination. PERTINENT HISTORY: Non-contributory. TECHNIQUE: Digital bilateral breast nery (3D mammographic acquisition) in the CC and MLO projections. 2-D mediolateral oblique (MLO) and craniocaudad (CC) views of both breasts were obtained. CAD: Full Field Digital Mammography with Computer Added Detection was performed. COMPARISON: Comparison is made with prior study dated 02/26/2021 and 02/02/2020. FINDINGS: Breast Composition: The breasts are heterogeneously dense, which may obscure small masses. There are no dominant masses or suspicious calcifications. Stable small benign-appearing bilateral axillary lymph nodes. No other significant abnormalities are identified. There has been no significant change since the prior study. BI/SCRN MAMM (CAD)W/NERY BILAT IMPRESSION: Stable bilateral screening mammogram. Yearly follow-up mammogram recommended. (A) ASSESSMENT CATEGORY: BIRADS Category 2: Benign. A letter regarding these results will be sent to the patient by the facility within 30 days. Approximately 10% of breast cancers are not detected by mammography. A normal mammogram should not delay biopsy of a clinically suspicious abnormality. [id number] Electronically Signed: Alexander Lind MD at 9:18 EDT , CC: Dr. Torsten Mitchell MD Inspection And Testing Supervisor: Signed Torsten Mitchell MD Work Phone: Start: 08-23-2021 End: 08-23-2021 Lower Ext Joint Only (Routine) Comments: See Note; NOTES: [facility] Imaging Services [address] [place] [address] Lower Ext Joint Only (Routine) MR#: [id number] Acct: [id number] Name: SHAYY JACKMAN Rep #: [id number] : 1970 F 51 From: Gonzalo barlow MD PCP: Dr. Torsten Mitchell MD Status: REG CLI Study: Lower Ext Joint Only (Routine) Date of Exam: 0 08/23/21 Exam# [id number] Ordering Dr: Torsten Mitchell MD STUDY: MRI RIGHT KNEE REASON FOR EXAM: Female, 51 years old. RT KNEE PAIN, medial, anterior TECHNIQUE: Standardized fat and water weighted pulse sequences were obtained in all 3 orthogonal planes. COMPARISON: None. FINDINGS: Mild radial tearing is present at the free edge of the body of the medial meniscus. Diffuse thinning and irregularity of the meniscal tissue noted in the central one third aspect of the posterior horn of the medial meniscus, but no focal tear is seen. There is diffuse, greater than 50% thickness articular cartilage loss of the medial femorotibial compartment. Normal medial femoral condyle and tibial plateau. Normal medial collateral ligamentous complex (MCL). Normal distal semimembranosus, gracilis and semitendinosus tendons. Normal lateral meniscus. Normal hyaline cartilage of the lateral femorotibial compartment. Normal lateral femoral condyle and tibial plateau. Normal proximal tibiofibular articulation. Normal lateral collateral (fibular) ligament. Normal popliteus tendon. Normal biceps femoris tendon. Normal anterior cruciate ligament (ACL). Normal posterior cruciate ligament (PCL). Normal congruent patellofemoral articulation. Normal hyaline cartilage of the patellofemoral compartment. Normal medial and lateral patellar retinaculum. Normal quadriceps tendon. Normal patellar tendon. Normal Hoffa''s fat pad. Small joint effusion noted. The soft tissues are unremarkable. The otherwise visualized osseous structures are unremarkable. MRI/Lower Ext Joint Only (Routine) IMPRESSION: 1. Mild radial tearing is present at the free edge of the body of the medial meniscus. Diffuse thinning and irregularity of the meniscal tissue noted in the central one third aspect of the posterior horn of the medial meniscus, but no focal tear is seen. Electronically Signed: Gonzalo Adams MD at 19:57 EST , Service support , CC: Dr. Torsten Mitchell MD; Dr. Lamont Mancera MD Inspection And Testing Supervisor: Signed Torsten Mitchell MD Work Phone: Start: 05-30-2021 End: 06-11-2021 Inital Evaluation (1) - PT Comments: See Note; NOTES: [facility] Physical Therapy [facility] [address] [place] [address] [address] [place] [address] / REHABILITATION SERVICES INITIAL EVALUATION MR#: [id number] Acct: [id number] Name: SHAYY JACKMAN Rep #: [id number] : 1970 51 From: Rahat Menendez PT, ATC Referring Dr.: Dr. Torsten Mitchell MD Status: REG RCR Insurance: [facility] SELF PAY INSURANCE Patient's Visit Information SHAYY JACKMAN is a 51 year old F referred to Physical Therapy by Dr. Torsten Mitchell MD with a diagnosis of B knee pain. Date of Evaluation: 05/30/21 Physical Therapist: Rahat Menendez, PT, ATC - Visit Plan Frequency: 2-3x /Week Duration: 4-6 Weeks Plan: B LE stretching and strengthening, core stab, balance and proprio, bike, and HEP - Subjective Pt reports she has had B knee pain for several months. Pt notes she first started working out when she began to experience L knee pain. Pt notes a couple of months later her R knee began to hurt. Pt reports she has had 2 x-rays, which revealed a little bit of OA, but nothing significant. Pt reports no significant injury or trauma to her knees. Pt reports sleep difficulty secondary to B knee pain. Pt denies tingling or numbness in her knees. pt reports she is very active as she has a arreola house and enjoys yard work, and is limited at times secondary to pain. Pt notes her knees don't lock up or give out, but she notes they do pop and crack at times. Pt reports if she rests for a long period of time, she has no pain. But the moment she walks for a while, such as going to the grocery store, she begins to experience pain. pt notes when she kneels, she feels like she is kneeling on a balloon. Pt reports all of her pain is located ont he medial and peripatellar regions of B knees. 0/10 pain at rest, 6/10 pain at worst. - Pain B knee pain Pain Intensity (Out of 10): 0 Pain Intensity Range: 6 - Objective Neuro: B LE sensation is WNL to light touch. B achilles reflex= 2/3. Palpation: Pt is very sore along the medial aspect of B knees. Pt is also very sore on the medial aspect of B patella. No obvious deformity. No crepitus with AROM. ROM: L knee 0-15-97, R knee 0-18-97. MMT: B knee flexion 4/5. R knee ext 4-/5. L knee ext 5/5. Girth at joint line: 43 cm B. Special tests: Positive mcconnels sign indicating patello-femoral syndrome - Balance/Special Test Scores Lower Extremity Functional Score: 47 - Goals Goal 1:: Decrease B knee pain x 50% to aid with sleep Goal Time Frame: 4-6 Weeks Goal 2:: Increase B LE flexibility x 1 grade to aid with decreasing pain Goal Time Frame: 4-6 Weeks Goal 3:: Increase B LE strength x 1 grade to aid with stair negotiation Goal Time Frame: 4-6 Weeks Goal 4:: I with HEP Goal Time Frame: 4-6 Weeks - Rehabilitation Potential Physical Therapy Diagnosis: Pt has B knee pain, limited flexibility, and limited ROM secondary to patello-femoral syndrome Rehabilitation Potential: Good - Anticipated Interventions Patient/Client Instruction: Educate patient on: Condition, Plan of Care For the Purpose of:: To improve self management Therapeutic Exercise to Include: Strength training, Endurance training, Balance training, Flexibilty training, Dynamic Lumbar Stabilization For the Purpose of:: To decrease pain, To increase ROM, To improve muscle performance and motor function Cryotherapy (ice pack, ice massage): Yes For the Purpose of:: To decrease pain Thank you for the opportunity to evaluate your patient. For Medicare and Medicare HMO plans, please review the plan of care and approve it. It will need to be FAXED BACK to us at [phone] for Medicare purposes. For Medicare only, by signing this I certify the plan of care. Please let me know if there are questions or concerns regarding this plan of care. Physician Signature: Date: ____ <Electronically signed by Rahat Menendez PT, ATC> 05/30/21 0845 CC: Dr. Torsten Mitchell MD [facility] Signed Torsten Mitchell MD Work Phone: Start: 02-26-2021 End: 02-26-2021 SCRN MAMM (CAD)W/NERY BILAT Comments: See Note; NOTES: [facility] Imaging Services [address] [place] [address] SCRN MAMM (CAD)W/NERY FELYAT MR#: [id number] Acct: [id number] Name: SHAYY JACKMAN Rep #: [id number] : 1970 F 51 From: Alexander mendez MD PCP: Dr. Torsten Mitchell MD Status: REG [facility] Study: SCRN MAMM (CAD)W/NERY BILAT Date of Exam: 02/13 12/04 Exam# [id number] Ordering Dr: Torsten Mitchell MD MAMMOGRAPHY - BILATERAL SCREENING REASON FOR EXAM: Female, 51 years old. Routine annual screening examination. PERTINENT HISTORY: Non-contributory. TECHNIQUE: Digital bilateral breast nery (3D mammographic acquisition) in the CC and MLO projections. 2-D mediolateral oblique (MLO) and craniocaudad (CC) views of both breasts were obtained. CAD: Full Field Digital Mammography with Computer Added Detection was performed. COMPARISON: Comparison is made with prior study dated 02/02/2020 and 11/05/2018. FINDINGS: Breast Composition: The breasts are heterogeneously dense, which may obscure small masses. There are no dominant masses or suspicious calcifications. Stable benign-appearing bilateral axillary lymph nodes. No other significant abnormalities are identified. There has been no significant change since the prior study. BI/SCRN MAMM (CAD)W/NERY BILAT IMPRESSION: Stable bilateral screening mammogram. Yearly follow-up mammogram recommended. (A) ASSESSMENT CATEGORY: BIRADS Category 2: Benign. A letter regarding these results will be sent to the patient by the facility within 30 days. Approximately 10% of breast cancers are not detected by mammography. A normal mammogram should not delay biopsy of a clinically suspicious abnormality. [id number] Electronically Signed: Alexander Lind MD at 8:41 EDT , Service support , CC: Dr. Torsten Mitchell MD Inspection And Testing Supervisor: Signed Torsten Mitchell MD Work Phone: Start: 03-15-2020 End: 03-15-2020 TXT - Blood Flow Screening Comments: See Note; NOTES: [facility] [place] [address] 03/15/20 0802 MR#: [id number] Acct: [id number] Name: SHAYY JACKMAN Rep #: [id number] : 1970 50 From: Duong Jacome MD Attending Dr: Dr. Torsten Mitchell MD Status: REG REF Ordering Dr: Date: 03/15/20 Location: [facility] Sex: F C Admitted: Reason For Study: Screening Carotid Duplex Ultrasound Abdominal Aorta The right maximum ICA velocity is 81.6/30 cm/s. The maximal outside diameter of the proximal aorta The right ECA velocity is less than 125 cm/s. measures 1.69 x 1.67 cm in the cross-sectional There is no plaque formation noted on the right axis. side. The maximal outside diameter of the proximal aorta The left maximum ICA velocity is 99.8/40.9 cm/s. measures 1.66 cm in the longitudinal axis. The left ECA velocity is less than 125 cm/s. There is no plaque formation noted on the left side. Ankle Brachial Index The right ankle/ brachial index is 1.12. The left ankle/ brachial index is 1.14. Medical History and Assessment The heart rate is 66 beats per minute. The heart rhythm is regular. The right blood pressure is 148/84. The left blood pressure is 146/92. The assessment was performed by Melissa Metcalf RVT. Interpretation Summary Normal carotid artery screening (0 to 15% narrowing). Normal aortic ultrasound exam. The ankle/brachial index is normal (1.0 or greater). ____ _ Ordering Physician: Torsten Mitchell M.D. Performed By: Lyudmila Metcalf, RVT 03/15/20917 Date Duong Jacome MD CC: Dr. Torsten Mitchell MD Date Dictated: 03/15/20801 Date Transcribed: 03/15/20917 Inspection And Testing Supervisor: Signed Torsten Mitchell Start: 02-02-2020 End: 02-02-2020 SCREEN MAMM (CAD) W/NERY BILAT Comments: See Note; NOTES: [facility] [address] [place] [id number] SCREEN MAMM (CAD) W/NERY BILAT MR#: [id number] Acct: [id number] Name: SHAYY JACKMAN Rep #: [id number] : 1970 F 49 From: Alexander mendez MD PCP: Dr. Torsten Mitchell MD Status: REG [facility] Study: SCREEN MAMM (CAD) W/NERY BILAT Date of Exam: 0 02/02/20 Exam# [id number] Ordering Dr: Torsten Mitchell MD MAMMOGRAPHY - BILATERAL SCREENING REASON FOR EXAM: Female, 49 years old. Routine annual screening examination. PERTINENT HISTORY: Non-contributory. TECHNIQUE: Digital bilateral breast nery (3D mammographic acquisition) in the CC and MLO projections. 2-D mediolateral oblique (MLO) and craniocaudad (CC) views of both breasts were obtained. CAD: Full Field Digital Mammography with Computer Added Detection was performed. COMPARISON: Comparison is made with prior examination dated November 05, 2018 and October 08, 2017. FINDINGS: Breast Composition: The breasts are heterogeneously dense, which may obscure small masses. There are no dominant masses or suspicious calcifications. No other significant abnormalities are identified. There has been no significant change since the prior study. BI/SCREEN MAMM (CAD) W/NERY BILAT IMPRESSION: Stable bilateral screening mammogram. Yearly follow-up mammogram recommended. (A) ASSESSMENT CATEGORY: BIRADS Category 1: Negative. A letter regarding these results will be sent to the patient by the facility within 30 days. Approximately 10% of breast cancers are not detected by mammography. A normal mammogram should not delay biopsy of a clinically suspicious abnormality. [id number] Electronically Signed: Alexander Diogo, at 8:58 EDT , Service support , CC: Dr. 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: No Is patient in pain?: No Allergies No Known Allergies Allergy (Verified 10/20/17 13:56) Medications cholecalciferol (vitamin D3) 5,000 unit capsule 5,000 unit PO ONCE 10/20/17 [History Confirmed 10/20/17] [facility] Medical History Difficulty swallowing (Acute) Abnormal mammogram of right breast (Acute) Surgical History History of breast surgery (Acute) Family History Mother Hypertension Father Hypertension Heart disease Social History Smoking Status: Never smoker second hand exposure: No alcohol intake: current alcohol intake frequency: a few times a month Alcohol type: wine substance use type: does not use caffeine: Yes what type of physical activity do you participate in: none frequency: does not exercise seatbelt use: always HPI HPI HPI: SHAYY JACKMAN, is a 47 F who presents to the office today for abnormal mammogram and ultrasound. Patient had her mammograms and ultrasound done at [facility] on 10/13/2017. These showed 2 small cysts seen in the retroareolar region of the right breast. The largest measured 1.2 x 0.9 x 1.5 cm and corresponded to the mammographic findings. Mild dilatation of the ducts were noted there were no masses in the ducts identified. The patient is not experiencing any breast discharge at this time. ROS General General: Yes weight change (loss, intentional ); no appetite, fatigue, colon cancer, breast cancer or weakness HEENT HEENT: Yes difficulty swallowing; no eye injury, eye surgery, swollen glands or hoarseness Endo Endocrine: No thyroid disease, diabetes mellitus, thyroid cancer, Hair loss, heat intolerance or cold intolerance Skin Skin: No rash or changing moles Breast Breast: Yes right breast lump, abnormal mammogram and abnormal US; no left breast lump, nipple discharge, breast pain or breast enlargement Musc Musculoskeletal: No back problems, arthritis, rheumatoid arthritis, gout or joint pain Cardio Cardiovascular: No murmur, pacemaker, heart disease, atrial fibrillation, high blood pressure, heart attack, heart stent, palpitations, shortness of breat with exertion or chest pain Psych Psychiatric: No depression, anxiety or hearing voices Resp Respiratory: No shortness of breath, No sleep apnea, Yes cough, No COPD, No asthma, No emphysema, No wheezing Gastro Gastrointestinal: No abdominal pain, No nausea or vomiting, No diarrhea, No constipation, No blood in stool, No acid reflux, No hemorrhoids, No ulcers, No gallbladder problem, No black,tarry stools Zack Hematologic: No blood thinners, No blood disorders, No bleeding, No anemia, No blood clots Neuro Neurologic: No system reviewed and no additional complaints, except as docu, No as per HPI, No abnormal walking, No abnormal hearing, No abnormal movements, No abnormal speech, No behavioral changes, No burning sensations, No confusion, No seizure-like activity, No unsteadiness, No dizziness, No localized weakness, No frequent falls, No headache(s), No lack of coordination, No loss of vision, No memory loss, No numbness, No other visual disturbances, No radiating pain, No restless legs, No sensory deficit, No fainting, No tingling, No tremor(s), No weakness, No other Exam HENMT Head: normal to inspection, normocephalic, atraumatic Mouth: moist mucous membranes, oropharynx normal Eyes General: appearance normal, both eyes and all related structures Sclera: sclerae normal Neck Neck: no lymphadenopathy noted, trachea midline Neck mass: No Thyroid: thyroid normal Lymphatic: no lymphadenopathy noted Chest Breast inspection: normal inspection of the breasts Breast Palpation: No nipple discharge Resp Other: Respiratory Exam: Deferred Cardio Heart Sounds: no murmurs Other: Cardiac Exam: Deferred GI Other: GI Exam: Deferred Other: Rectal Exam: Deferred Extrem Other: Extremity Exam: Deferred Assessment AND Plan Problems 1. Cyst of right breast N60.01 Plan No surgical intervention is needed at this time. The patient is to continue her self breast exams. She feels an abnormality she is to call my office immediately if she develops nipple discharge she is to contact my office immediately. I would like for her to continue her normal routine mammograms. Coding Level of Care Code Off vis,new,level 3 Diagnoses Cyst of right breast N60.01 Laterality: right 10/24/17 1703 <Electronically signed by Layton Farrell MD> Date Layton Farrell MD Cosigner Signature: Date (if applicable) CC: Torsten Mitchell Start: 10-13-2017 End: 10-13-2017 Breast Limited Unilateral Comments: See Note; NOTES: [facility] [address] [place] [address] Breast Limited Unilateral MR#: [id number] Acct: [id number] Name: SHAYY JACKMAN Rep #: [id number] : 1970 F 47 From: Alexander Lind MD PCP: Torsten Mitchell MD Status: REG CLI Study: Breast Limited Unilateral Date of Exam: 10/13/17 Exam# [id number] Ordering Dr: Torsten Mitchell MD STUDY: ULTRASOUND BREAST - RIGHT REASON FOR EXAM: Female, 47 years old. Abnormal screening mammogram. TECHNIQUE: Axial and longitudinal images of the RIGHT breast were performed with a high resolution ultrasound transducer. COMPARISON: Comparison is made with prior mammogram dated October 08, 2017. FINDINGS: RIGHT Breast: 2 small cysts are seen in the retroareolar region of the breast. The larger measures 1.2 cm x 0.9 cm x 0.5 cm. This corresponds to the mammographic findings. Incidental note is made of mildly dilated retroareolar ducts. US/Breast Limited Unilateral IMPRESSION: The mammographic abnormality corresponds to a 2 small retroareolar cysts. Routine mammographic follow-up is recommended. ASSESSMENT CATEGORY: BIRADS Category 2: Benign. A letter regarding these results will be sent to the patient by the facility within 30 days. Electronically Signed: Alexandre Lind MD at 13:12 EST Tel [phone], Service support , CC: Torsten Mitchell MD Inspection And Testing Supervisor: Signed Torsten Mitchell Work Phone: Start: 10-08-2017 End: 10-08-2017 SCREENING MAMM (CAD), BILAT Comments: See Note; NOTES: [facility] [address] [place] [address] SCREENING MAMM (CAD), BILAT MR#: [id number] Acct: [id number] Name: SHAYY JACKMAN Rep #: [id number] : 1970 F 47 From: Alexander Lind MD PCP: Torsten Mitchell MD Status: REG CLI Study: SCREENING MAMM (CAD), BILAT Date of Exam: 10/08/17 Exam# [id number] Ordering Dr: Torsten Mitchell MD MAMMOGRAPHY - BILATERAL SCREENING REASON FOR EXAM: Female, 47 years old. Routine annual screening examination. PERTINENT HISTORY: Non-contributory. TECHNIQUE: Digital bilateral breast nery (3D mammographic acquisition) in the CC and MLO projections. 2-D mediolateral oblique (MLO) and craniocaudad (CC) views of both breasts were obtained. CAD: Full Field Digital Mammography with Computer Added Detection was performed. COMPARISON: Comparison is made with prior study dated October 07, 2016 and October 04, 2015. FINDINGS: Breast Composition: The breasts are heterogeneously dense, which may obscure small masses. There now is evidence of a 1 cm x 1 cm well-defined nodule in the medial retroareolar region of the right breast. Correlation with ultrasound is recommended. No other significant abnormalities are identified. There has been no significant change since the prior study. HPBI/SCREENING MAMM (CAD), BILAT IMPRESSION: 1 cm x 1 cm well-defined nodule in the medial retroareolar region of the right breast as described. Correlation with ultrasound is recommended. ASSESSMENT CATEGORY: BIRADS Category 0: Incomplete. Need additional imaging evaluation. A letter regarding these results will be sent to the patient by the facility within 30 days. Approximately 10% of breast cancers are not detected by mammography. A normal mammogram should not delay biopsy of a clinically suspicious abnormality. [id number] Electronically Signed: Alexander Lind MD at 10:09 EST Tel [phone], Service support , CC: Torsten Mitchell MD Inspection And Testing Supervisor: Signed Torsten Mitchell Work Phone: Start: 07-20-2017 End: 07-20-2017 Hip 2-3 Views with Pelvis Comments: See Note; NOTES: [facility] [address] [place] [address] Hip 2-3 Views with Pelvis MR#: [id number] Acct: [id number] Name: SHAYY JACKMAN Rep #: [id number] : 1970 F 47 From: Crescencio Naranjo DO PCP: Denise Ayala DO Status: REG CLI Study: Hip 2-3 Views with Pelvis Date of Exam: 07/20/17 Exam# [id number] Ordering Dr: Torsten Mitchell MD STUDY: X-RAY - PELVIS AND LEFT HIP REASON FOR EXAM: Female, 47 years old. Left hip pain. TECHNIQUE: Radiological exam, hip, unilateral, with pelvis when performed; 2 or 3 views. COMPARISON: None. FINDINGS: There is a non-specific bowel gas pattern. Normal visualized soft tissue structures. There is irregular calcification within the pelvis thought to represent calcified uterine fibroid. Normal bilateral iliac wings, sacroiliac joints and visualized sacrum. Normal bilateral superior and inferior pubic rami. Normal pubic symphysis. Normal bilateral ischial tuberosities. Normal right hip. Normal visualized left femoral head. Normal left acetabulum. Normal left hip joint. RAD/Hip 2-3 Views with Pelvis IMPRESSION: Normal x-ray examination of the pelvis and left hip. Electronically Signed: Crescencio NaranjoDO at 21:13 EST Tel [phone], Service support , CC: Torsten Mitchell MD; Denise Ayala DO Inspection And Testing Supervisor: Signed Torsten Mitchell Work Phone: Start: 10-07-2016 End: 10-07-2016 SCREENING MAMM (CAD), BILAT Comments: See Note; NOTES: [facility] [address] [place] [address] Verdana 4d SCREENING MAMM (CAD), BILAT MR#: [id number] Acct: [id number] Name: SHAYY JACKMAN Rep #: [id number] : 1970 F 46 From: Alexander Lind MD PCP: Denise Ayala DO Status: [facility] CLI Study: SCREENING MAMM (CAD), BILAT Date of Exam: 10/07/16 Exam# [id number] Ordering Dr: Denise Ayala DO MAMMOGRAPHY - BILATERAL SCREENING REASON FOR EXAM: Female, 46 years old. Routine annual screening examination. PERTINENT HISTORY: Non-contributory. TECHNIQUE: Digital bilateral breast nery (3D mammographic acquisition) in the CC and MLO projections. 2-D mediolateral oblique (MLO) and craniocaudad (CC) views of both breasts were obtained. CAD: Full Field Digital Mammography with Computer Added Detection was performed. COMPARISON: Comparison is made with prior study dated October 04, 2015. FINDINGS: Breast Composition: The breasts are heterogeneously dense, which may obscure small masses. There are no dominant masses or suspicious calcifications. No other significant abnormalities are identified. There has been no significant change since the prior study. HPBI/SCREENING MAMM (CAD), BILAT IMPRESSION: Stable bilateral screening mammogram. Yearly follow-up mammogram recommended. (A) ASSESSMENT CATEGORY: BIRADS Category 1: Negative. A letter regarding these results will be sent to the patient by the facility within 30 days. Approximately 10% of breast cancers are not detected by mammography. A normal mammogram should not delay biopsy of a clinically suspicious abnormality. [id number] Electronically Signed: Alexander Lind MD at 15:20 EST Tel [phone], Service support [phone], CC: Denise Ayala DO Inspection And Testing Supervisor: Signed Denise Ayala Work Phone: Start: 10-04-2015 End: 10-04-2015 Bilat Scrn Digital AND CAD Comments: See Note; NOTES: [facility] [address] [place] [address] Verdana 4d Bilat Scrn Digital AND CAD MR#: [id number] Acct: [id number] Name: SHAYY JACKMAN Rep #: [id number] : 1970 F 45 From: Alexander Lind MD PCP: Master Ascencio Status: REG CLI Study: Bilat Scrn Digital AND CAD Date of Exam: 10/04/15 Exam# [id number] Ordering Dr: Master Ascencio MAMMOGRAPHY - BILATERAL SCREENING REASON FOR EXAM: Female, 45 years old. Routine annual screening examination. PERTINENT HISTORY: Non-contributory. TECHNIQUE: Digital examination. Mediolateral oblique (MLO) and craniocaudad (CC) views of both breasts were obtained. CAD: CAD was performed on this study. COMPARISON: Comparison is made with prior outside examination dated October 03, 2014 and September 30, 2013. FINDINGS: Breast Composition: The breasts are heterogeneously dense, which may obscure small masses. There are no dominant masses or suspicious calcifications. No other significant abnormalities are identified. There has been no significant change since the prior study. IMPRESSION: Stable bilateral screening mammogram. Yearly follow-up mammogram recommended. (A) ASSESSMENT CATEGORY: BIRADS Category 1: Negative. A letter regarding these results will be sent to the patient by the facility within 30 days. Approximately 10% of breast cancers are not detected by mammography. A normal mammogram should not delay biopsy of a clinically suspicious abnormality. [id number] Electronically Signed: Alexander Lind MD at 8:57 EST Tel [phone], Service support [phone], CC: Master Ascencio Inspection And Testing Supervisor: Signed Master Ascencio Work Phone: Start: 09-04-2015 End: 09-04-2015 Chest PA and Lateral Comments: See Note; NOTES: [facility] [address] [place] [address] [place] 4d Chest PA and Lateral MR#: [id number] Acct: [id number] Name: SHAYY JACKMAN Rep #: [id number] : 1970 F 45 From: Alexander Lind MD PCP: Master Ascencio Status: REG CLI Study: Chest PA and Lateral Date of Exam: 09/04/15 Exam# [id number] Ordering Dr: Master Ascencio STUDY: X-RAY CHEST REASON FOR EXAM: Female, 45 years old. Cough and fatigue. TECHNIQUE: PA and lateral views of the chest. COMPARISON: None. FINDINGS: The lungs are clear and expanded. There is no demonstrated pleural abnormality. Normal size heart. Normal mediastinum and greg. Normal visualized pulmonary arteries. Normal visualized aortic arch and descending thoracic aorta. Normal visualized thoracic spine. Normal visualized ribs, clavicles, and shoulders. There is no demonstrated abnormality of the visualized soft tissue structures of the upper abdomen. IMPRESSION: Normal x-ray examination of the chest. Electronically Signed: Alexander Lind MD at 13:58 EST Tel [phone], Service support [phone], RAD/Chest PA and Lateral IMPRESSION: Normal x-ray examination of the chest. Electronically Signed: Alexander Lind MD at 13:58 EST Tel [phone], Service support [phone], CC: Master Ascencio Inspection And Testing Supervisor: Signed Master Sonu Work Phone: Start: 09-04-2015 End: 09-04-2015 Ecg routine ecg w/least 12 lds w/i&r [MEASUREMENTS ANALYSIS] Date of Test: 09/04/2015 12:25:05; Heart Rate: 65; MS Interval: 150; QRS: 98; QT Interval: 374; Corrected QT Interval (QTc): 382; P [place]: 69; QRS [place]: 33; T [place]: 37; Blood Pressure: 118/70 [ECG DIAGNOSTIC STATEMENTS] Date of Test: 09/04/2015 12:25:05; Summary: Sinus Rhythm WITHIN NORMAL LIMITS Master Sonu Work Phone: Start: 09-04-2015 End: 09-04-2015 Spmtry w/vc expiratory luis e w/wo mxml vol vntj _ Master Sonu Work Phone: Mammography ROSE Suazo Comment on above: 10/03/2014, 10-13-17 Mammography Torsten Mitchell Work Phone: Comment on above: 10/03/2014, 10-13-17 Mammography ROSE Suazo Comment on above: 10/03/2014, 10-13-17 Mammography ROSE Suazo Comment on above: 10/03/2014, 10-13-17 Mammography ROSE Suazo Comment on above: 10/03/2014, 10-13-17 Mammography ROSE Suazo Comment on above: 10/03/2014, 10-13-17 Mammography Smiley Manchak [employer] TECHNICIAN Comment on above: 10/03/2014, 10-13-17 Mammography Kayela Chemung [employer] TECHNICIAN Comment on above: 10/03/2014, 10-13-17 Mammography Smiley Manchak [employer] TECHNICIAN Comment on above: 10/03/2014, 10-13-17 Mammography Hanna Peña MA Comment on above: 10/03/2014, 10-13-17 Mammography Yanira Quinn PN Comment on above: 10/03/2014, 10-13-17 Microscopic observat ion [Identifier] in Cervix by Cyto stain Smiley Manchak [employer] TECHNICIAN Comment on above: and HPV screening 2012 Microscopic observat ion [Identifier] in Cervix by Cyto stain Kayela Chemung [employer] M[employer] TECHNICIAN Comment on above: and HPV screening 2012 Microscopic observat ion [Identifier] in Cervix by Cyto stain Smiley Manchak [employer] M[employer] TECHNICIAN Comment on above: and HPV screening 2012 Microscopic observat ion [Identifier] in Cervix by Cyto stain Hanna Peña MA Comment on above: and HPV screening 2012 Microscopic observat ion [Identifier] in Cervix by Cyto stain Yanira Fletcher LPN Comment on above: and HPV screening 2012 Microscopic observat ion Cyto stain Nom (Cvx) ROSE Suazo Comment on above: and HPV screening 2012 Microscopic observat ion Cyto stain Nom (Cvx) Torsten Mitchell Work Phone: Comment on above: and HPV screening 2012 Microscopic observat ion Cyto stain Nom (Cvx) ROSE Suazo Comment on above: and HPV screening 2012 Microscopic observat ion Cyto stain Nom (Cvx) ROSE Suazo Comment on above: and HPV screening 2012 Microscopic observat ion Cyto stain Nom (Cvx) ROSE Suazo Comment on above: and HPV screening 2012 Microscopic observat ion Cyto stain Nom (Cvx) ROSE Suazo Comment on above: and HPV screening 2012 R breast Ductectomy 2002 RYANN Suazo Comment on above: [facility]at [facility] Irving Mitchell Work Phone: Comment on above: No post-op complicat ions. [facility], Dr Earline Barlow breast Ductectomy 2002 RYANN Suazo Comment on above: No post-op complicat ions. [facility], Dr Earline Barlow breast Ductectomy 2002 RYANN Suazo Comment on above: No post-op complicat ions. [facility], Dr Earline Barlow breast Ductectomy 2002 RYANN Suazo Comment on above: No post-op complicat ions. [facility], Dr Earline Barlow breast Ductectomy 2001 RYANN Suazo Comment on above: No post-op complicat ions. 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 [facility], Dr Earline Barlow breast Ductectomy 2001 Jenifer Coreas [employer] M[employer] TECHNICIAN Comment on above: No post-op complicat ions. 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 [facility], Dr Earline Barlow breast Ductectomy 2001 Devin Peña MA Comment on above: No post-op complicat ions. [facility], Dr Earline Barlow breast Ductectomy 2001 Kei Fletcher LPN Comment on above: No post-op complicat ions. [facility] of Treatment Date Care Activity Detail Author Start: 04-22-2023 Procedure Education Eprescribe d prescriptions (G8553) [facility]; [facility] Work Phone: Start: 04-16-2023 COVID-19 Vaccine () COVID-19 Vaccine ( season) [facility] Start: 03-11-2023 Procedure Education Eprescribe d prescriptions (G8553) [facility]; [facility] Work Phone: Start: 06-12-2022 Nursing Care Education Histofreealicia - Keren [facility]; [facility] Work Phone: Start: 06-12-2022 Procedure Education Eprescribe d prescriptions (G8553) [facility]; [facility] Work Phone: Start: 06-12-2022 Lipid panel LIPID PANEL (00047) [facility]; [facility] Work Phone: Start: 04-05-2022 Urine albumin quantitative MICROALBUMIN: CREATININE RATIO (76770) AND (99686) [facility]; [facility] Work Phone: Start: 04-05-2022 Urinalysis qual/semiquant except immunoassays URINALYSIS (57829) [facility]; [facility] Work Phone: Start: 04-02-2022 Procedure Education Eprescribe d prescriptions (G8553) [facility]; [facility] Work Phone: Start: 08-24-2021 DTaP/Tdap/Td Vaccine s (2 - Td or Tdap) DTaP/Tdap/Td Vaccines (2 - Td or Tdap) [facility] Start: 08-01-2021 Assay of thyroid stimulating hormone tsh TSH (76778) [facility] Work Phone: Start: 05-23-2021 Procedure Education Eprescribe d prescriptions (G8553) [facility]; [facility] Work Phone: Start: 03-25-2021 Procedure Education Eprescribe d prescriptions (G8553) [facility]; [facility] Work Phone: Start: 03-08-2020 Lipoprotein blood qu an numbers & subclasses NMR Profile (53896) [facility] Work Phone: Start: 12-15-2019 SARS-CoV-2 Antibody, IgG SARS-CoV-2 Antibody, IgG [facility] Work Phone: Start: 01-20-2019 Lipoprotein blood qu an numbers & subclasses NMR Profile (64509) [facility] Work Phone: Start: 01-20-2019 25 hydroxy includes fractions if performed CALCIFIDIOL (02823) VIT D 25 [facility] Work Phone: Start: 01-12-2019 Provider Instruction s for Treatment Shoulder Injection [facility] Work Phone: Start: 10-18-2018 Urinalysis qual/semiquant except immunoassays URINALYSIS (80606) [facility] Work Phone: Start: 10-18-2018 Comprehensive metabo lic panel Metabolic Panel, Comprehensive (14876) [facility] Work Phone: Start: 10-18-2018 Blood count manual c ell count each CBC WITH MANUAL DIFF (09590) [facility] Work Phone: Start: 10-22-2017 Patient Education Mammogram *: gynecological health [facility] Work Phone: Start: 10-22-2017 Cytp c/v auto thin l yr prepj scr mnl rescr phys Thin Prep Pap (34526) [facility] Work Phone: Start: 07-27-2017 Procedure Education Eprescribe d prescriptions (G8553) [facility] Work Phone: Start: 05-07-2017 Procedure Education Eprescribe d prescriptions (G8553) [facility] Work Phone: Start: 09-18-2016 Provider Instruction s for Treatment Follow up in 4 weeks [facility] Work Phone: Start: 12-27-2015 C-reactive protein C-REACTIVE PROTEIN (28570) [facility]; [facility] Work Phone: Start: 12-27-2015 CRP mass conc C-REACTIVE PRO TEIN (64677) [facility] Work Phone: Start: 09-04-2015 Procedure Education Eprescribe d prescriptions (G8553) [facility] Work Phone: Start: 09-04-2015 Provider Instruction s for Treatment [facility] Work Phone: Start: 09-04-2015 Assay of folic acid serum Folate (73028) [facility] Work Phone: Start: 09-04-2015 Cobalamin (Vitamin B 12) mass conc VITAMIN B-12 (CYANOCOBALAMIN) (51505) [facility] Work Phone: Start: 09-04-2015 Cyanocobalamin vitam in b-12 VITAMIN B-12 (CYANOCOBALAMIN) (62352) [facility]; [facility] Work Phone: Start: 09-04-2015 Antinuclear antibodi es maikel MAIKEL (ANTINUCLEAR ANTIBODY) (90083) [facility]; [facility] Work Phone: Start: 09-04-2015 C-reactive protein C-REACTIVE PROTEIN (15207) [facility]; [facility] Work Phone: Start: 09-04-2015 CRP mass conc C-REACTIVE PRO TEIN (92326) [facility] Work Phone: Start: 09-04-2015 Nuclear Ab IF titer (S) MAIKEL (A NTINUCLEAR ANTIBODY) (33082) [facility] Work Phone: Start: 09-04-2015 Rheumatoid factor quantitative RHEUMATOID FACTOR-QUANT (69912) [facility] Work Phone: Start: 09-04-2015 Sedimentation rate r bc non-automated SED RATE ERYTHROCYTE (09521) [facility] Work Phone: Start: 09-04-2015 Assay of thyroid stimulating hormone tsh TSH (THYROID STIMULATING HORMONE) (30619) [facility]; [facility] Work Phone: Start: 09-04-2015 Thyrotropin Qn TSH (THYROID STIMULATING HORMONE) (84482) [facility] Work Phone: Start: 09-04-2015 Comprehensive metabo lic panel METABOLIC PANEL, COMPREHENSIVE (33648) [facility] Work Phone: Start: 09-04-2015 Blood count complete auto&auto difrntl wbc CBC, PLATELETS & AUT DIFF (49766) [facility] Work Phone: Start: 09-04-2015 25 hydroxy includes fractions if performed [facility] Work Phone: Start: 2011 Screening for malign ant neoplasm of breast Mammogram [facility] Start: 02-06-1992 Screening for malign ant neoplasm of cervix [facility] Start: 1990 Hepatitis B Vaccines (1 of 3 - 19+ 3-dose series) Hepatitis B Vaccines (1 of 3 - 19+ 3-dose series) [facility] Start: 1989 Diabetes mellitus screening Diabetes Screening [facility] Start: 1989 Hepatitis C screening Hepatitis C Sc reeramez [facility] Start: 02-06-1972 MMR Vaccines (1 of 1 - Standard series) MMR Vaccines (1 of 1 - Standard series) [facility] Start: 1971 HIV screening HIV Screening [facility] Start: 1971 Lipid panel Lipid Panel [facility] Start: 1971 Screening for malign ant neoplasm of colon [facility] Start: 1971 Yearly Adult Physical Yearly Adult P hysical [facility] End: 12-09-2023 CT for calcium scoring WO contrast and CTA W contrast IV Heart and coronary arteries [facility] Service Area Work Phone: Comment on above: Once for 1 Occurrenc es starting 12/09/2023 until 12/09/2023 [facility] Work [facility]: [facility] Work [facility]: [facility] Work [facility]: [facility] Work [facility]: [facility] Work [facility]: [facility] Work Phone: [facility] Work Phone: Screening for HP V (human papillomavirus) (Renamed from Encounter for screening for human papillomavirus (HPV)) : Mammogram *: gynecological health [facility] Work Phone: [facility] Work [facility]: [facility] Work Phone[facility] Work Phone: [facility] Work Phone: [facility] Work Phone: [facility] Work Phone: [facility] Work Phone: [facility] Work Phone: [facility] Work Phone: [facility] Work Phone: [facility] Work Phone: Immunizations Immunization Date Immunization Notes Care Provider [facility] 05-06-2022 COVID-Moderna (50 MCG/0.25 ML) Torsten Mitchell MD Work Phone: [facility]; [facility] Work Phone: 05-06-2022 influenza, injectabl e, quadrivalent, preservative free Torsten Mitchell MD Work Phone: [facility]; [facility] Work Phone: 07-16-2021 COVID-Pfizer (10 MCG/0.2 ML) Torsten Mitchell MD Work Phone: [facility]; [facility] Work Phone: 11-14-2020 COVID-Pfizer (10 MCG/0.2 ML) Torsten Mitchell MD Work Phone: [facility]; [facility] Work Phone: Payers Date Payer Category Payer Self-pay [id number] 2023 Unknown [id number] 2023 Unknown 2020 Unknown [id number] 1971 Unknown [id number] 1971 Unknown [id number] Unknown [id number] Unknown [id number] [id number] Unknown [id number] [id number] [id number] Unknown [id number] [id number] [id number] Social History Date Type Detail Facility Alcohol Use [facility] Work Phone: Comment on above: 1-2 glasses of wine or beer once a week at max, does not drink weekly 1 cup coffee qd lives with s pouse Current Work/Study Status: Full-time. 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 Start: 1970 Sex Assigned At Female W [facility] Start: 1971 Sex assigned at Not on file [facility] Work Phone: Gender identity Not on file [facility] Work Phone: Start: 11-29-2023 End: 12-09-2023 Exposure to SARS-CoV-2 (event) Not sure [facility] Functional Status Date Assessment Result Facility 04-25-2021 LP-IR Score LP-IR Score 82 [facility]; [facility] Work Phone: Comment on above: INSULIN RESISTANCE Fariba GARCIA <--Insulin Sensitive Insulin Resistant--> Percentile in Reference PopulationInsulin Resistance ScoreLP-IR Score Low 25th 50th 75th High <27 27 45 63 >63LP-IR Score is inaccurate if patient is non-fasting. .The LP-IR score is a laboratory developed index that has beenassociated with insulin resistance and diabetes risk and should beused as one component of a physician's clinical assessment. Test(s) 598090-MYN-K ; 757318-YLA-A; 833907-Hihwrqengrkzh; 355018-Xreiiyzzepv, Total; 402452-UIK-L (Total); 621248-Sykds LDL-P; 830680-GBB Size; 352715-PH-RY Scorewas developed and its performance characteristics determinedby [employer]. It has not been cleared or approved by the Foodand Drug Administration.PATIENT WAS FASTINGPERFORMED BY: [employer] [address] [id number] BY: SUPENT[facility]STUS St[facility] Medical CenterXtltno[address] [facility] [id number] Information: NURSE DRAW; fu 05-2307-28-2019 LP-IR Score LP-IR Score 55 [facility] Work Phone: Comment on above: INSULIN RESISTANCE Fariba GARCIA <--Insulin Sensitive Insulin Resistant--> Percentile in Reference PopulationInsulin Resistance ScoreLP-IR Score Low 25th 50th 75th High <27 27 45 63 >63LP-IR Score is inaccurate if patient is non-fasting. .The LP-IR score is a laboratory developed index that has beenassociated with insulin resistance and diabetes risk and should beused as one component of a physician's clinical assessment. Test(s) 132773-XNM-O ; 996984-ROZ-Z; 855883-TGB-N; 520852-Hzsrhpvgobsmx; 037159-Idxzfdibexu, Total; 818081-TDD-G (Total);246277-Knsqm LDL-P; 161254-PNC Size; 372507-BG-VE Scorewas developed and its performance characteristics determinedby [employer]. It has not been cleared or approved by the Foodand Drug Administration.PATIENT WAS FASTINGPERFORMED BY: [facility] UniversityCarrier ClinicBoceoaxejx5671 [facility] [id number] BY: SUPENTAEnglewood Hospital and Medical CenterGnjzub4[address] [facility] [id number] Clinical Notes 03-19-2021 Note Date & Type Note Facility 03-19-2021 Note HNO ID: [id number] Author: RT Joel(R) Service: ? Author Type: [employer] Work[employer] Type: Progress Notes Filed: 03/19/2021 7:34 AM Note Text: Radiology Service Progress Note PATIENT NAME: Shayy Jackman DATE OF SERVICE: March 19, 2021 TIME: 7:34 AM PATIENT IDENTITY VERIFICATION COMPLETED USING TWO (2) IDENTIFIERS: Name and Date of confirmed by patient verbally. FALL SCREENING: Has the patient had 2 falls in the last year or 1 fall with injury or currently using an Ambulatory Assistive Device (Walker, Cane, Wheelchair, Crutches, etc.)? No PATIENT GENDER DATA: Female. status: : No status: NO. PATIENT RELEVANT IMPLANT DATA REVIEWED: Not Applicable RADIOLOGY DEPARTMENT: General X-ray: Exam(s) Completed: Lower Extremity X-Ray(s): Knee, AP / Lat / Merchant Bilateral PERIPHERAL IV DATA: Not applicable SIGNED BY: RT Joel(R) March 19, 2021 7:34 AM [facility] Evaluation note No assessment information [facility] Work Phone: Evaluation note Diagnosis Abnormal electrocardiogram (ECG) (EKG) documented in this encounter [facility] Work Phone: Instructions* Name Dates Details How to access health informa tion online Indication:Well woman exam (Renamed from Encounter for well woman exam) Start:08-Mar-2020 Instruction Type:Patient Education How to access health informa tion online - Detail Indication:Well woman exam (Renamed from Encounter for well woman exam) Start:08-Mar-2020 Instruction Type:Patient Education Patient Instructions Indication:Well woman exam (Renamed from Encounter for well woman exam) Start:08-Mar-2020 Instruction Type:Provider Instructions for Treatment How to access health informa tion online Indication:Pain in right lower leg Start:27-Jun-2019 Instruction Type:Patient Education How to access health informa tion online - Detail Indication:Pain in right lower leg Start:27-Jun-2019 Instruction Type:Patient Education Patient Instructions Indication:Pain in right lower leg Start:27-Jun-2019 Instruction Type:Provider Instructions for Treatment How to access health informa tion online Indication:Physical exam WITHOUT abnormal findings (Renamed from Encounter for routine adult health examination without abnormal findings) Start:20-Jan-2019 Instruction Type:Patient Education How to access health informa tion online - Detail Indication:Physical exam WITHOUT abnormal findings (Renamed from Encounter for routine adult health examination without abnormal findings) Start:20-Jan-2019 Instruction Type:Patient Education Patient Instructions Indication:Physical exam WITHOUT abnormal findings (Renamed from Encounter for routine adult health examination without abnormal findings) Start:20-Jan-2019 Instruction Type:Provider Instructions for Treatment How to access health informa tion online Indication:Left shoulder pain Start:12-Jan-2019 Instruction Type:Patient Education How to access health informa tion online - Detail Indication:Left shoulder pain Start:12-Jan-2019 Instruction Type:Patient Education Patient Instructions Indication:Left shoulder pain Start:12-Jan-2019 Instruction Type:Provider Instructions for Treatment How to access health informa tion online Indication:Screening for HPV (human papillomavirus) (Renamed from Encounter for screening for human papillomavirus (HPV)) Start:22-Oct-2017 Instruction Type:Patient Education How to access health informa tion online - Detail Indication:Screening for HPV (human papillomavirus) (Renamed from Encounter for screening for human papillomavirus (HPV)) Start:22-Oct-2017 Instruction Type:Patient Education Patient Instructions Indication:Screening for HPV (human papillomavirus) (Renamed from Encounter for screening for human papillomavirus (HPV)) Start:22-Oct-2017 Instruction Type:Provider Instructions for Treatment How to access health informa tion online Indication:BMI 33.0-33.9,adult Start:27-Jul-2017 Instruction Type:Patient Education How to access health informa tion online - Detail Indication:BMI 33.0-33.9,adult Start:27-Jul-2017 Instruction Type:Patient Education Patient Instructions Indication:BMI 33.0-33.9,adult Start:27-Jul-2017 Instruction Type:Provider Instructions for Treatment How to access health informa tion online Indication:Left hip pain Start:20-Jul-2017 Instruction Type:Patient Education How to access health informa tion online - Detail Indication:Left hip pain Start:20-Jul-2017 Instruction Type:Patient Education Patient Instructions Indication:Left hip pain Start:20-Jul-2017 Instruction Type:Provider Instructions for Treatment How to access health informa tion online Indication:BMI 36.0-36.9,adult Start:07-May-2017 Instruction Type:Patient Education How to access health informa tion online - Detail Indication:BMI 36.0-36.9,adult Start:07-May-2017 Instruction Type:Patient Education Patient Instructions Indication:BMI 36.0-36.9,adult Start:07-May-2017 Instruction Type:Provider Instructions for Treatment How to access health informa tion online Indication:BMI 34.0-34.9,adult Start:18-Sep-2016 Instruction Type:Patient Education Patient Instructions Indication:BMI 34.0-34.9,adult Start:18-Sep-2016 Instruction Type:Provider Instructions for Treatment How to access health informa tion online Indication:Pneumonia Start:04-Sep-2015 Instruction Type:Patient Education How to access health informa tion online - Detail Indication:Pneumonia Start:04-Sep-2015 Instruction Type:Patient Education Patient Instructions Indication:Pneumonia Start:04-Sep-2015 Instruction Type:Provider Instructions for Treatment [facility]; [facility] Work Phone: Instructions* Name Dates Details How to access health informa tion online Indication:Well woman exam (Renamed from Encounter for well woman exam) Start:08-Mar-2020 Instruction Type:Patient Education How to access health informa tion online - Detail Indication:Well woman exam (Renamed from Encounter for well woman exam) Start:08-Mar-2020 Instruction Type:Patient Education Patient Instructions Indication:Well woman exam (Renamed from Encounter for well woman exam) Start:08-Mar-2020 Instruction Type:Provider Instructions for Treatment How to access health informa tion online Indication:Pain in right lower leg Start:27-Jun-2019 Instruction Type:Patient Education How to access health informa tion online - Detail Indication:Pain in right lower leg Start:27-Jun-2019 Instruction Type:Patient Education Patient Instructions Indication:Pain in right lower leg Start:27-Jun-2019 Instruction Type:Provider Instructions for Treatment How to access health informa tion online Indication:Physical exam WITHOUT abnormal findings (Renamed from Encounter for routine adult health examination without abnormal findings) Start:20-Jan-2019 Instruction Type:Patient Education How to access health informa tion online - Detail Indication:Physical exam WITHOUT abnormal findings (Renamed from Encounter for routine adult health examination without abnormal findings) Start:20-Jan-2019 Instruction Type:Patient Education Patient Instructions Indication:Physical exam WITHOUT abnormal findings (Renamed from Encounter for routine adult health examination without abnormal findings) Start:20-Jan-2019 Instruction Type:Provider Instructions for Treatment How to access health informa tion online Indication:Left shoulder pain Start:12-Jan-2019 Instruction Type:Patient Education How to access health informa tion online - Detail Indication:Left shoulder pain Start:12-Jan-2019 Instruction Type:Patient Education Patient Instructions Indication:Left shoulder pain Start:12-Jan-2019 Instruction Type:Provider Instructions for Treatment How to access health informa tion online Indication:Screening for HPV (human papillomavirus) (Renamed from Encounter for screening for human papillomavirus (HPV)) Start:22-Oct-2017 Instruction Type:Patient Education How to access health informa tion online - Detail Indication:Screening for HPV (human papillomavirus) (Renamed from Encounter for screening for human papillomavirus (HPV)) Start:22-Oct-2017 Instruction Type:Patient Education Patient Instructions Indication:Screening for HPV (human papillomavirus) (Renamed from Encounter for screening for human papillomavirus (HPV)) Start:22-Oct-2017 Instruction Type:Provider Instructions for Treatment How to access health informa tion online Indication:BMI 33.0-33.9,adult Start:27-Jul-2017 Instruction Type:Patient Education How to access health informa tion online - Detail Indication:BMI 33.0-33.9,adult Start:27-Jul-2017 Instruction Type:Patient Education Patient Instructions Indication:BMI 33.0-33.9,adult Start:27-Jul-2017 Instruction Type:Provider Instructions for Treatment How to access health informa tion online Indication:Left hip pain Start:20-Jul-2017 Instruction Type:Patient Education How to access health informa tion online - Detail Indication:Left hip pain Start:20-Jul-2017 Instruction Type:Patient Education Patient Instructions Indication:Left hip pain Start:20-Jul-2017 Instruction Type:Provider Instructions for Treatment How to access health informa tion online Indication:BMI 36.0-36.9,adult Start:07-May-2017 Instruction Type:Patient Education How to access health informa tion online - Detail Indication:BMI 36.0-36.9,adult Start:07-May-2017 Instruction Type:Patient Education Patient Instructions Indication:BMI 36.0-36.9,adult Start:07-May-2017 Instruction Type:Provider Instructions for Treatment How to access health informa tion online Indication:BMI 34.0-34.9,adult Start:18-Sep-2016 Instruction Type:Patient Education Patient Instructions Indication:BMI 34.0-34.9,adult Start:18-Sep-2016 Instruction Type:Provider Instructions for Treatment How to access health informa tion online Indication:Pneumonia Start:04-Sep-2015 Instruction Type:Patient Education How to access health informa tion online - Detail Indication:Pneumonia Start:04-Sep-2015 Instruction Type:Patient Education Patient Instructions Indication:Pneumonia Start:04-Sep-2015 Instruction Type:Provider Instructions for Treatment [facility]; [facility] Work Phone: Instructions* Name Dates Details Patient Instructions Indication:Physical exam WITHOUT abnormal findings (Renamed from Encounter for routine adult health examination without abnormal findings) Start:23-May-2021 Instruction Type:Provider Instructions for Treatment How to Access Health Informa tion Online using Patient Portal and [email or web address] Indication:Physical exam WITHOUT abnormal findings (Renamed from Encounter for routine adult health examination without abnormal findings) Start:23-May-2021 Instruction Type:Patient Education Patient Instructions Indication:Nonsmoker Start:25-Mar-2021 Instruction Type:Provider Instructions for Treatment How to Access Health Informa tion Online using Patient Portal and [employer] Apps Indication:Nonsmoker Start:25-Mar-2021 Instruction Type:Patient Education How to access health informa tion online Indication:Well woman exam (Renamed from Encounter for well woman exam) Start:08-Mar-2020 Instruction Type:Patient Education How to access health informa tion online - Detail Indication:Well woman exam (Renamed from Encounter for well woman exam) Start:08-Mar-2020 Instruction Type:Patient Education Patient Instructions Indication:Well woman exam (Renamed from Encounter for well woman exam) Start:08-Mar-2020 Instruction Type:Provider Instructions for Treatment How to access health informa tion online Indication:Pain in right lower leg Start:27-Jun-2019 Instruction Type:Patient Education How to access health informa tion online - Detail Indication:Pain in right lower leg Start:27-Jun-2019 Instruction Type:Patient Education Patient Instructions Indication:Pain in right lower leg Start:27-Jun-2019 Instruction Type:Provider Instructions for Treatment How to access health informa tion online Indication:Physical exam WITHOUT abnormal findings (Renamed from Encounter for routine adult health examination without abnormal findings) Start:20-Jan-2019 Instruction Type:Patient Education How to access health informa tion online - Detail Indication:Physical exam WITHOUT abnormal findings (Renamed from Encounter for routine adult health examination without abnormal findings) Start:20-Jan-2019 Instruction Type:Patient Education Patient Instructions Indication:Physical exam WITHOUT abnormal findings (Renamed from Encounter for routine adult health examination without abnormal findings) Start:20-Jan-2019 Instruction Type:Provider Instructions for Treatment How to access health informa tion online Indication:Left shoulder pain Start:12-Jan-2019 Instruction Type:Patient Education How to access health informa tion online - Detail Indication:Left shoulder pain Start:12-Jan-2019 Instruction Type:Patient Education Patient Instructions Indication:Left shoulder pain Start:12-Jan-2019 Instruction Type:Provider Instructions for Treatment How to access health informa tion online Indication:Screening for HPV (human papillomavirus) (Renamed from Encounter for screening for human papillomavirus (HPV)) Start:22-Oct-2017 Instruction Type:Patient Education How to access health informa tion online - Detail Indication:Screening for HPV (human papillomavirus) (Renamed from Encounter for screening for human papillomavirus (HPV)) Start:22-Oct-2017 Instruction Type:Patient Education Patient Instructions Indication:Screening for HPV (human papillomavirus) (Renamed from Encounter for screening for human papillomavirus (HPV)) Start:22-Oct-2017 Instruction Type:Provider Instructions for Treatment How to access health informa tion online Indication:BMI 33.0-33.9,adult Start:27-Jul-2017 Instruction Type:Patient Education How to access health informa tion online - Detail Indication:BMI 33.0-33.9,adult Start:27-Jul-2017 Instruction Type:Patient Education Patient Instructions Indication:BMI 33.0-33.9,adult Start:27-Jul-2017 Instruction Type:Provider Instructions for Treatment How to access health informa tion online Indication:Left hip pain Start:20-Jul-2017 Instruction Type:Patient Education How to access health informa tion online - Detail Indication:Left hip pain Start:20-Jul-2017 Instruction Type:Patient Education Patient Instructions Indication:Left hip pain Start:20-Jul-2017 Instruction Type:Provider Instructions for Treatment How to access health informa tion online Indication:BMI 36.0-36.9,adult Start:07-May-2017 Instruction Type:Patient Education How to access health informa tion online - Detail Indication:BMI 36.0-36.9,adult Start:07-May-2017 Instruction Type:Patient Education Patient Instructions Indication:BMI 36.0-36.9,adult Start:07-May-2017 Instruction Type:Provider Instructions for Treatment How to access health informa tion online Indication:BMI 34.0-34.9,adult Start:18-Sep-2016 Instruction Type:Patient Education Patient Instructions Indication:BMI 34.0-34.9,adult Start:18-Sep-2016 Instruction Type:Provider Instructions for Treatment How to access health informa tion online Indication:Pneumonia Start:04-Sep-2015 Instruction Type:Patient Education How to access health informa tion online - Detail Indication:Pneumonia Start:04-Sep-2015 Instruction Type:Patient Education Patient Instructions Indication:Pneumonia Start:04-Sep-2015 Instruction Type:Provider Instructions for Treatment [facility]; [facility] Work Phone: Instructions* Name Dates Details Patient Instructions Indication:Physical exam WITHOUT abnormal findings (Renamed from Encounter for routine adult health examination without abnormal findings) Start:23-May-2021 Instruction Type:Provider Instructions for Treatment How to Access Health Informa tion Online using Patient Portal and [employer] Apps Indication:Physical exam WITHOUT abnormal findings (Renamed from Encounter for routine adult health examination without abnormal findings) Start:23-May-2021 Instruction Type:Patient Education Patient Instructions Indication:Nonsmoker Start:25-Mar-2021 Instruction Type:Provider Instructions for Treatment How to Access Health Informa tion Online using Patient Portal and [employer] Apps Indication:Nonsmoker Start:25-Mar-2021 Instruction Type:Patient Education How to access health informa tion online Indication:Well woman exam (Renamed from Encounter for well woman exam) Start:08-Mar-2020 Instruction Type:Patient Education How to access health informa tion online - Detail Indication:Well woman exam (Renamed from Encounter for well woman exam) Start:08-Mar-2020 Instruction Type:Patient Education Patient Instructions Indication:Well woman exam (Renamed from Encounter for well woman exam) Start:08-Mar-2020 Instruction Type:Provider Instructions for Treatment How to access health informa tion online Indication:Pain in right lower leg Start:27-Jun-2019 Instruction Type:Patient Education How to access health informa tion online - Detail Indication:Pain in right lower leg Start:27-Jun-2019 Instruction Type:Patient Education Patient Instructions Indication:Pain in right lower leg Start:27-Jun-2019 Instruction Type:Provider Instructions for Treatment How to access health informa tion online Indication:Physical exam WITHOUT abnormal findings (Renamed from Encounter for routine adult health examination without abnormal findings) Start:20-Jan-2019 Instruction Type:Patient Education How to access health informa tion online - Detail Indication:Physical exam WITHOUT abnormal findings (Renamed from Encounter for routine adult health examination without abnormal findings) Start:20-Jan-2019 Instruction Type:Patient Education Patient Instructions Indication:Physical exam WITHOUT abnormal findings (Renamed from Encounter for routine adult health examination without abnormal findings) Start:20-Jan-2019 Instruction Type:Provider Instructions for Treatment How to access health informa tion online Indication:Left shoulder pain Start:12-Jan-2019 Instruction Type:Patient Education How to access health informa tion online - Detail Indication:Left shoulder pain Start:12-Jan-2019 Instruction Type:Patient Education Patient Instructions Indication:Left shoulder pain Start:12-Jan-2019 Instruction Type:Provider Instructions for Treatment How to access health informa tion online Indication:Screening for HPV (human papillomavirus) (Renamed from Encounter for screening for human papillomavirus (HPV)) Start:22-Oct-2017 Instruction Type:Patient Education How to access health informa tion online - Detail Indication:Screening for HPV (human papillomavirus) (Renamed from Encounter for screening for human papillomavirus (HPV)) Start:22-Oct-2017 Instruction Type:Patient Education Patient Instructions Indication:Screening for HPV (human papillomavirus) (Renamed from Encounter for screening for human papillomavirus (HPV)) Start:22-Oct-2017 Instruction Type:Provider Instructions for Treatment How to access health informa tion online Indication:BMI 33.0-33.9,adult Start:27-Jul-2017 Instruction Type:Patient Education How to access health informa tion online - Detail Indication:BMI 33.0-33.9,adult Start:27-Jul-2017 Instruction Type:Patient Education Patient Instructions Indication:BMI 33.0-33.9,adult Start:27-Jul-2017 Instruction Type:Provider Instructions for Treatment How to access health informa tion online Indication:Left hip pain Start:20-Jul-2017 Instruction Type:Patient Education How to access health informa tion online - Detail Indication:Left hip pain Start:20-Jul-2017 Instruction Type:Patient Education Patient Instructions Indication:Left hip pain Start:20-Jul-2017 Instruction Type:Provider Instructions for Treatment How to access health informa tion online Indication:BMI 36.0-36.9,adult Start:07-May-2017 Instruction Type:Patient Education How to access health informa tion online - Detail Indication:BMI 36.0-36.9,adult Start:07-May-2017 Instruction Type:Patient Education Patient Instructions Indication:BMI 36.0-36.9,adult Start:07-May-2017 Instruction Type:Provider Instructions for Treatment How to access health informa tion online Indication:BMI 34.0-34.9,adult Start:18-Sep-2016 Instruction Type:Patient Education Patient Instructions Indication:BMI 34.0-34.9,adult Start:18-Sep-2016 Instruction Type:Provider Instructions for Treatment How to access health informa tion online Indication:Pneumonia Start:04-Sep-2015 Instruction Type:Patient Education How to access health informa tion online - Detail Indication:Pneumonia Start:04-Sep-2015 Instruction Type:Patient Education Patient Instructions Indication:Pneumonia Start:04-Sep-2015 Instruction Type:Provider Instructions for Treatment [facility]; [facility] Work Phone: Instructions* Name Dates Details Patient Instructions Indication:Obesity (BMI 30.0-34.9) Start:02-Apr-2022 Instruction Type:Provider Instructions for Treatment How to Access Health Informa tion Online using Patient Portal and [employer] Indication:Obesity (BMI 30.0-34.9) Start:02-Apr-2022 Instruction Type:Patient Education Patient Instructions Indication:Physical exam WITHOUT abnormal findings (Renamed from Encounter for routine adult health examination without abnormal findings) Start:23-May-2021 Instruction Type:Provider Instructions for Treatment How to Access Health Informa tion Online using Patient Portal and [employer] Indication:Physical exam WITHOUT abnormal findings (Renamed from Encounter for routine adult health examination without abnormal findings) Start:23-May-2021 Instruction Type:Patient Education Patient Instructions Indication:Nonsmoker Start:25-Mar-2021 Instruction Type:Provider Instructions for Treatment How to Access Health Informa tion Online using Patient Portal and [employer] Indication:Nonsmoker Start:25-Mar-2021 Instruction Type:Patient Education How to access health informa tion online Indication:Well woman exam (Renamed from Encounter for well woman exam) Start:08-Mar-2020 Instruction Type:Patient Education How to access health informa tion online - Detail Indication:Well woman exam (Renamed from Encounter for well woman exam) Start:08-Mar-2020 Instruction Type:Patient Education Patient Instructions Indication:Well woman exam (Renamed from Encounter for well woman exam) Start:08-Mar-2020 Instruction Type:Provider Instructions for Treatment How to access health informa tion online Indication:Pain in right lower leg Start:27-Jun-2019 Instruction Type:Patient Education How to access health informa tion online - Detail Indication:Pain in right lower leg Start:27-Jun-2019 Instruction Type:Patient Education Patient Instructions Indication:Pain in right lower leg Start:27-Jun-2019 Instruction Type:Provider Instructions for Treatment How to access health informa tion online Indication:Physical exam WITHOUT abnormal findings (Renamed from Encounter for routine adult health examination without abnormal findings) Start:20-Jan-2019 Instruction Type:Patient Education How to access health informa tion online - Detail Indication:Physical exam WITHOUT abnormal findings (Renamed from Encounter for routine adult health examination without abnormal findings) Start:20-Jan-2019 Instruction Type:Patient Education Patient Instructions Indication:Physical exam WITHOUT abnormal findings (Renamed from Encounter for routine adult health examination without abnormal findings) Start:20-Jan-2019 Instruction Type:Provider Instructions for Treatment How to access health informa tion online Indication:Left shoulder pain Start:12-Jan-2019 Instruction Type:Patient Education How to access health informa tion online - Detail Indication:Left shoulder pain Start:12-Jan-2019 Instruction Type:Patient Education Patient Instructions Indication:Left shoulder pain Start:12-Jan-2019 Instruction Type:Provider Instructions for Treatment How to access health informa tion online Indication:Screening for HPV (human papillomavirus) (Renamed from Encounter for screening for human papillomavirus (HPV)) Start:22-Oct-2017 Instruction Type:Patient Education How to access health informa tion online - Detail Indication:Screening for HPV (human papillomavirus) (Renamed from Encounter for screening for human papillomavirus (HPV)) Start:22-Oct-2017 Instruction Type:Patient Education Patient Instructions Indication:Screening for HPV (human papillomavirus) (Renamed from Encounter for screening for human papillomavirus (HPV)) Start:22-Oct-2017 Instruction Type:Provider Instructions for Treatment How to access health informa tion online Indication:BMI 33.0-33.9,adult Start:27-Jul-2017 Instruction Type:Patient Education How to access health informa tion online - Detail Indication:BMI 33.0-33.9,adult Start:27-Jul-2017 Instruction Type:Patient Education Patient Instructions Indication:BMI 33.0-33.9,adult Start:27-Jul-2017 Instruction Type:Provider Instructions for Treatment How to access health informa tion online Indication:Left hip pain Start:20-Jul-2017 Instruction Type:Patient Education How to access health informa tion online - Detail Indication:Left hip pain Start:20-Jul-2017 Instruction Type:Patient Education Patient Instructions Indication:Left hip pain Start:20-Jul-2017 Instruction Type:Provider Instructions for Treatment How to access health informa tion online Indication:BMI 36.0-36.9,adult Start:07-May-2017 Instruction Type:Patient Education How to access health informa tion online - Detail Indication:BMI 36.0-36.9,adult Start:07-May-2017 Instruction Type:Patient Education Patient Instructions Indication:BMI 36.0-36.9,adult Start:07-May-2017 Instruction Type:Provider Instructions for Treatment How to access health informa tion online Indication:BMI 34.0-34.9,adult Start:18-Sep-2016 Instruction Type:Patient Education Patient Instructions Indication:BMI 34.0-34.9,adult Start:18-Sep-2016 Instruction Type:Provider Instructions for Treatment How to access health informa tion online Indication:Pneumonia Start:04-Sep-2015 Instruction Type:Patient Education How to access health informa tion online - Detail Indication:Pneumonia Start:04-Sep-2015 Instruction Type:Patient Education Patient Instructions Indication:Pneumonia Start:04-Sep-2015 Instruction Type:Provider Instructions for Treatment [facility]; [facility] Work Phone: Instructions* Name Dates Details Patient Instructions Indication:Physical exam WITHOUT abnormal findings (Renamed from Encounter for routine adult health examination without abnormal findings) Start:12-Jun-2022 Instruction Type:Provider Instructions for Treatment How to Access Health Informa tion Online using Patient Portal and [employer] Indication:Physical exam WITHOUT abnormal findings (Renamed from Encounter for routine adult health examination without abnormal findings) Start:12-Jun-2022 Instruction Type:Patient Education Patient Instructions Indication:Obesity (BMI 30.0-34.9) Start:02-Apr-2022 Instruction Type:Provider Instructions for Treatment How to Access Health Informa tion Online using Patient Portal and [employer] Indication:Obesity (BMI 30.0-34.9) Start:02-Apr-2022 Instruction Type:Patient Education Patient Instructions Indication:Physical exam WITHOUT abnormal findings (Renamed from Encounter for routine adult health examination without abnormal findings) Start:23-May-2021 Instruction Type:Provider Instructions for Treatment How to Access Health Informa tion Online using Patient Portal and [employer] Indication:Physical exam WITHOUT abnormal findings (Renamed from Encounter for routine adult health examination without abnormal findings) Start:23-May-2021 Instruction Type:Patient Education Patient Instructions Indication:Nonsmoker Start:25-Mar-2021 Instruction Type:Provider Instructions for Treatment How to Access Health Informa tion Online using Patient Portal and [employer] Apps Indication:Nonsmoker Start:25-Mar-2021 Instruction Type:Patient Education How to access health informa tion online Indication:Well woman exam (Renamed from Encounter for well woman exam) Start:08-Mar-2020 Instruction Type:Patient Education How to access health informa tion online - Detail Indication:Well woman exam (Renamed from Encounter for well woman exam) Start:08-Mar-2020 Instruction Type:Patient Education Patient Instructions Indication:Well woman exam (Renamed from Encounter for well woman exam) Start:08-Mar-2020 Instruction Type:Provider Instructions for Treatment How to access health informa tion online Indication:Pain in right lower leg Start:27-Jun-2019 Instruction Type:Patient Education How to access health informa tion online - Detail Indication:Pain in right lower leg Start:27-Jun-2019 Instruction Type:Patient Education Patient Instructions Indication:Pain in right lower leg Start:27-Jun-2019 Instruction Type:Provider Instructions for Treatment How to access health informa tion online Indication:Physical exam WITHOUT abnormal findings (Renamed from Encounter for routine adult health examination without abnormal findings) Start:20-Jan-2019 Instruction Type:Patient Education How to access health informa tion online - Detail Indication:Physical exam WITHOUT abnormal findings (Renamed from Encounter for routine adult health examination without abnormal findings) Start:20-Jan-2019 Instruction Type:Patient Education Patient Instructions Indication:Physical exam WITHOUT abnormal findings (Renamed from Encounter for routine adult health examination without abnormal findings) Start:20-Jan-2019 Instruction Type:Provider Instructions for Treatment How to access health informa tion online Indication:Left shoulder pain Start:12-Jan-2019 Instruction Type:Patient Education How to access health informa tion online - Detail Indication:Left shoulder pain Start:12-Jan-2019 Instruction Type:Patient Education Patient Instructions Indication:Left shoulder pain Start:12-Jan-2019 Instruction Type:Provider Instructions for Treatment How to access health informa tion online Indication:Screening for HPV (human papillomavirus) (Renamed from Encounter for screening for human papillomavirus (HPV)) Start:22-Oct-2017 Instruction Type:Patient Education How to access health informa tion online - Detail Indication:Screening for HPV (human papillomavirus) (Renamed from Encounter for screening for human papillomavirus (HPV)) Start:22-Oct-2017 Instruction Type:Patient Education Patient Instructions Indication:Screening for HPV (human papillomavirus) (Renamed from Encounter for screening for human papillomavirus (HPV)) Start:22-Oct-2017 Instruction Type:Provider Instructions for Treatment How to access health informa tion online Indication:BMI 33.0-33.9,adult Start:27-Jul-2017 Instruction Type:Patient Education How to access health informa tion online - Detail Indication:BMI 33.0-33.9,adult Start:27-Jul-2017 Instruction Type:Patient Education Patient Instructions Indication:BMI 33.0-33.9,adult Start:27-Jul-2017 Instruction Type:Provider Instructions for Treatment How to access health informa tion online Indication:Left hip pain Start:20-Jul-2017 Instruction Type:Patient Education How to access health informa tion online - Detail Indication:Left hip pain Start:20-Jul-2017 Instruction Type:Patient Education Patient Instructions Indication:Left hip pain Start:20-Jul-2017 Instruction Type:Provider Instructions for Treatment How to access health informa tion online Indication:BMI 36.0-36.9,adult Start:07-May-2017 Instruction Type:Patient Education How to access health informa tion online - Detail Indication:BMI 36.0-36.9,adult Start:07-May-2017 Instruction Type:Patient Education Patient Instructions Indication:BMI 36.0-36.9,adult Start:07-May-2017 Instruction Type:Provider Instructions for Treatment How to access health informa tion online Indication:BMI 34.0-34.9,adult Start:18-Sep-2016 Instruction Type:Patient Education Patient Instructions Indication:BMI 34.0-34.9,adult Start:18-Sep-2016 Instruction Type:Provider Instructions for Treatment How to access health informa tion online Indication:Pneumonia Start:04-Sep-2015 Instruction Type:Patient Education How to access health informa tion online - Detail Indication:Pneumonia Start:04-Sep-2015 Instruction Type:Patient Education Patient Instructions Indication:Pneumonia Start:04-Sep-2015 Instruction Type:Provider Instructions for Treatment [facility]; [facility] Work Phone: Instructions* Name Dates Details Patient Instructions Indication:Physical exam WITHOUT abnormal findings (Renamed from Encounter for routine adult health examination without abnormal findings) Start:12-Jun-2022 Instruction Type:Provider Instructions for Treatment How to Access Health Informa tion Online using Patient Portal and [email or web address] Indication:Physical exam WITHOUT abnormal findings (Renamed from Encounter for routine adult health examination without abnormal findings) Start:12-Jun-2022 Instruction Type:Patient Education Patient Instructions Indication:Obesity (BMI 30.0-34.9) Start:02-Apr-2022 Instruction Type:Provider Instructions for Treatment How to Access Health Informa tion Online using Patient Portal and [employer] Apps Indication:Obesity (BMI 30.0-34.9) Start:02-Apr-2022 Instruction Type:Patient Education Patient Instructions Indication:Physical exam WITHOUT abnormal findings (Renamed from Encounter for routine adult health examination without abnormal findings) Start:23-May-2021 Instruction Type:Provider Instructions for Treatment How to Access Health Informa tion Online using Patient Portal and [employer] Apps Indication:Physical exam WITHOUT abnormal findings (Renamed from Encounter for routine adult health examination without abnormal findings) Start:23-May-2021 Instruction Type:Patient Education Patient Instructions Indication:Nonsmoker Start:25-Mar-2021 Instruction Type:Provider Instructions for Treatment How to Access Health Informa tion Online using Patient Portal and [employer] Apps Indication:Nonsmoker Start:25-Mar-2021 Instruction Type:Patient Education How to access health informa tion online Indication:Well woman exam (Renamed from Encounter for well woman exam) Start:08-Mar-2020 Instruction Type:Patient Education How to access health informa tion online - Detail Indication:Well woman exam (Renamed from Encounter for well woman exam) Start:08-Mar-2020 Instruction Type:Patient Education Patient Instructions Indication:Well woman exam (Renamed from Encounter for well woman exam) Start:08-Mar-2020 Instruction Type:Provider Instructions for Treatment How to access health informa tion online Indication:Pain in right lower leg Start:27-Jun-2019 Instruction Type:Patient Education How to access health informa tion online - Detail Indication:Pain in right lower leg Start:27-Jun-2019 Instruction Type:Patient Education Patient Instructions Indication:Pain in right lower leg Start:27-Jun-2019 Instruction Type:Provider Instructions for Treatment How to access health informa tion online Indication:Physical exam WITHOUT abnormal findings (Renamed from Encounter for routine adult health examination without abnormal findings) Start:20-Jan-2019 Instruction Type:Patient Education How to access health informa tion online - Detail Indication:Physical exam WITHOUT abnormal findings (Renamed from Encounter for routine adult health examination without abnormal findings) Start:20-Jan-2019 Instruction Type:Patient Education Patient Instructions Indication:Physical exam WITHOUT abnormal findings (Renamed from Encounter for routine adult health examination without abnormal findings) Start:20-Jan-2019 Instruction Type:Provider Instructions for Treatment How to access health informa tion online Indication:Left shoulder pain Start:12-Jan-2019 Instruction Type:Patient Education How to access health informa tion online - Detail Indication:Left shoulder pain Start:12-Jan-2019 Instruction Type:Patient Education Patient Instructions Indication:Left shoulder pain Start:12-Jan-2019 Instruction Type:Provider Instructions for Treatment How to access health informa tion online Indication:Screening for HPV (human papillomavirus) (Renamed from Encounter for screening for human papillomavirus (HPV)) Start:22-Oct-2017 Instruction Type:Patient Education How to access health informa tion online - Detail Indication:Screening for HPV (human papillomavirus) (Renamed from Encounter for screening for human papillomavirus (HPV)) Start:22-Oct-2017 Instruction Type:Patient Education Patient Instructions Indication:Screening for HPV (human papillomavirus) (Renamed from Encounter for screening for human papillomavirus (HPV)) Start:22-Oct-2017 Instruction Type:Provider Instructions for Treatment How to access health informa tion online Indication:BMI 33.0-33.9,adult Start:27-Jul-2017 Instruction Type:Patient Education How to access health informa tion online - Detail Indication:BMI 33.0-33.9,adult Start:27-Jul-2017 Instruction Type:Patient Education Patient Instructions Indication:BMI 33.0-33.9,adult Start:27-Jul-2017 Instruction Type:Provider Instructions for Treatment How to access health informa tion online Indication:Left hip pain Start:20-Jul-2017 Instruction Type:Patient Education How to access health informa tion online - Detail Indication:Left hip pain Start:20-Jul-2017 Instruction Type:Patient Education Patient Instructions Indication:Left hip pain Start:20-Jul-2017 Instruction Type:Provider Instructions for Treatment How to access health informa tion online Indication:BMI 36.0-36.9,adult Start:07-May-2017 Instruction Type:Patient Education How to access health informa tion online - Detail Indication:BMI 36.0-36.9,adult Start:07-May-2017 Instruction Type:Patient Education Patient Instructions Indication:BMI 36.0-36.9,adult Start:07-May-2017 Instruction Type:Provider Instructions for Treatment How to access health informa tion online Indication:BMI 34.0-34.9,adult Start:18-Sep-2016 Instruction Type:Patient Education Patient Instructions Indication:BMI 34.0-34.9,adult Start:18-Sep-2016 Instruction Type:Provider Instructions for Treatment How to access health informa tion online Indication:Pneumonia Start:04-Sep-2015 Instruction Type:Patient Education How to access health informa tion online - Detail Indication:Pneumonia Start:04-Sep-2015 Instruction Type:Patient Education Patient Instructions Indication:Pneumonia Start:04-Sep-2015 Instruction Type:Provider Instructions for Treatment [facility]; [facility] Work Phone: Instructions* Name Dates Details How to Access Health Informa tion Online using Patient Portal and [employer] Apps Indication:Nonsmoker Start:11-Mar-2023 Instruction Type:Patient Education Patient Instructions Indication:Nonsmoker Start:11-Mar-2023 Instruction Type:Provider Instructions for Treatment Patient Instructions Indication:Physical exam WITHOUT abnormal findings (Renamed from Encounter for routine adult health examination without abnormal findings) Start:12-Jun-2022 Instruction Type:Provider Instructions for Treatment How to Access Health Informa tion Online using Patient Portal and [employer] Apps Indication:Physical exam WITHOUT abnormal findings (Renamed from Encounter for routine adult health examination without abnormal findings) Start:12-Jun-2022 Instruction Type:Patient Education Patient Instructions Indication:Obesity (BMI 30.0-34.9) Start:02-Apr-2022 Instruction Type:Provider Instructions for Treatment How to Access Health Informa tion Online using Patient Portal and [employer] Apps Indication:Obesity (BMI 30.0-34.9) Start:02-Apr-2022 Instruction Type:Patient Education Patient Instructions Indication:Physical exam WITHOUT abnormal findings (Renamed from Encounter for routine adult health examination without abnormal findings) Start:23-May-2021 Instruction Type:Provider Instructions for Treatment How to Access Health Informa tion Online using Patient Portal and [employer] Apps Indication:Physical exam WITHOUT abnormal findings (Renamed from Encounter for routine adult health examination without abnormal findings) Start:23-May-2021 Instruction Type:Patient Education Patient Instructions Indication:Nonsmoker Start:25-Mar-2021 Instruction Type:Provider Instructions for Treatment How to Access Health Informa tion Online using Patient Portal and [employer] Apps Indication:Nonsmoker Start:25-Mar-2021 Instruction Type:Patient Education How to access health informa tion online Indication:Well woman exam (Renamed from Encounter for well woman exam) Start:08-Mar-2020 Instruction Type:Patient Education How to access health informa tion online - Detail Indication:Well woman exam (Renamed from Encounter for well woman exam) Start:08-Mar-2020 Instruction Type:Patient Education Patient Instructions Indication:Well woman exam (Renamed from Encounter for well woman exam) Start:08-Mar-2020 Instruction Type:Provider Instructions for Treatment How to access health informa tion online Indication:Pain in right lower leg Start:27-Jun-2019 Instruction Type:Patient Education How to access health informa tion online - Detail Indication:Pain in right lower leg Start:27-Jun-2019 Instruction Type:Patient Education Patient Instructions Indication:Pain in right lower leg Start:27-Jun-2019 Instruction Type:Provider Instructions for Treatment How to access health informa tion online Indication:Physical exam WITHOUT abnormal findings (Renamed from Encounter for routine adult health examination without abnormal findings) Start:20-Jan-2019 Instruction Type:Patient Education How to access health informa tion online - Detail Indication:Physical exam WITHOUT abnormal findings (Renamed from Encounter for routine adult health examination without abnormal findings) Start:20-Jan-2019 Instruction Type:Patient Education Patient Instructions Indication:Physical exam WITHOUT abnormal findings (Renamed from Encounter for routine adult health examination without abnormal findings) Start:20-Jan-2019 Instruction Type:Provider Instructions for Treatment How to access health informa tion online Indication:Left shoulder pain Start:12-Jan-2019 Instruction Type:Patient Education How to access health informa tion online - Detail Indication:Left shoulder pain Start:12-Jan-2019 Instruction Type:Patient Education Patient Instructions Indication:Left shoulder pain Start:12-Jan-2019 Instruction Type:Provider Instructions for Treatment How to access health informa tion online Indication:Screening for HPV (human papillomavirus) (Renamed from Encounter for screening for human papillomavirus (HPV)) Start:22-Oct-2017 Instruction Type:Patient Education How to access health informa tion online - Detail Indication:Screening for HPV (human papillomavirus) (Renamed from Encounter for screening for human papillomavirus (HPV)) Start:22-Oct-2017 Instruction Type:Patient Education Patient Instructions Indication:Screening for HPV (human papillomavirus) (Renamed from Encounter for screening for human papillomavirus (HPV)) Start:22-Oct-2017 Instruction Type:Provider Instructions for Treatment How to access health informa tion online Indication:BMI 33.0-33.9,adult Start:27-Jul-2017 Instruction Type:Patient Education How to access health informa tion online - Detail Indication:BMI 33.0-33.9,adult Start:27-Jul-2017 Instruction Type:Patient Education Patient Instructions Indication:BMI 33.0-33.9,adult Start:27-Jul-2017 Instruction Type:Provider Instructions for Treatment How to access health informa tion online Indication:Left hip pain Start:20-Jul-2017 Instruction Type:Patient Education How to access health informa tion online - Detail Indication:Left hip pain Start:20-Jul-2017 Instruction Type:Patient Education Patient Instructions Indication:Left hip pain Start:20-Jul-2017 Instruction Type:Provider Instructions for Treatment How to access health informa tion online Indication:BMI 36.0-36.9,adult Start:07-May-2017 Instruction Type:Patient Education How to access health informa tion online - Detail Indication:BMI 36.0-36.9,adult Start:07-May-2017 Instruction Type:Patient Education Patient Instructions Indication:BMI 36.0-36.9,adult Start:07-May-2017 Instruction Type:Provider Instructions for Treatment How to access health informa tion online Indication:BMI 34.0-34.9,adult Start:18-Sep-2016 Instruction Type:Patient Education Patient Instructions Indication:BMI 34.0-34.9,adult Start:18-Sep-2016 Instruction Type:Provider Instructions for Treatment How to access health informa tion online Indication:Pneumonia Start:04-Sep-2015 Instruction Type:Patient Education How to access health informa tion online - Detail Indication:Pneumonia Start:04-Sep-2015 Instruction Type:Patient Education Patient Instructions Indication:Pneumonia Start:04-Sep-2015 Instruction Type:Provider Instructions for Treatment [facility]; [facility] Work Phone: Instructions* Name Dates Details How to Access Health Informa tion Online using Patient Portal and [email or web address] Indication:Nonsmoker Start:11-Mar-2023 Instruction Type:Patient Education Patient Instructions Indication:Nonsmoker Start:11-Mar-2023 Instruction Type:Provider Instructions for Treatment Patient Instructions Indication:Physical exam WITHOUT abnormal findings (Renamed from Encounter for routine adult health examination without abnormal findings) Start:12-Jun-2022 Instruction Type:Provider Instructions for Treatment How to Access Health Informa tion Online using Patient Portal and [email or web address] Indication:Physical exam WITHOUT abnormal findings (Renamed from Encounter for routine adult health examination without abnormal findings) Start:12-Jun-2022 Instruction Type:Patient Education Patient Instructions Indication:Obesity (BMI 30.0-34.9) Start:02-Apr-2022 Instruction Type:Provider Instructions for Treatment How to Access Health Informa tion Online using Patient Portal and [employer] Apps Indication:Obesity (BMI 30.0-34.9) Start:02-Apr-2022 Instruction Type:Patient Education Patient Instructions Indication:Physical exam WITHOUT abnormal findings (Renamed from Encounter for routine adult health examination without abnormal findings) Start:23-May-2021 Instruction Type:Provider Instructions for Treatment How to Access Health Informa tion Online using Patient Portal and [employer] Apps Indication:Physical exam WITHOUT abnormal findings (Renamed from Encounter for routine adult health examination without abnormal findings) Start:23-May-2021 Instruction Type:Patient Education Patient Instructions Indication:Nonsmoker Start:25-Mar-2021 Instruction Type:Provider Instructions for Treatment How to Access Health Informa tion Online using Patient Portal and [employer] Apps Indication:Nonsmoker Start:25-Mar-2021 Instruction Type:Patient Education How to access health informa tion online Indication:Well woman exam (Renamed from Encounter for well woman exam) Start:08-Mar-2020 Instruction Type:Patient Education How to access health informa tion online - Detail Indication:Well woman exam (Renamed from Encounter for well woman exam) Start:08-Mar-2020 Instruction Type:Patient Education Patient Instructions Indication:Well woman exam (Renamed from Encounter for well woman exam) Start:08-Mar-2020 Instruction Type:Provider Instructions for Treatment How to access health informa tion online Indication:Pain in right lower leg Start:27-Jun-2019 Instruction Type:Patient Education How to access health informa tion online - Detail Indication:Pain in right lower leg Start:27-Jun-2019 Instruction Type:Patient Education Patient Instructions Indication:Pain in right lower leg Start:27-Jun-2019 Instruction Type:Provider Instructions for Treatment How to access health informa tion online Indication:Physical exam WITHOUT abnormal findings (Renamed from Encounter for routine adult health examination without abnormal findings) Start:20-Jan-2019 Instruction Type:Patient Education How to access health informa tion online - Detail Indication:Physical exam WITHOUT abnormal findings (Renamed from Encounter for routine adult health examination without abnormal findings) Start:20-Jan-2019 Instruction Type:Patient Education Patient Instructions Indication:Physical exam WITHOUT abnormal findings (Renamed from Encounter for routine adult health examination without abnormal findings) Start:20-Jan-2019 Instruction Type:Provider Instructions for Treatment How to access health informa tion online Indication:Left shoulder pain Start:12-Jan-2019 Instruction Type:Patient Education How to access health informa tion online - Detail Indication:Left shoulder pain Start:12-Jan-2019 Instruction Type:Patient Education Patient Instructions Indication:Left shoulder pain Start:12-Jan-2019 Instruction Type:Provider Instructions for Treatment How to access health informa tion online Indication:Screening for HPV (human papillomavirus) (Renamed from Encounter for screening for human papillomavirus (HPV)) Start:22-Oct-2017 Instruction Type:Patient Education How to access health informa tion online - Detail Indication:Screening for HPV (human papillomavirus) (Renamed from Encounter for screening for human papillomavirus (HPV)) Start:22-Oct-2017 Instruction Type:Patient Education Patient Instructions Indication:Screening for HPV (human papillomavirus) (Renamed from Encounter for screening for human papillomavirus (HPV)) Start:22-Oct-2017 Instruction Type:Provider Instructions for Treatment How to access health informa tion online Indication:BMI 33.0-33.9,adult Start:27-Jul-2017 Instruction Type:Patient Education How to access health informa tion online - Detail Indication:BMI 33.0-33.9,adult Start:27-Jul-2017 Instruction Type:Patient Education Patient Instructions Indication:BMI 33.0-33.9,adult Start:27-Jul-2017 Instruction Type:Provider Instructions for Treatment How to access health informa tion online Indication:Left hip pain Start:20-Jul-2017 Instruction Type:Patient Education How to access health informa tion online - Detail Indication:Left hip pain Start:20-Jul-2017 Instruction Type:Patient Education Patient Instructions Indication:Left hip pain Start:20-Jul-2017 Instruction Type:Provider Instructions for Treatment How to access health informa tion online Indication:BMI 36.0-36.9,adult Start:07-May-2017 Instruction Type:Patient Education How to access health informa tion online - Detail Indication:BMI 36.0-36.9,adult Start:07-May-2017 Instruction Type:Patient Education Patient Instructions Indication:BMI 36.0-36.9,adult Start:07-May-2017 Instruction Type:Provider Instructions for Treatment How to access health informa tion online Indication:BMI 34.0-34.9,adult Start:18-Sep-2016 Instruction Type:Patient Education Patient Instructions Indication:BMI 34.0-34.9,adult Start:18-Sep-2016 Instruction Type:Provider Instructions for Treatment How to access health informa tion online Indication:Pneumonia Start:04-Sep-2015 Instruction Type:Patient Education How to access health informa tion online - Detail Indication:Pneumonia Start:04-Sep-2015 Instruction Type:Patient Education Patient Instructions Indication:Pneumonia Start:04-Sep-2015 Instruction Type:Provider Instructions for Treatment [facility]; [facility] Work Phone: Instructions* Name Dates Details Patient Instructions Indication:Obesity (BMI 30.0-34.9) Start:22-Apr-2023 Instruction Type:Provider Instructions for Treatment How to Access Health Informa tion Online using Patient Portal and [employer] Apps Indication:Obesity (BMI 30.0-34.9) Start:22-Apr-2023 Instruction Type:Patient Education How to Access Health Informa tion Online using Patient Portal and [employer] Apps Indication:Nonsmoker Start:11-Mar-2023 Instruction Type:Patient Education Patient Instructions Indication:Nonsmoker Start:11-Mar-2023 Instruction Type:Provider Instructions for Treatment Patient Instructions Indication:Physical exam WITHOUT abnormal findings (Renamed from Encounter for routine adult health examination without abnormal findings) Start:12-Jun-2022 Instruction Type:Provider Instructions for Treatment How to Access Health Informa tion Online using Patient Portal and [employer] Apps Indication:Physical exam WITHOUT abnormal findings (Renamed from Encounter for routine adult health examination without abnormal findings) Start:12-Jun-2022 Instruction Type:Patient Education Patient Instructions Indication:Obesity (BMI 30.0-34.9) Start:02-Apr-2022 Instruction Type:Provider Instructions for Treatment How to Access Health Informa tion Online using Patient Portal and [employer] Apps Indication:Obesity (BMI 30.0-34.9) Start:02-Apr-2022 Instruction Type:Patient Education Patient Instructions Indication:Physical exam WITHOUT abnormal findings (Renamed from Encounter for routine adult health examination without abnormal findings) Start:23-May-2021 Instruction Type:Provider Instructions for Treatment How to Access Health Informa tion Online using Patient Portal and [employer] Apps Indication:Physical exam WITHOUT abnormal findings (Renamed from Encounter for routine adult health examination without abnormal findings) Start:23-May-2021 Instruction Type:Patient Education Patient Instructions Indication:Nonsmoker Start:25-Mar-2021 Instruction Type:Provider Instructions for Treatment How to Access Health Informa tion Online using Patient Portal and [employer] Indication:Nonsmoker Start:25-Mar-2021 Instruction Type:Patient Education How to access health informa tion online Indication:Well woman exam (Renamed from Encounter for well woman exam) Start:08-Mar-2020 Instruction Type:Patient Education How to access health informa tion online - Detail Indication:Well woman exam (Renamed from Encounter for well woman exam) Start:08-Mar-2020 Instruction Type:Patient Education Patient Instructions Indication:Well woman exam (Renamed from Encounter for well woman exam) Start:08-Mar-2020 Instruction Type:Provider Instructions for Treatment How to access health informa tion online Indication:Pain in right lower leg Start:27-Jun-2019 Instruction Type:Patient Education How to access health informa tion online - Detail Indication:Pain in right lower leg Start:27-Jun-2019 Instruction Type:Patient Education Patient Instructions Indication:Pain in right lower leg Start:27-Jun-2019 Instruction Type:Provider Instructions for Treatment How to access health informa tion online Indication:Physical exam WITHOUT abnormal findings (Renamed from Encounter for routine adult health examination without abnormal findings) Start:20-Jan-2019 Instruction Type:Patient Education How to access health informa tion online - Detail Indication:Physical exam WITHOUT abnormal findings (Renamed from Encounter for routine adult health examination without abnormal findings) Start:20-Jan-2019 Instruction Type:Patient Education Patient Instructions Indication:Physical exam WITHOUT abnormal findings (Renamed from Encounter for routine adult health examination without abnormal findings) Start:20-Jan-2019 Instruction Type:Provider Instructions for Treatment How to access health informa tion online Indication:Left shoulder pain Start:12-Jan-2019 Instruction Type:Patient Education How to access health informa tion online - Detail Indication:Left shoulder pain Start:12-Jan-2019 Instruction Type:Patient Education Patient Instructions Indication:Left shoulder pain Start:12-Jan-2019 Instruction Type:Provider Instructions for Treatment How to access health informa tion online Indication:Screening for HPV (human papillomavirus) (Renamed from Encounter for screening for human papillomavirus (HPV)) Start:22-Oct-2017 Instruction Type:Patient Education How to access health informa tion online - Detail Indication:Screening for HPV (human papillomavirus) (Renamed from Encounter for screening for human papillomavirus (HPV)) Start:22-Oct-2017 Instruction Type:Patient Education Patient Instructions Indication:Screening for HPV (human papillomavirus) (Renamed from Encounter for screening for human papillomavirus (HPV)) Start:22-Oct-2017 Instruction Type:Provider Instructions for Treatment How to access health informa tion online Indication:BMI 33.0-33.9,adult Start:27-Jul-2017 Instruction Type:Patient Education How to access health informa tion online - Detail Indication:BMI 33.0-33.9,adult Start:27-Jul-2017 Instruction Type:Patient Education Patient Instructions Indication:BMI 33.0-33.9,adult Start:27-Jul-2017 Instruction Type:Provider Instructions for Treatment How to access health informa tion online Indication:Left hip pain Start:20-Jul-2017 Instruction Type:Patient Education How to access health informa tion online - Detail Indication:Left hip pain Start:20-Jul-2017 Instruction Type:Patient Education Patient Instructions Indication:Left hip pain Start:20-Jul-2017 Instruction Type:Provider Instructions for Treatment How to access health informa tion online Indication:BMI 36.0-36.9,adult Start:07-May-2017 Instruction Type:Patient Education How to access health informa tion online - Detail Indication:BMI 36.0-36.9,adult Start:07-May-2017 Instruction Type:Patient Education Patient Instructions Indication:BMI 36.0-36.9,adult Start:07-May-2017 Instruction Type:Provider Instructions for Treatment How to access health informa tion online Indication:BMI 34.0-34.9,adult Start:18-Sep-2016 Instruction Type:Patient Education Patient Instructions Indication:BMI 34.0-34.9,adult Start:18-Sep-2016 Instruction Type:Provider Instructions for Treatment How to access health informa tion online Indication:Pneumonia Start:04-Sep-2015 Instruction Type:Patient Education How to access health informa tion online - Detail Indication:Pneumonia Start:04-Sep-2015 Instruction Type:Patient Education Patient Instructions Indication:Pneumonia Start:04-Sep-2015 Instruction Type:Provider Instructions for Treatment [facility]; [facility] Work Phone: Family History No Family History Records FoundUnknown Family Member Name Dates Details Brother 1 Status:Active Brother 2 Status:Active Family Members In General Comments:Great Grandmother - Stomach CA , other Great Grandmother Bowel Obstruction/Sepsis, other great grandparents include CVA, and Kidney Ca Status:Active Father Comments:[place] at 58 yo, h /o appendectomy, Back surgerues, TERP - no ca, Bilat TKR, nonsmoker. Status:Active Maternal Grandfather Comments:Cardiac, h/o cholec ystectomy, Cancer - ureter, h/o kidney removed dt ca in ureter Status:Active Maternal Grandmother Comments:Ca - uterine and h/ o hysterectomy, h/o cholecystectomy, Essential Tremor, DM2, AZA, Status:Active Mother Comments:HTN, Corneal Degene ration, Aortic Aneurism, h/o cholecystectomy, Cataracts and h/o back sx, and bladder suspension Status:Active Paternal Grandfather Comments:Cardiac, artery rup ture in leg -->sepsis Status:Active Paternal Grandmother Comments:HTN, DM2, Cardiac, Macular Degeneration, AZA, Lung Ca Status:Active Sister 1 Comments:older Status:Active Sister 2 Status:Active Unknown Family Member Name Dates Details Brother 1 Status:Active Brother 2 Status:Active Family Members In General Comments:Great Grandmother - Stomach CA , other Great Grandmother Bowel Obstruction/Sepsis, other great grandparents include CVA, and Kidney Ca Status:Active Father Comments:[place] at 58 yo, h /o appendectomy, Back surgerues, TERP - no ca, Bilat TKR, nonsmoker. Status:Active Maternal Grandfather Comments:Cardiac, h/o cholec ystectomy, Cancer - ureter, h/o kidney removed dt ca in ureter Status:Active Maternal Grandmother Comments:Ca - uterine and h/ o hysterectomy, h/o cholecystectomy, Essential Tremor, DM2, AZA, Status:Active Mother Comments:HTN, Corneal Degene ration, Aortic Aneurism, h/o cholecystectomy, Cataracts and h/o back sx, and bladder suspension Status:Active Paternal Grandfather Comments:Cardiac, artery rup ture in leg -->sepsis Status:Active Paternal Grandmother Comments:HTN, DM2, Cardiac, Macular Degeneration, AZA, Lung Ca Status:Active Sister 1 Comments:older Status:Active Sister 2 Status:Active Unknown Family Member Name Dates Details Brother 1 Status:Active Brother 2 Status:Active Family Members In General Comments:Great Grandmother - Stomach CA , other Great Grandmother Bowel Obstruction/Sepsis, other great grandparents include CVA, and Kidney Ca Status:Active Father Comments:[place] 58 yo, h /o appendectomy, Back surgerues, TERP - no ca, Bilat TKR, nonsmoker. Status:Active Maternal Grandfather Comments:Cardiac, h/o cholec ystectomy, Cancer - ureter, h/o kidney removed dt ca in ureter Status:Active Maternal Grandmother Comments:Ca - uterine and h/ o hysterectomy, h/o cholecystectomy, Essential Tremor, DM2, AZA, Status:Active Mother Comments:HTN, Corneal Degene ration, Aortic Aneurism, h/o cholecystectomy, Cataracts and h/o back sx, and bladder suspension Status:Active Paternal Grandfather Comments:Cardiac, artery rup ture in leg -->sepsis Status:Active Paternal Grandmother Comments:HTN, DM2, Cardiac, Macular Degeneration, AZA, Lung Ca Status:Active Sister 1 Comments:older Status:Active Sister 2 Status:Active Unknown Family Member Name Dates Details Brother 1 Status:Active Brother 2 Status:Active Family Members In General Comments:Great Grandmother - [place] , other Great Grandmother Bowel Obstruction/Sepsis, other great grandparents include CVA, and Kidney Ca Status:Active Father Comments:[place] 58 yo, h /o appendectomy, Back surgerues, TERP - no ca, Bilat TKR, nonsmoker. Status:Active Maternal Grandfather Comments:Cardiac, h/o cholec ystectomy, Cancer - ureter, h/o kidney removed dt ca in ureter Status:Active Maternal Grandmother Comments:Ca - uterine and h/ o hysterectomy, h/o cholecystectomy, Essential Tremor, DM2, AZA, Status:Active Mother Comments:HTN, Corneal Degene ration, Aortic Aneurism, h/o cholecystectomy, Cataracts and h/o back sx, and bladder suspension Status:Active Paternal Grandfather Comments:Cardiac, artery rup ture in leg -->sepsis Status:Active Paternal Grandmother Comments:HTN, DM2, Cardiac, Macular Degeneration, AZA, Lung Ca Status:Active Sister 1 Comments:older Status:Active Sister 2 Status:Active Unknown Family Member Name Dates Details Brother 1 Status:Active Brother 2 Status:Active Family Members In General Comments:Great Grandmother - [place] , other Great Grandmother Bowel Obstruction/Sepsis, other great grandparents include CVA, and Kidney Ca Status:Active Father Comments:[place] 58 yo, h /o appendectomy, Back surgerues, TERP - no ca, Bilat TKR, nonsmoker. Status:Active Maternal Grandfather Comments:Cardiac, h/o cholec ystectomy, Cancer - ureter, h/o kidney removed dt ca in ureter Status:Active Maternal Grandmother Comments:Ca - uterine and h/ o hysterectomy, h/o cholecystectomy, Essential Tremor, DM2, AZA, Status:Active Mother Comments:HTN, Corneal Degene ration, Aortic Aneurism, h/o cholecystectomy, Cataracts and h/o back sx, and bladder suspension Status:Active Paternal Grandfather Comments:Cardiac, artery rup ture in leg -->sepsis Status:Active Paternal Grandmother Comments:HTN, DM2, Cardiac, Macular Degeneration, AZA, Lung Ca Status:Active Sister 1 Comments:older Status:Active Sister 2 Status:Active Unknown Family Member Name Dates Details Brother 1 Status:Active Brother 2 Status:Active Family Members In General Comments:Great Grandmother - [place] , other Great Grandmother Bowel Obstruction/Sepsis, other great grandparents include CVA, and Kidney Ca Status:Active Father Comments:[place] 58 yo, h /o appendectomy, Back surgerues, TERP - no ca, Bilat TKR, nonsmoker. Status:Active Maternal Grandfather Comments:Cardiac, h/o cholec ystectomy, Cancer - ureter, h/o kidney removed dt ca in ureter Status:Active Maternal Grandmother Comments:Ca - uterine and h/ o hysterectomy, h/o cholecystectomy, Essential Tremor, DM2, AZA, Status:Active Mother Comments:HTN, Corneal Degene ration, Aortic Aneurism, h/o cholecystectomy, Cataracts and h/o back sx, and bladder suspension Status:Active Paternal Grandfather Comments:Cardiac, artery rup ture in leg -->sepsis Status:Active Paternal Grandmother Comments:HTN, DM2, Cardiac, Macular Degeneration, AZA, Lung Ca Status:Active Sister 1 Comments:older Status:Active Sister 2 Status:Active Unknown Family Member Name Dates Details Brother 1 Status:Active Brother 2 Status:Active Family Members In General Comments:Great Grandmother - [place] , other Great Grandmother Bowel Obstruction/Sepsis, other great grandparents include CVA, and Kidney Ca Status:Active Father Comments:[place] 58 yo, h /o appendectomy, Back surgerues, TERP - no ca, Bilat TKR, nonsmoker. Status:Active Maternal Grandfather Comments:Cardiac, h/o cholec ystectomy, Cancer - ureter, h/o kidney removed dt ca in ureter Status:Active Maternal Grandmother Comments:Ca - uterine and h/ o hysterectomy, h/o cholecystectomy, Essential Tremor, DM2, AZA, Status:Active Mother Comments:HTN, Corneal Degene ration, Aortic Aneurism, h/o cholecystectomy, Cataracts and h/o back sx, and bladder suspension Status:Active Paternal Grandfather Comments:Cardiac, artery rup ture in leg -->sepsis Status:Active Paternal Grandmother Comments:HTN, DM2, Cardiac, Macular Degeneration, AZA, Lung Ca Status:Active Sister 1 Comments:older Status:Active Sister 2 Status:Active Unknown Family Member Name Dates Details Brother 1 Comments:Margarita Valentin Status:Active Brother 2 Status:Active Family Members In General Comments:Great Grandmother - [place] , other Great Grandmother Bowel Obstruction/Sepsis, other great grandparents include CVA, and Kidney Ca Status:Active Father Comments:[place] 58 yo, h /o appendectomy, Back surgerues, TERP - no ca, Bilat TKR, nonsmoker. Status:Active Maternal Grandfather Comments:Cardiac, h/o cholec ystectomy, Cancer - ureter, h/o kidney removed dt ca in ureter Status:Active Maternal Grandmother Comments:Ca - uterine and h/ o hysterectomy, h/o cholecystectomy, Essential Tremor, DM2, AZA, Status:Active Mother Comments:HTN, Corneal Degene ration, Aortic Aneurism, h/o cholecystectomy, Cataracts and h/o back sx, and bladder suspension Status:Active Paternal Grandfather Comments:Cardiac, artery rup ture in leg -->sepsis Status:Active Paternal Grandmother Comments:HTN, DM2, Cardiac, Macular Degeneration, AZA, Lung Ca Status:Active Sister 1 Comments:older Status:Active Sister 2 Status:Active Unknown Family Member Name Dates Details Brother 1 Comments:Margarita Valentin Status:Active Brother 2 Status:Active Family Members In General Comments:Great Grandmother - [place] , other Great Grandmother Bowel Obstruction/Sepsis, other great grandparents include CVA, and Kidney Ca Status:Active Father Comments:[place] 58 yo, h /o appendectomy, Back surgerues, TERP - no ca, Bilat TKR, nonsmoker. Status:Active Maternal Grandfather Comments:Cardiac, h/o cholec ystectomy, Cancer - ureter, h/o kidney removed dt ca in ureter Status:Active Maternal Grandmother Comments:Ca - uterine and h/ o hysterectomy, h/o cholecystectomy, Essential Tremor, DM2, AZA, Status:Active Mother Comments:HTN, Corneal Degene ration, Aortic Aneurism, h/o cholecystectomy, Cataracts and h/o back sx, and bladder suspension Status:Active Paternal Grandfather Comments:Cardiac, artery rup ture in leg -->sepsis Status:Active Paternal Grandmother Comments:HTN, DM2, Cardiac, Macular Degeneration, AZA, Lung Ca Status:Active Sister 1 Comments:older Status:Active Sister 2 Status:Active Unknown Family Member Name Dates Details Brother 1 Status:Active Brother 2 Status:Active Family Members In General Comments:Great Grandmother - [place] , other Great Grandmother Bowel Obstruction/Sepsis, other great grandparents include CVA, and Kidney Ca Status:Active Father Comments[place] 58 yo, h /o appendectomy, Back surgerues, TERP - no ca, Bilat TKR, nonsmoker. Status:Active Maternal Grandfather Comments:Cardiac, h/o cholec ystectomy, Cancer - ureter, h/o kidney removed dt ca in ureter Status:Active Maternal Grandmother Comments:Ca - uterine and h/ o hysterectomy, h/o cholecystectomy, Essential Tremor, DM2, AZA, Status:Active Mother Comments:HTN, Corneal Degene ration, Aortic Aneurism, h/o cholecystectomy, Cataracts and h/o back sx, and bladder suspension Status:Active Paternal Grandfather Comments:Cardiac, artery rup ture in leg -->sepsis Status:Active Paternal Grandmother Comments:HTN, DM2, Cardiac, Macular Degeneration, AZA, Lung Ca Status:Active Sister 1 Comments:older Status:Active Sister 2 Status:Active Unknown Family Member Name Dates Details Brother 1 Comments:Margarita Valentin Status:Active Brother 2 Status:Active Family Members In General Comments:Great Grandmother - [place] , other Great Grandmother Bowel Obstruction/Sepsis, other great grandparents include CVA, and Kidney Ca Status:Active Father Comments:[place] 58 yo, h /o appendectomy, Back surgerues, TERP - no ca, Bilat TKR, nonsmoker. Status:Active Maternal Grandfather Comments:Cardiac, h/o cholec ystectomy, Cancer - ureter, h/o kidney removed dt ca in ureter Status:Active Maternal Grandmother Comments:Ca - uterine and h/ o hysterectomy, h/o cholecystectomy, Essential Tremor, DM2, AZA, Status:Active Mother Comments:HTN, Corneal Degene ration, Aortic Aneurism, h/o cholecystectomy, Cataracts and h/o back sx, and bladder suspension Status:Active Paternal Grandfather Comments:Cardiac, artery rup ture in leg -->sepsis Status:Active Paternal Grandmother Comments:HTN, DM2, Cardiac, Macular Degeneration, AZA, Lung Ca Status:Active Sister 1 Comments:older Status:Active Sister 2 Status:Active Unknown Family Member Name Dates Details Brother 1 Status:Active Brother 2 Status:Active Family Members In General Comments:Great Grandmother - [place] , other Great Grandmother Bowel Obstruction/Sepsis, other great grandparents include CVA, and Kidney Ca Status:Active Father Comments:[place] 58 yo, h /o appendectomy, Back surgerues, TERP - no ca, Bilat TKR, nonsmoker. Status:Active Maternal Grandfather Comments:Cardiac, h/o cholec ystectomy, Cancer - ureter, h/o kidney removed dt ca in ureter Status:Active Maternal Grandmother Comments:Ca - uterine and h/ o hysterectomy, h/o cholecystectomy, Essential Tremor, DM2, AZA, Status:Active Mother Comments:HTN, Corneal Degene ration, Aortic Aneurism, h/o cholecystectomy, Cataracts and h/o back sx, and bladder suspension Status:Active Paternal Grandfather Comments:Cardiac, artery rup ture in leg -->sepsis Status:Active Paternal Grandmother Comments:HTN, DM2, Cardiac, Macular Degeneration, AZA, Lung Ca Status:Active Sister 1 Comments:older Status:Active Sister 2 Status:Active Unknown Family Member Name Dates Details Brother 1 Status:Active Brother 2 Status:Active Family Members In General Comments:Great Grandmother - [place] , other Great Grandmother Bowel Obstruction/Sepsis, other great grandparents include CVA, and Kidney Ca Status:Active Father Comments:[place] 58 yo, h /o appendectomy, Back surgerues, TERP - no ca, Bilat TKR, nonsmoker. Status:Active Maternal Grandfather Comments:Cardiac, h/o cholec ystectomy, Cancer - ureter, h/o kidney removed dt ca in ureter Status:Active Maternal Grandmother Comments:Ca - uterine and h/ o hysterectomy, h/o cholecystectomy, Essential Tremor, DM2, AZA, Status:Active Mother Comments:HTN, Corneal Degene ration, Aortic Aneurism, h/o cholecystectomy, Cataracts and h/o back sx, and bladder suspension Status:Active Paternal Grandfather Comments:Cardiac, artery rup ture in leg -->sepsis Status:Active Paternal Grandmother Comments:HTN, DM2, Cardiac, Macular Degeneration, AZA, Lung Ca Status:Active Sister 1 Comments:older Status:Active Sister 2 Status:Active Unknown Family Member Name Dates Details Brother 1 Status:Active Brother 2 Status:Active Family Members In General Comments:Great Grandmother - [place] , other Great Grandmother Bowel Obstruction/Sepsis, other great grandparents include CVA, and Kidney Ca Status:Active Father Comments:[place] 58 yo, h /o appendectomy, Back surgerues, TERP - no ca, Bilat TKR, nonsmoker. Status:Active Maternal Grandfather Comments:Cardiac, h/o cholec ystectomy, Cancer - ureter, h/o kidney removed dt ca in ureter Status:Active Maternal Grandmother Comments:Ca - uterine and h/ o hysterectomy, h/o cholecystectomy, Essential Tremor, DM2, AZA, Status:Active Mother Comments:HTN, Corneal Degene ration, Aortic Aneurism, h/o cholecystectomy, Cataracts and h/o back sx, and bladder suspension Status:Active Paternal Grandfather Comments:Cardiac, artery rup ture in leg -->sepsis Status:Active Paternal Grandmother Comments:HTN, DM2, Cardiac, Macular Degeneration, AZA, Lung Ca Status:Active Sister 1 Comments:older Status:Active Sister 2 Status:Active Unknown Family Member Name Dates Details Brother 1 Comments:Margarita Valentin Status:Active Brother 2 Status:Active Family Members In General Comments:Great Grandmother - [place] , other Great Grandmother Bowel Obstruction/Sepsis, other great grandparents include CVA, and Kidney Ca Status:Active Father Comments:[place] 58 yo, h /o appendectomy, Back surgerues, TERP - no ca, Bilat TKR, nonsmoker. Status:Active Maternal Grandfather Comments:Cardiac, h/o cholec ystectomy, Cancer - ureter, h/o kidney removed dt ca in ureter Status:Active Maternal Grandmother Comments:Ca - uterine and h/ o hysterectomy, h/o cholecystectomy, Essential Tremor, DM2, AZA, Status:Active Mother Comments:HTN, Corneal Degene ration, Aortic Aneurism, h/o cholecystectomy, Cataracts and h/o back sx, and bladder suspension Status:Active Paternal Grandfather Comments:Cardiac, artery rup ture in leg -->sepsis Status:Active Paternal Grandmother Comments:HTN, DM2, Cardiac, Macular Degeneration, AZA, Lung Ca Status:Active Sister 1 Comments:older Status:Active Sister 2 Status:Active Unknown Family Member Name Dates Details Brother 1 Comments:Margarita Valentin Status:Active Brother 2 Status:Active Family Members In General Comments:Great Grandmother - [place] , other Great Grandmother Bowel Obstruction/Sepsis, other great grandparents include CVA, and Kidney Ca Status:Active Father Comments:[place] 58 yo, h /o appendectomy, Back surgerues, TERP - no ca, Bilat TKR, nonsmoker. Status:Active Maternal Grandfather Comments:Cardiac, h/o cholec ystectomy, Cancer - ureter, h/o kidney removed dt ca in ureter Status:Active Maternal Grandmother Comments:Ca - uterine and h/ o hysterectomy, h/o cholecystectomy, Essential Tremor, DM2, AZA, Status:Active Mother Comments:HTN, Corneal Degene ration, Aortic Aneurism, h/o cholecystectomy, Cataracts and h/o back sx, and bladder suspension Status:Active Paternal Grandfather Comments:Cardiac, artery rup ture in leg -->sepsis Status:Active Paternal Grandmother Comments:HTN, DM2, Cardiac, Macular Degeneration, AZA, Lung Ca Status:Active Sister 1 Comments:older Status:Active Sister 2 Status:Active Unknown Family Member Name Dates Details Brother 1 Comments:Margarita Valentin Status:Active Brother 2 Status:Active Family Members In General Comments:Great Grandmother - [place] , other Great Grandmother Bowel Obstruction/Sepsis, other great grandparents include CVA, and Kidney Ca Status:Active Father Comments:[place] 58 yo, h /o appendectomy, Back surgerues, TERP - no ca, Bilat TKR, nonsmoker. Status:Active Maternal Grandfather Comments:Cardiac, h/o cholec ystectomy, Cancer - ureter, h/o kidney removed dt ca in ureter Status:Active Maternal Grandmother Comments:Ca - uterine and h/ o hysterectomy, h/o cholecystectomy, Essential Tremor, DM2, AZA, Status:Active Mother Comments:HTN, Corneal Degene ration, Aortic Aneurism, h/o cholecystectomy, Cataracts and h/o back sx, and bladder suspension Status:Active Paternal Grandfather Comments:Cardiac, artery rup ture in leg -->sepsis Status:Active Paternal Grandmother Comments:HTN, DM2, Cardiac, Macular Degeneration, AZA, Lung Ca Status:Active Sister 1 Comments:older Status:Active Sister 2 Status:Active Unknown Family Member Name Dates Details Brother 1 Comments:Margarita Valentin Status:Active Brother 2 Status:Active Family Members In General Comments:Great Grandmother - [place] , other Great Grandmother Bowel Obstruction/Sepsis, other great grandparents include CVA, and Kidney Ca Status:Active Father Comments:[place] 58 yo, h /o appendectomy, Back surgerues, TERP - no ca, Bilat TKR, nonsmoker. Status:Active Maternal Grandfather Comments:Cardiac, h/o cholec ystectomy, Cancer - ureter, h/o kidney removed dt ca in ureter Status:Active Maternal Grandmother Comments:Ca - uterine and h/ o hysterectomy, h/o cholecystectomy, Essential Tremor, DM2, AZA, Status:Active Mother Comments:HTN, Corneal Degene ration, Aortic Aneurism, h/o cholecystectomy, Cataracts and h/o back sx, and bladder suspension Status:Active Paternal Grandfather Comments:Cardiac, artery rup ture in leg -->sepsis Status:Active Paternal Grandmother Comments:HTN, DM2, Cardiac, Macular Degeneration, AZA, Lung Ca Status:Active Sister 1 Comments:older Status:Active Sister 2 Status:Active Unknown Family Member Name Dates Details Brother 1 Comments:Margarita Valentin Status:Active Brother 2 Status:Active Family Members In General Comments:Great Grandmother - [place] , other Great Grandmother Bowel Obstruction/Sepsis, other great grandparents include CVA, and Kidney Ca Status:Active Father Comments:[place] 58 yo, h /o appendectomy, Back surgerues, TERP - no ca, Bilat TKR, nonsmoker. Status:Active Maternal Grandfather Comments:Cardiac, h/o cholec ystectomy, Cancer - ureter, h/o kidney removed dt ca in ureter Status:Active Maternal Grandmother Comments:Ca - uterine and h/ o hysterectomy, h/o cholecystectomy, Essential Tremor, DM2, AZA, Status:Active Mother Comments:HTN, Corneal Degene ration, Aortic Aneurism, h/o cholecystectomy, Cataracts and h/o back sx, and bladder suspension Status:Active Paternal Grandfather Comments:Cardiac, artery rup ture in leg -->sepsis Status:Active Paternal Grandmother Comments:HTN, DM2, Cardiac, Macular Degeneration, AZA, Lung Ca Status:Active Sister 1 Comments:older Status:Active Sister 2 Status:Active Unknown Family Member Name Dates Details Brother 1 Comments:Margarita Valentin Status:Active Brother 2 Status:Active Family Members In General Comments:Great Grandmother - [place] , other Great Grandmother Bowel Obstruction/Sepsis, other great grandparents include CVA, and Kidney Ca Status:Active Father Comments:[place] 58 yo, h /o appendectomy, Back surgerues, TERP - no ca, Bilat TKR, nonsmoker. Status:Active Maternal Grandfather Comments:Cardiac, h/o cholec ystectomy, Cancer - ureter, h/o kidney removed dt ca in ureter Status:Active Maternal Grandmother Comments:Ca - uterine and h/ o hysterectomy, h/o cholecystectomy, Essential Tremor, DM2, AZA, Status:Active Mother Comments:HTN, Corneal Degene ration, Aortic Aneurism, h/o cholecystectomy, Cataracts and h/o back sx, and bladder suspension Status:Active Paternal Grandfather Comments:Cardiac, artery rup ture in leg -->sepsis Status:Active Paternal Grandmother Comments:HTN, DM2, Cardiac, Macular Degeneration, AZA, Lung Ca Status:Active Sister 1 Comments:older Status:Active Sister 2 Status:Active Unknown Family Member Name Dates Details Brother 1 Comments:Margarita Valentin Status:Active Brother 2 Status:Active Family Members In General Comments:Great Grandmother - [place] , other Great Grandmother Bowel Obstruction/Sepsis, other great grandparents include CVA, and Kidney Ca Status:Active Father Comments:[place] 58 yo, h /o appendectomy, Back surgerues, TERP - no ca, Bilat TKR, nonsmoker. Status:Active Maternal Grandfather Comments:Cardiac, h/o cholec ystectomy, Cancer - ureter, h/o kidney removed dt ca in ureter Status:Active Maternal Grandmother Comments:Ca - uterine and h/ o hysterectomy, h/o cholecystectomy, Essential Tremor, DM2, AZA, Status:Active Mother Comments:HTN, Corneal Degene ration, Aortic Aneurism, h/o cholecystectomy, Cataracts and h/o back sx, and bladder suspension Status:Active Paternal Grandfather Comments:Cardiac, artery rup ture in leg -->sepsis Status:Active Paternal Grandmother Comments:HTN, DM2, Cardiac, Macular Degeneration, AZA, Lung Ca Status:Active Sister 1 Comments:older Status:Active Sister 2 Status:Active Unknown Family Member Name Dates Details Brother 1 Comments:Margarita Valentin Status:Active Brother 2 Status:Active Family Members In General Comments:Great Grandmother - [place] , other Great Grandmother Bowel Obstruction/Sepsis, other great grandparents include CVA, and Kidney Ca Status:Active Father Comments:[place] 58 yo, h /o appendectomy, Back surgerues, TERP - no ca, Bilat TKR, nonsmoker. Status:Active Maternal Grandfather Comments:Cardiac, h/o cholec ystectomy, Cancer - ureter, h/o kidney removed dt ca in ureter Status:Active Maternal Grandmother Comments:Ca - uterine and h/ o hysterectomy, h/o cholecystectomy, Essential Tremor, DM2, AZA, Status:Active Mother Comments:HTN, Corneal Degene ration, Aortic Aneurism, h/o cholecystectomy, Cataracts and h/o back sx, and bladder suspension Status:Active Paternal Grandfather Comments:Cardiac, artery rup ture in leg -->sepsis Status:Active Paternal Grandmother Comments:HTN, DM2, Cardiac, Macular Degeneration, AZA, Lung Ca Status:Active Sister 1 Comments:older Status:Active Sister 2 Status:Active Unknown Family Member Name Dates Details Brother 1 Comments:Margarita Valentin Status:Active Brother 2 Status:Active Family Members In General Comments:Great Grandmother - [place] , other Great Grandmother Bowel Obstruction/Sepsis, other great grandparents include CVA, and Kidney Ca Status:Active Father Comments:[place] 58 yo, h /o appendectomy, Back surgerues, TERP - no ca, Bilat TKR, nonsmoker. Status:Active Maternal Grandfather Comments:Cardiac, h/o cholec ystectomy, Cancer - ureter, h/o kidney removed dt ca in ureter Status:Active Maternal Grandmother Comments:Ca - uterine and h/ o hysterectomy, h/o cholecystectomy, Essential Tremor, DM2, AZA, Status:Active Mother Comments:HTN, Corneal Degene ration, Aortic Aneurism, h/o cholecystectomy, Cataracts and h/o back sx, and bladder suspension Status:Active Paternal Grandfather Comments:Cardiac, artery rup ture in leg -->sepsis Status:Active Paternal Grandmother Comments:HTN, DM2, Cardiac, Macular Degeneration, AZA, Lung Ca Status:Active Sister 1 Comments:older Status:Active Sister 2 Status:Active Unknown Family Member Name Dates Details Brother 1 Comments:Margarita Valentin Status:Active Brother 2 Status:Active Family Members In General Comments:Great Grandmother - [place] , other Great Grandmother Bowel Obstruction/Sepsis, other great grandparents include CVA, and Kidney Ca Status:Active Father Comments:[place] 58 yo, h /o appendectomy, Back surgerues, TERP - no ca, Bilat TKR, nonsmoker. Status:Active Maternal Grandfather Comments:Cardiac, h/o cholec ystectomy, Cancer - ureter, h/o kidney removed dt ca in ureter Status:Active Maternal Grandmother Comments:Ca - uterine and h/ o hysterectomy, h/o cholecystectomy, Essential Tremor, DM2, AZA, Status:Active Mother Comments:HTN, Corneal Degene ration, Aortic Aneurism, h/o cholecystectomy, Cataracts and h/o back sx, and bladder suspension Status:Active Paternal Grandfather Comments:Cardiac, artery rup ture in leg -->sepsis Status:Active Paternal Grandmother Comments:HTN, DM2, Cardiac, Macular Degeneration, AZA, Lung Ca Status:Active Sister 1 Comments:older Status:Active Sister 2 Status:Active Relationship Condition Age at Onset Recorded Date/T leticia mother Hypertension Unknown father Hypertension Unknown Cardiac disease Unknown Instructions Name Dates Details Screening for HPV (human pap illomavirus) (Renamed from Encounter for screening for human papillomavirus (HPV)) : How to access health information online Indication:Screening for HPV (human papillomavirus) (Renamed from Encounter for screening for human papillomavirus (HPV)) Screening for HPV (human pap illomavirus) (Renamed from Encounter for screening for human papillomavirus (HPV)) : How to access health information online - Detail Indication:Screening for HPV (human papillomavirus) (Renamed from Encounter for screening for human papillomavirus (HPV)) Screening for HPV (human pap illomavirus) (Renamed from Encounter for screening for human papillomavirus (HPV)) : Patient Instructions Indication:Screening for HPV (human papillomavirus) (Renamed from Encounter for screening for human papillomavirus (HPV)) BMI 33.0-33.9,adult : How to access health information online Indication:BMI 33.0-33.9,adult BMI 33.0-33.9,adult : How to access health information online - Detail Indication:BMI 33.0-33.9,adult BMI 33.0-33.9,adult : Patien t Instructions Indication:BMI 33.0-33.9,adult Left hip pain : How to acces s health information online Indication:Left hip pain Left hip pain : How to acces s health information online - Detail Indication:Left hip pain Left hip pain : Patient Inst ructions Indication:Left hip pain BMI 36.0-36.9,adult : How to access health information online Indication:BMI 36.0-36.9,adult BMI 36.0-36.9,adult : How to access health information online - Detail Indication:BMI 36.0-36.9,adult BMI 36.0-36.9,adult : Patien t Instructions Indication:BMI 36.0-36.9,adult BMI 34.0-34.9,adult : How to access health information online Indication:BMI 34.0-34.9,adult BMI 34.0-34.9,adult : Patien t Instructions Indication:BMI 34.0-34.9,adult Pneumonia : How to access he alth information online Indication:Pneumonia Pneumonia : How to access he alth information online - Detail Indication:Pneumonia Pneumonia : Patient Instruct ions Indication:Pneumonia Name Dates Details Screening for HPV (human pap illomavirus) (Renamed from Encounter for screening for human papillomavirus (HPV)) : How to access health information online Indication:Screening for HPV (human papillomavirus) (Renamed from Encounter for screening for human papillomavirus (HPV)) Screening for HPV (human pap illomavirus) (Renamed from Encounter for screening for human papillomavirus (HPV)) : How to access health information online - Detail Indication:Screening for HPV (human papillomavirus) (Renamed from Encounter for screening for human papillomavirus (HPV)) Screening for HPV (human pap illomavirus) (Renamed from Encounter for screening for human papillomavirus (HPV)) : Patient Instructions Indication:Screening for HPV (human papillomavirus) (Renamed from Encounter for screening for human papillomavirus (HPV)) BMI 33.0-33.9,adult : How to access health information online Indication:BMI 33.0-33.9,adult BMI 33.0-33.9,adult : How to access health information online - Detail Indication:BMI 33.0-33.9,adult BMI 33.0-33.9,adult : Patien t Instructions Indication:BMI 33.0-33.9,adult Left hip pain : How to acces s health information online Indication:Left hip pain Left hip pain : How to acces s health information online - Detail Indication:Left hip pain Left hip pain : Patient Inst ructions Indication:Left hip pain BMI 36.0-36.9,adult : How to access health information online Indication:BMI 36.0-36.9,adult BMI 36.0-36.9,adult : How to access health information online - Detail Indication:BMI 36.0-36.9,adult BMI 36.0-36.9,adult : Patien t Instructions Indication:BMI 36.0-36.9,adult BMI 34.0-34.9,adult : How to access health information online Indication:BMI 34.0-34.9,adult BMI 34.0-34.9,adult : Patien t Instructions Indication:BMI 34.0-34.9,adult Pneumonia : How to access he alth information online Indication:Pneumonia Pneumonia : How to access he alth information online - Detail Indication:Pneumonia Pneumonia : Patient Instruct ions Indication:Pneumonia Name Dates Details Screening for HPV (human pap illomavirus) (Renamed from Encounter for screening for human papillomavirus (HPV)) : How to access health information online Indication:Screening for HPV (human papillomavirus) (Renamed from Encounter for screening for human papillomavirus (HPV)) Screening for HPV (human pap illomavirus) (Renamed from Encounter for screening for human papillomavirus (HPV)) : How to access health information online - Detail Indication:Screening for HPV (human papillomavirus) (Renamed from Encounter for screening for human papillomavirus (HPV)) Screening for HPV (human pap illomavirus) (Renamed from Encounter for screening for human papillomavirus (HPV)) : Patient Instructions Indication:Screening for HPV (human papillomavirus) (Renamed from Encounter for screening for human papillomavirus (HPV)) BMI 33.0-33.9,adult : How to access health information online Indication:BMI 33.0-33.9,adult BMI 33.0-33.9,adult : How to access health information online - Detail Indication:BMI 33.0-33.9,adult BMI 33.0-33.9,adult : Patien t Instructions Indication:BMI 33.0-33.9,adult Left hip pain : How to acces s health information online Indication:Left hip pain Left hip pain : How to acces s health information online - Detail Indication:Left hip pain Left hip pain : Patient Inst ructions Indication:Left hip pain BMI 36.0-36.9,adult : How to access health information online Indication:BMI 36.0-36.9,adult BMI 36.0-36.9,adult : How to access health information online - Detail Indication:BMI 36.0-36.9,adult BMI 36.0-36.9,adult : Patien t Instructions Indication:BMI 36.0-36.9,adult BMI 34.0-34.9,adult : How to access health information online Indication:BMI 34.0-34.9,adult BMI 34.0-34.9,adult : Patien t Instructions Indication:BMI 34.0-34.9,adult Pneumonia : How to access he alth information online Indication:Pneumonia Pneumonia : How to access he alth information online - Detail Indication:Pneumonia Pneumonia : Patient Instruct ions Indication:Pneumonia Name Dates Details How to access health informa tion online Indication:Left shoulder pain Start:12-Jan-2019 Instruction Type:Patient Education How to access health informa tion online - Detail Indication:Left shoulder pain Start:12-Jan-2019 Instruction Type:Patient Education Patient Instructions Indication:Left shoulder pain Start:12-Jan-2019 Instruction Type:Provider Instructions for Treatment How to access health informa tion online Indication:Screening for HPV (human papillomavirus) (Renamed from Encounter for screening for human papillomavirus (HPV)) Start:22-Oct-2017 Instruction Type:Patient Education How to access health informa tion online - Detail Indication:Screening for HPV (human papillomavirus) (Renamed from Encounter for screening for human papillomavirus (HPV)) Start:22-Oct-2017 Instruction Type:Patient Education Patient Instructions Indication:Screening for HPV (human papillomavirus) (Renamed from Encounter for screening for human papillomavirus (HPV)) Start:22-Oct-2017 Instruction Type:Provider Instructions for Treatment How to access health informa tion online Indication:BMI 33.0-33.9,adult Start:27-Jul-2017 Instruction Type:Patient Education How to access health informa tion online - Detail Indication:BMI 33.0-33.9,adult Start:27-Jul-2017 Instruction Type:Patient Education Patient Instructions Indication:BMI 33.0-33.9,adult Start:27-Jul-2017 Instruction Type:Provider Instructions for Treatment How to access health informa tion online Indication:Left hip pain Start:20-Jul-2017 Instruction Type:Patient Education How to access health informa tion online - Detail Indication:Left hip pain Start:20-Jul-2017 Instruction Type:Patient Education Patient Instructions Indication:Left hip pain Start:20-Jul-2017 Instruction Type:Provider Instructions for Treatment How to access health informa tion online Indication:BMI 36.0-36.9,adult Start:07-May-2017 Instruction Type:Patient Education How to access health informa tion online - Detail Indication:BMI 36.0-36.9,adult Start:07-May-2017 Instruction Type:Patient Education Patient Instructions Indication:BMI 36.0-36.9,adult Start:07-May-2017 Instruction Type:Provider Instructions for Treatment How to access health informa tion online Indication:BMI 34.0-34.9,adult Start:18-Sep-2016 Instruction Type:Patient Education Patient Instructions Indication:BMI 34.0-34.9,adult Start:18-Sep-2016 Instruction Type:Provider Instructions for Treatment How to access health informa tion online Indication:Pneumonia Start:04-Sep-2015 Instruction Type:Patient Education How to access health informa tion online - Detail Indication:Pneumonia Start:04-Sep-2015 Instruction Type:Patient Education Patient Instructions Indication:Pneumonia Start:04-Sep-2015 Instruction Type:Provider Instructions for Treatment Name Dates Details How to access health informa tion online Indication:Pain in right lower leg Start:27-Jun-2019 Instruction Type:Patient Education How to access health informa tion online - Detail Indication:Pain in right lower leg Start:27-Jun-2019 Instruction Type:Patient Education Patient Instructions Indication:Pain in right lower leg Start:27-Jun-2019 Instruction Type:Provider Instructions for Treatment How to access health informa tion online Indication:Physical exam WITHOUT abnormal findings (Renamed from Encounter for routine adult health examination without abnormal findings) Start:20-Jan-2019 Instruction Type:Patient Education How to access health informa tion online - Detail Indication:Physical exam WITHOUT abnormal findings (Renamed from Encounter for routine adult health examination without abnormal findings) Start:20-Jan-2019 Instruction Type:Patient Education Patient Instructions Indication:Physical exam WITHOUT abnormal findings (Renamed from Encounter for routine adult health examination without abnormal findings) Start:20-Jan-2019 Instruction Type:Provider Instructions for Treatment How to access health informa tion online Indication:Left shoulder pain Start:12-Jan-2019 Instruction Type:Patient Education How to access health informa tion online - Detail Indication:Left shoulder pain Start:12-Jan-2019 Instruction Type:Patient Education Patient Instructions Indication:Left shoulder pain Start:12-Jan-2019 Instruction Type:Provider Instructions for Treatment How to access health informa tion online Indication:Screening for HPV (human papillomavirus) (Renamed from Encounter for screening for human papillomavirus (HPV)) Start:22-Oct-2017 Instruction Type:Patient Education How to access health informa tion online - Detail Indication:Screening for HPV (human papillomavirus) (Renamed from Encounter for screening for human papillomavirus (HPV)) Start:22-Oct-2017 Instruction Type:Patient Education Patient Instructions Indication:Screening for HPV (human papillomavirus) (Renamed from Encounter for screening for human papillomavirus (HPV)) Start:22-Oct-2017 Instruction Type:Provider Instructions for Treatment How to access health informa tion online Indication:BMI 33.0-33.9,adult Start:27-Jul-2017 Instruction Type:Patient Education How to access health informa tion online - Detail Indication:BMI 33.0-33.9,adult Start:27-Jul-2017 Instruction Type:Patient Education Patient Instructions Indication:BMI 33.0-33.9,adult Start:27-Jul-2017 Instruction Type:Provider Instructions for Treatment How to access health informa tion online Indication:Left hip pain Start:20-Jul-2017 Instruction Type:Patient Education How to access health informa tion online - Detail Indication:Left hip pain Start:20-Jul-2017 Instruction Type:Patient Education Patient Instructions Indication:Left hip pain Start:20-Jul-2017 Instruction Type:Provider Instructions for Treatment How to access health informa tion online Indication:BMI 36.0-36.9,adult Start:07-May-2017 Instruction Type:Patient Education How to access health informa tion online - Detail Indication:BMI 36.0-36.9,adult Start:07-May-2017 Instruction Type:Patient Education Patient Instructions Indication:BMI 36.0-36.9,adult Start:07-May-2017 Instruction Type:Provider Instructions for Treatment How to access health informa tion online Indication:BMI 34.0-34.9,adult Start:18-Sep-2016 Instruction Type:Patient Education Patient Instructions Indication:BMI 34.0-34.9,adult Start:18-Sep-2016 Instruction Type:Provider Instructions for Treatment How to access health informa tion online Indication:Pneumonia Start:04-Sep-2015 Instruction Type:Patient Education How to access health informa tion online - Detail Indication:Pneumonia Start:04-Sep-2015 Instruction Type:Patient Education Patient Instructions Indication:Pneumonia Start:04-Sep-2015 Instruction Type:Provider Instructions for Treatment Name Dates Details How to access health informa tion online Indication:Pain in right lower leg Start:27-Jun-2019 Instruction Type:Patient Education How to access health informa tion online - Detail Indication:Pain in right lower leg Start:27-Jun-2019 Instruction Type:Patient Education Patient Instructions Indication:Pain in right lower leg Start:27-Jun-2019 Instruction Type:Provider Instructions for Treatment How to access health informa tion online Indication:Physical exam WITHOUT abnormal findings (Renamed from Encounter for routine adult health examination without abnormal findings) Start:20-Jan-2019 Instruction Type:Patient Education How to access health informa tion online - Detail Indication:Physical exam WITHOUT abnormal findings (Renamed from Encounter for routine adult health examination without abnormal findings) Start:20-Jan-2019 Instruction Type:Patient Education Patient Instructions Indication:Physical exam WITHOUT abnormal findings (Renamed from Encounter for routine adult health examination without abnormal findings) Start:20-Jan-2019 Instruction Type:Provider Instructions for Treatment How to access health informa tion online Indication:Left shoulder pain Start:12-Jan-2019 Instruction Type:Patient Education How to access health informa tion online - Detail Indication:Left shoulder pain Start:12-Jan-2019 Instruction Type:Patient Education Patient Instructions Indication:Left shoulder pain Start:12-Jan-2019 Instruction Type:Provider Instructions for Treatment How to access health informa tion online Indication:Screening for HPV (human papillomavirus) (Renamed from Encounter for screening for human papillomavirus (HPV)) Start:22-Oct-2017 Instruction Type:Patient Education How to access health informa tion online - Detail Indication:Screening for HPV (human papillomavirus) (Renamed from Encounter for screening for human papillomavirus (HPV)) Start:22-Oct-2017 Instruction Type:Patient Education Patient Instructions Indication:Screening for HPV (human papillomavirus) (Renamed from Encounter for screening for human papillomavirus (HPV)) Start:22-Oct-2017 Instruction Type:Provider Instructions for Treatment How to access health informa tion online Indication:BMI 33.0-33.9,adult Start:27-Jul-2017 Instruction Type:Patient Education How to access health informa tion online - Detail Indication:BMI 33.0-33.9,adult Start:27-Jul-2017 Instruction Type:Patient Education Patient Instructions Indication:BMI 33.0-33.9,adult Start:27-Jul-2017 Instruction Type:Provider Instructions for Treatment How to access health informa tion online Indication:Left hip pain Start:20-Jul-2017 Instruction Type:Patient Education How to access health informa tion online - Detail Indication:Left hip pain Start:20-Jul-2017 Instruction Type:Patient Education Patient Instructions Indication:Left hip pain Start:20-Jul-2017 Instruction Type:Provider Instructions for Treatment How to access health informa tion online Indication:BMI 36.0-36.9,adult Start:07-May-2017 Instruction Type:Patient Education How to access health informa tion online - Detail Indication:BMI 36.0-36.9,adult Start:07-May-2017 Instruction Type:Patient Education Patient Instructions Indication:BMI 36.0-36.9,adult Start:07-May-2017 Instruction Type:Provider Instructions for Treatment How to access health informa tion online Indication:BMI 34.0-34.9,adult Start:18-Sep-2016 Instruction Type:Patient Education Patient Instructions Indication:BMI 34.0-34.9,adult Start:18-Sep-2016 Instruction Type:Provider Instructions for Treatment How to access health informa tion online Indication:Pneumonia Start:04-Sep-2015 Instruction Type:Patient Education How to access health informa tion online - Detail Indication:Pneumonia Start:04-Sep-2015 Instruction Type:Patient Education Patient Instructions Indication:Pneumonia Start:04-Sep-2015 Instruction Type:Provider Instructions for Treatment Name Dates Details How to access health informa tion online Indication:Pain in right lower leg Start:27-Jun-2019 Instruction Type:Patient Education How to access health informa tion online - Detail Indication:Pain in right lower leg Start:27-Jun-2019 Instruction Type:Patient Education Patient Instructions Indication:Pain in right lower leg Start:27-Jun-2019 Instruction Type:Provider Instructions for Treatment How to access health informa tion online Indication:Physical exam WITHOUT abnormal findings (Renamed from Encounter for routine adult health examination without abnormal findings) Start:20-Jan-2019 Instruction Type:Patient Education How to access health informa tion online - Detail Indication:Physical exam WITHOUT abnormal findings (Renamed from Encounter for routine adult health examination without abnormal findings) Start:20-Jan-2019 Instruction Type:Patient Education Patient Instructions Indication:Physical exam WITHOUT abnormal findings (Renamed from Encounter for routine adult health examination without abnormal findings) Start:20-Jan-2019 Instruction Type:Provider Instructions for Treatment How to access health informa tion online Indication:Left shoulder pain Start:12-Jan-2019 Instruction Type:Patient Education How to access health informa tion online - Detail Indication:Left shoulder pain Start:12-Jan-2019 Instruction Type:Patient Education Patient Instructions Indication:Left shoulder pain Start:12-Jan-2019 Instruction Type:Provider Instructions for Treatment How to access health informa tion online Indication:Screening for HPV (human papillomavirus) (Renamed from Encounter for screening for human papillomavirus (HPV)) Start:22-Oct-2017 Instruction Type:Patient Education How to access health informa tion online - Detail Indication:Screening for HPV (human papillomavirus) (Renamed from Encounter for screening for human papillomavirus (HPV)) Start:22-Oct-2017 Instruction Type:Patient Education Patient Instructions Indication:Screening for HPV (human papillomavirus) (Renamed from Encounter for screening for human papillomavirus (HPV)) Start:22-Oct-2017 Instruction Type:Provider Instructions for Treatment How to access health informa tion online Indication:BMI 33.0-33.9,adult Start:27-Jul-2017 Instruction Type:Patient Education How to access health informa tion online - Detail Indication:BMI 33.0-33.9,adult Start:27-Jul-2017 Instruction Type:Patient Education Patient Instructions Indication:BMI 33.0-33.9,adult Start:27-Jul-2017 Instruction Type:Provider Instructions for Treatment How to access health informa tion online Indication:Left hip pain Start:20-Jul-2017 Instruction Type:Patient Education How to access health informa tion online - Detail Indication:Left hip pain Start:20-Jul-2017 Instruction Type:Patient Education Patient Instructions Indication:Left hip pain Start:20-Jul-2017 Instruction Type:Provider Instructions for Treatment How to access health informa tion online Indication:BMI 36.0-36.9,adult Start:07-May-2017 Instruction Type:Patient Education How to access health informa tion online - Detail Indication:BMI 36.0-36.9,adult Start:07-May-2017 Instruction Type:Patient Education Patient Instructions Indication:BMI 36.0-36.9,adult Start:07-May-2017 Instruction Type:Provider Instructions for Treatment How to access health informa tion online Indication:BMI 34.0-34.9,adult Start:18-Sep-2016 Instruction Type:Patient Education Patient Instructions Indication:BMI 34.0-34.9,adult Start:18-Sep-2016 Instruction Type:Provider Instructions for Treatment How to access health informa tion online Indication:Pneumonia Start:04-Sep-2015 Instruction Type:Patient Education How to access health informa tion online - Detail Indication:Pneumonia Start:04-Sep-2015 Instruction Type:Patient Education Patient Instructions Indication:Pneumonia Start:04-Sep-2015 Instruction Type:Provider Instructions for Treatment Name Dates Details How to access health informa tion online Indication:Well woman exam (Renamed from Encounter for well woman exam) Start:08-Mar-2020 Instruction Type:Patient Education How to access health informa tion online - Detail Indication:Well woman exam (Renamed from Encounter for well woman exam) Start:08-Mar-2020 Instruction Type:Patient Education Patient Instructions Indication:Well woman exam (Renamed from Encounter for well woman exam) Start:08-Mar-2020 Instruction Type:Provider Instructions for Treatment How to access health informa tion online Indication:Pain in right lower leg Start:27-Jun-2019 Instruction Type:Patient Education How to access health informa tion online - Detail Indication:Pain in right lower leg Start:27-Jun-2019 Instruction Type:Patient Education Patient Instructions Indication:Pain in right lower leg Start:27-Jun-2019 Instruction Type:Provider Instructions for Treatment How to access health informa tion online Indication:Physical exam WITHOUT abnormal findings (Renamed from Encounter for routine adult health examination without abnormal findings) Start:20-Jan-2019 Instruction Type:Patient Education How to access health informa tion online - Detail Indication:Physical exam WITHOUT abnormal findings (Renamed from Encounter for routine adult health examination without abnormal findings) Start:20-Jan-2019 Instruction Type:Patient Education Patient Instructions Indication:Physical exam WITHOUT abnormal findings (Renamed from Encounter for routine adult health examination without abnormal findings) Start:20-Jan-2019 Instruction Type:Provider Instructions for Treatment How to access health informa tion online Indication:Left shoulder pain Start:12-Jan-2019 Instruction Type:Patient Education How to access health informa tion online - Detail Indication:Left shoulder pain Start:12-Jan-2019 Instruction Type:Patient Education Patient Instructions Indication:Left shoulder pain Start:12-Jan-2019 Instruction Type:Provider Instructions for Treatment How to access health informa tion online Indication:Screening for HPV (human papillomavirus) (Renamed from Encounter for screening for human papillomavirus (HPV)) Start:22-Oct-2017 Instruction Type:Patient Education How to access health informa tion online - Detail Indication:Screening for HPV (human papillomavirus) (Renamed from Encounter for screening for human papillomavirus (HPV)) Start:22-Oct-2017 Instruction Type:Patient Education Patient Instructions Indication:Screening for HPV (human papillomavirus) (Renamed from Encounter for screening for human papillomavirus (HPV)) Start:22-Oct-2017 Instruction Type:Provider Instructions for Treatment How to access health informa tion online Indication:BMI 33.0-33.9,adult Start:27-Jul-2017 Instruction Type:Patient Education How to access health informa tion online - Detail Indication:BMI 33.0-33.9,adult Start:27-Jul-2017 Instruction Type:Patient Education Patient Instructions Indication:BMI 33.0-33.9,adult Start:27-Jul-2017 Instruction Type:Provider Instructions for Treatment How to access health informa tion online Indication:Left hip pain Start:20-Jul-2017 Instruction Type:Patient Education How to access health informa tion online - Detail Indication:Left hip pain Start:20-Jul-2017 Instruction Type:Patient Education Patient Instructions Indication:Left hip pain Start:20-Jul-2017 Instruction Type:Provider Instructions for Treatment How to access health informa tion online Indication:BMI 36.0-36.9,adult Start:07-May-2017 Instruction Type:Patient Education How to access health informa tion online - Detail Indication:BMI 36.0-36.9,adult Start:07-May-2017 Instruction Type:Patient Education Patient Instructions Indication:BMI 36.0-36.9,adult Start:07-May-2017 Instruction Type:Provider Instructions for Treatment How to access health informa tion online Indication:BMI 34.0-34.9,adult Start:18-Sep-2016 Instruction Type:Patient Education Patient Instructions Indication:BMI 34.0-34.9,adult Start:18-Sep-2016 Instruction Type:Provider Instructions for Treatment How to access health informa tion online Indication:Pneumonia Start:04-Sep-2015 Instruction Type:Patient Education How to access health informa tion online - Detail Indication:Pneumonia Start:04-Sep-2015 Instruction Type:Patient Education Patient Instructions Indication:Pneumonia Start:04-Sep-2015 Instruction Type:Provider Instructions for Treatment Name Dates Details How to access health informa tion online Indication:Well woman exam (Renamed from Encounter for well woman exam) Start:08-Mar-2020 Instruction Type:Patient Education How to access health informa tion online - Detail Indication:Well woman exam (Renamed from Encounter for well woman exam) Start:08-Mar-2020 Instruction Type:Patient Education Patient Instructions Indication:Well woman exam (Renamed from Encounter for well woman exam) Start:08-Mar-2020 Instruction Type:Provider Instructions for Treatment How to access health informa tion online Indication:Pain in right lower leg Start:27-Jun-2019 Instruction Type:Patient Education How to access health informa tion online - Detail Indication:Pain in right lower leg Start:27-Jun-2019 Instruction Type:Patient Education Patient Instructions Indication:Pain in right lower leg Start:27-Jun-2019 Instruction Type:Provider Instructions for Treatment How to access health informa tion online Indication:Physical exam WITHOUT abnormal findings (Renamed from Encounter for routine adult health examination without abnormal findings) Start:20-Jan-2019 Instruction Type:Patient Education How to access health informa tion online - Detail Indication:Physical exam WITHOUT abnormal findings (Renamed from Encounter for routine adult health examination without abnormal findings) Start:20-Jan-2019 Instruction Type:Patient Education Patient Instructions Indication:Physical exam WITHOUT abnormal findings (Renamed from Encounter for routine adult health examination without abnormal findings) Start:20-Jan-2019 Instruction Type:Provider Instructions for Treatment How to access health informa tion online Indication:Left shoulder pain Start:12-Jan-2019 Instruction Type:Patient Education How to access health informa tion online - Detail Indication:Left shoulder pain Start:12-Jan-2019 Instruction Type:Patient Education Patient Instructions Indication:Left shoulder pain Start:12-Jan-2019 Instruction Type:Provider Instructions for Treatment How to access health informa tion online Indication:Screening for HPV (human papillomavirus) (Renamed from Encounter for screening for human papillomavirus (HPV)) Start:22-Oct-2017 Instruction Type:Patient Education How to access health informa tion online - Detail Indication:Screening for HPV (human papillomavirus) (Renamed from Encounter for screening for human papillomavirus (HPV)) Start:22-Oct-2017 Instruction Type:Patient Education Patient Instructions Indication:Screening for HPV (human papillomavirus) (Renamed from Encounter for screening for human papillomavirus (HPV)) Start:22-Oct-2017 Instruction Type:Provider Instructions for Treatment How to access health informa tion online Indication:BMI 33.0-33.9,adult Start:27-Jul-2017 Instruction Type:Patient Education How to access health informa tion online - Detail Indication:BMI 33.0-33.9,adult Start:27-Jul-2017 Instruction Type:Patient Education Patient Instructions Indication:BMI 33.0-33.9,adult Start:27-Jul-2017 Instruction Type:Provider Instructions for Treatment How to access health informa tion online Indication:Left hip pain Start:20-Jul-2017 Instruction Type:Patient Education How to access health informa tion online - Detail Indication:Left hip pain Start:20-Jul-2017 Instruction Type:Patient Education Patient Instructions Indication:Left hip pain Start:20-Jul-2017 Instruction Type:Provider Instructions for Treatment How to access health informa tion online Indication:BMI 36.0-36.9,adult Start:07-May-2017 Instruction Type:Patient Education How to access health informa tion online - Detail Indication:BMI 36.0-36.9,adult Start:07-May-2017 Instruction Type:Patient Education Patient Instructions Indication:BMI 36.0-36.9,adult Start:07-May-2017 Instruction Type:Provider Instructions for Treatment How to access health informa tion online Indication:BMI 34.0-34.9,adult Start:18-Sep-2016 Instruction Type:Patient Education Patient Instructions Indication:BMI 34.0-34.9,adult Start:18-Sep-2016 Instruction Type:Provider Instructions for Treatment How to access health informa tion online Indication:Pneumonia Start:04-Sep-2015 Instruction Type:Patient Education How to access health informa tion online - Detail Indication:Pneumonia Start:04-Sep-2015 Instruction Type:Patient Education Patient Instructions Indication:Pneumonia Start:04-Sep-2015 Instruction Type:Provider Instructions for Treatment Name Dates Details How to access health informa tion online Indication:Physical exam WITHOUT abnormal findings (Renamed from Encounter for routine adult health examination without abnormal findings) Start:20-Jan-2019 Instruction Type:Patient Education How to access health informa tion online - Detail Indication:Physical exam WITHOUT abnormal findings (Renamed from Encounter for routine adult health examination without abnormal findings) Start:20-Jan-2019 Instruction Type:Patient Education Patient Instructions Indication:Physical exam WITHOUT abnormal findings (Renamed from Encounter for routine adult health examination without abnormal findings) Start:20-Jan-2019 Instruction Type:Provider Instructions for Treatment How to access health informa tion online Indication:Left shoulder pain Start:12-Jan-2019 Instruction Type:Patient Education How to access health informa tion online - Detail Indication:Left shoulder pain Start:12-Jan-2019 Instruction Type:Patient Education Patient Instructions Indication:Left shoulder pain Start:12-Jan-2019 Instruction Type:Provider Instructions for Treatment How to access health informa tion online Indication:Screening for HPV (human papillomavirus) (Renamed from Encounter for screening for human papillomavirus (HPV)) Start:22-Oct-2017 Instruction Type:Patient Education How to access health informa tion online - Detail Indication:Screening for HPV (human papillomavirus) (Renamed from Encounter for screening for human papillomavirus (HPV)) Start:22-Oct-2017 Instruction Type:Patient Education Patient Instructions Indication:Screening for HPV (human papillomavirus) (Renamed from Encounter for screening for human papillomavirus (HPV)) Start:22-Oct-2017 Instruction Type:Provider Instructions for Treatment How to access health informa tion online Indication:BMI 33.0-33.9,adult Start:27-Jul-2017 Instruction Type:Patient Education How to access health informa tion online - Detail Indication:BMI 33.0-33.9,adult Start:27-Jul-2017 Instruction Type:Patient Education Patient Instructions Indication:BMI 33.0-33.9,adult Start:27-Jul-2017 Instruction Type:Provider Instructions for Treatment How to access health informa tion online Indication:Left hip pain Start:20-Jul-2017 Instruction Type:Patient Education How to access health informa tion online - Detail Indication:Left hip pain Start:20-Jul-2017 Instruction Type:Patient Education Patient Instructions Indication:Left hip pain Start:20-Jul-2017 Instruction Type:Provider Instructions for Treatment How to access health informa tion online Indication:BMI 36.0-36.9,adult Start:07-May-2017 Instruction Type:Patient Education How to access health informa tion online - Detail Indication:BMI 36.0-36.9,adult Start:07-May-2017 Instruction Type:Patient Education Patient Instructions Indication:BMI 36.0-36.9,adult Start:07-May-2017 Instruction Type:Provider Instructions for Treatment How to access health informa tion online Indication:BMI 34.0-34.9,adult Start:18-Sep-2016 Instruction Type:Patient Education Patient Instructions Indication:BMI 34.0-34.9,adult Start:18-Sep-2016 Instruction Type:Provider Instructions for Treatment How to access health informa tion online Indication:Pneumonia Start:04-Sep-2015 Instruction Type:Patient Education How to access health informa tion online - Detail Indication:Pneumonia Start:04-Sep-2015 Instruction Type:Patient Education Patient Instructions Indication:Pneumonia Start:04-Sep-2015 Instruction Type:Provider Instructions for Treatment Name Dates Details How to access health informa tion online Indication:Well woman exam (Renamed from Encounter for well woman exam) Start:08-Mar-2020 Instruction Type:Patient Education How to access health informa tion online - Detail Indication:Well woman exam (Renamed from Encounter for well woman exam) Start:08-Mar-2020 Instruction Type:Patient Education Patient Instructions Indication:Well woman exam (Renamed from Encounter for well woman exam) Start:08-Mar-2020 Instruction Type:Provider Instructions for Treatment How to access health informa tion online Indication:Pain in right lower leg Start:27-Jun-2019 Instruction Type:Patient Education How to access health informa tion online - Detail Indication:Pain in right lower leg Start:27-Jun-2019 Instruction Type:Patient Education Patient Instructions Indication:Pain in right lower leg Start:27-Jun-2019 Instruction Type:Provider Instructions for Treatment How to access health informa tion online Indication:Physical exam WITHOUT abnormal findings (Renamed from Encounter for routine adult health examination without abnormal findings) Start:20-Jan-2019 Instruction Type:Patient Education How to access health informa tion online - Detail Indication:Physical exam WITHOUT abnormal findings (Renamed from Encounter for routine adult health examination without abnormal findings) Start:20-Jan-2019 Instruction Type:Patient Education Patient Instructions Indication:Physical exam WITHOUT abnormal findings (Renamed from Encounter for routine adult health examination without abnormal findings) Start:20-Jan-2019 Instruction Type:Provider Instructions for Treatment How to access health informa tion online Indication:Left shoulder pain Start:12-Jan-2019 Instruction Type:Patient Education How to access health informa tion online - Detail Indication:Left shoulder pain Start:12-Jan-2019 Instruction Type:Patient Education Patient Instructions Indication:Left shoulder pain Start:12-Jan-2019 Instruction Type:Provider Instructions for Treatment How to access health informa tion online Indication:Screening for HPV (human papillomavirus) (Renamed from Encounter for screening for human papillomavirus (HPV)) Start:22-Oct-2017 Instruction Type:Patient Education How to access health informa tion online - Detail Indication:Screening for HPV (human papillomavirus) (Renamed from Encounter for screening for human papillomavirus (HPV)) Start:22-Oct-2017 Instruction Type:Patient Education Patient Instructions Indication:Screening for HPV (human papillomavirus) (Renamed from Encounter for screening for human papillomavirus (HPV)) Start:22-Oct-2017 Instruction Type:Provider Instructions for Treatment How to access health informa tion online Indication:BMI 33.0-33.9,adult Start:27-Jul-2017 Instruction Type:Patient Education How to access health informa tion online - Detail Indication:BMI 33.0-33.9,adult Start:27-Jul-2017 Instruction Type:Patient Education Patient Instructions Indication:BMI 33.0-33.9,adult Start:27-Jul-2017 Instruction Type:Provider Instructions for Treatment How to access health informa tion online Indication:Left hip pain Start:20-Jul-2017 Instruction Type:Patient Education How to access health informa tion online - Detail Indication:Left hip pain Start:20-Jul-2017 Instruction Type:Patient Education Patient Instructions Indication:Left hip pain Start:20-Jul-2017 Instruction Type:Provider Instructions for Treatment How to access health informa tion online Indication:BMI 36.0-36.9,adult Start:07-May-2017 Instruction Type:Patient Education How to access health informa tion online - Detail Indication:BMI 36.0-36.9,adult Start:07-May-2017 Instruction Type:Patient Education Patient Instructions Indication:BMI 36.0-36.9,adult Start:07-May-2017 Instruction Type:Provider Instructions for Treatment How to access health informa tion online Indication:BMI 34.0-34.9,adult Start:18-Sep-2016 Instruction Type:Patient Education Patient Instructions Indication:BMI 34.0-34.9,adult Start:18-Sep-2016 Instruction Type:Provider Instructions for Treatment How to access health informa tion online Indication:Pneumonia Start:04-Sep-2015 Instruction Type:Patient Education How to access health informa tion online - Detail Indication:Pneumonia Start:04-Sep-2015 Instruction Type:Patient Education Patient Instructions Indication:Pneumonia Start:04-Sep-2015 Instruction Type:Provider Instructions for Treatment Name Dates Details How to access health informa tion online Indication:Physical exam WITHOUT abnormal findings (Renamed from Encounter for routine adult health examination without abnormal findings) Start:20-Jan-2019 Instruction Type:Patient Education How to access health informa tion online - Detail Indication:Physical exam WITHOUT abnormal findings (Renamed from Encounter for routine adult health examination without abnormal findings) Start:20-Jan-2019 Instruction Type:Patient Education Patient Instructions Indication:Physical exam WITHOUT abnormal findings (Renamed from Encounter for routine adult health examination without abnormal findings) Start:20-Jan-2019 Instruction Type:Provider Instructions for Treatment How to access health informa tion online Indication:Left shoulder pain Start:12-Jan-2019 Instruction Type:Patient Education How to access health informa tion online - Detail Indication:Left shoulder pain Start:12-Jan-2019 Instruction Type:Patient Education Patient Instructions Indication:Left shoulder pain Start:12-Jan-2019 Instruction Type:Provider Instructions for Treatment How to access health informa tion online Indication:Screening for HPV (human papillomavirus) (Renamed from Encounter for screening for human papillomavirus (HPV)) Start:22-Oct-2017 Instruction Type:Patient Education How to access health informa tion online - Detail Indication:Screening for HPV (human papillomavirus) (Renamed from Encounter for screening for human papillomavirus (HPV)) Start:22-Oct-2017 Instruction Type:Patient Education Patient Instructions Indication:Screening for HPV (human papillomavirus) (Renamed from Encounter for screening for human papillomavirus (HPV)) Start:22-Oct-2017 Instruction Type:Provider Instructions for Treatment How to access health informa tion online Indication:BMI 33.0-33.9,adult Start:27-Jul-2017 Instruction Type:Patient Education How to access health informa tion online - Detail Indication:BMI 33.0-33.9,adult Start:27-Jul-2017 Instruction Type:Patient Education Patient Instructions Indication:BMI 33.0-33.9,adult Start:27-Jul-2017 Instruction Type:Provider Instructions for Treatment How to access health informa tion online Indication:Left hip pain Start:20-Jul-2017 Instruction Type:Patient Education How to access health informa tion online - Detail Indication:Left hip pain Start:20-Jul-2017 Instruction Type:Patient Education Patient Instructions Indication:Left hip pain Start:20-Jul-2017 Instruction Type:Provider Instructions for Treatment How to access health informa tion online Indication:BMI 36.0-36.9,adult Start:07-May-2017 Instruction Type:Patient Education How to access health informa tion online - Detail Indication:BMI 36.0-36.9,adult Start:07-May-2017 Instruction Type:Patient Education Patient Instructions Indication:BMI 36.0-36.9,adult Start:07-May-2017 Instruction Type:Provider Instructions for Treatment How to access health informa tion online Indication:BMI 34.0-34.9,adult Start:18-Sep-2016 Instruction Type:Patient Education Patient Instructions Indication:BMI 34.0-34.9,adult Start:18-Sep-2016 Instruction Type:Provider Instructions for Treatment How to access health informa tion online Indication:Pneumonia Start:04-Sep-2015 Instruction Type:Patient Education How to access health informa tion online - Detail Indication:Pneumonia Start:04-Sep-2015 Instruction Type:Patient Education Patient Instructions Indication:Pneumonia Start:04-Sep-2015 Instruction Type:Provider Instructions for Treatment Name Dates Details How to access health informa tion online Indication:Physical exam WITHOUT abnormal findings (Renamed from Encounter for routine adult health examination without abnormal findings) Start:20-Jan-2019 Instruction Type:Patient Education How to access health informa tion online - Detail Indication:Physical exam WITHOUT abnormal findings (Renamed from Encounter for routine adult health examination without abnormal findings) Start:20-Jan-2019 Instruction Type:Patient Education Patient Instructions Indication:Physical exam WITHOUT abnormal findings (Renamed from Encounter for routine adult health examination without abnormal findings) Start:20-Jan-2019 Instruction Type:Provider Instructions for Treatment How to access health informa tion online Indication:Left shoulder pain Start:12-Jan-2019 Instruction Type:Patient Education How to access health informa tion online - Detail Indication:Left shoulder pain Start:12-Jan-2019 Instruction Type:Patient Education Patient Instructions Indication:Left shoulder pain Start:12-Jan-2019 Instruction Type:Provider Instructions for Treatment How to access health informa tion online Indication:Screening for HPV (human papillomavirus) (Renamed from Encounter for screening for human papillomavirus (HPV)) Start:22-Oct-2017 Instruction Type:Patient Education How to access health informa tion online - Detail Indication:Screening for HPV (human papillomavirus) (Renamed from Encounter for screening for human papillomavirus (HPV)) Start:22-Oct-2017 Instruction Type:Patient Education Patient Instructions Indication:Screening for HPV (human papillomavirus) (Renamed from Encounter for screening for human papillomavirus (HPV)) Start:22-Oct-2017 Instruction Type:Provider Instructions for Treatment How to access health informa tion online Indication:BMI 33.0-33.9,adult Start:27-Jul-2017 Instruction Type:Patient Education How to access health informa tion online - Detail Indication:BMI 33.0-33.9,adult Start:27-Jul-2017 Instruction Type:Patient Education Patient Instructions Indication:BMI 33.0-33.9,adult Start:27-Jul-2017 Instruction Type:Provider Instructions for Treatment How to access health informa tion online Indication:Left hip pain Start:20-Jul-2017 Instruction Type:Patient Education How to access health informa tion online - Detail Indication:Left hip pain Start:20-Jul-2017 Instruction Type:Patient Education Patient Instructions Indication:Left hip pain Start:20-Jul-2017 Instruction Type:Provider Instructions for Treatment How to access health informa tion online Indication:BMI 36.0-36.9,adult Start:07-May-2017 Instruction Type:Patient Education How to access health informa tion online - Detail Indication:BMI 36.0-36.9,adult Start:07-May-2017 Instruction Type:Patient Education Patient Instructions Indication:BMI 36.0-36.9,adult Start:07-May-2017 Instruction Type:Provider Instructions for Treatment How to access health informa tion online Indication:BMI 34.0-34.9,adult Start:18-Sep-2016 Instruction Type:Patient Education Patient Instructions Indication:BMI 34.0-34.9,adult Start:18-Sep-2016 Instruction Type:Provider Instructions for Treatment How to access health informa tion online Indication:Pneumonia Start:04-Sep-2015 Instruction Type:Patient Education How to access health informa tion online - Detail Indication:Pneumonia Start:04-Sep-2015 Instruction Type:Patient Education Patient Instructions Indication:Pneumonia Start:04-Sep-2015 Instruction Type:Provider Instructions for Treatment Name Dates Details Screening for HPV (human pap illomavirus) (Renamed from Encounter for screening for human papillomavirus (HPV)) : How to access health information online Indication:Screening for HPV (human papillomavirus) (Renamed from Encounter for screening for human papillomavirus (HPV)) Screening for HPV (human pap illomavirus) (Renamed from Encounter for screening for human papillomavirus (HPV)) : How to access health information online - Detail Indication:Screening for HPV (human papillomavirus) (Renamed from Encounter for screening for human papillomavirus (HPV)) Screening for HPV (human pap illomavirus) (Renamed from Encounter for screening for human papillomavirus (HPV)) : Patient Instructions Indication:Screening for HPV (human papillomavirus) (Renamed from Encounter for screening for human papillomavirus (HPV)) BMI 33.0-33.9,adult : How to access health information online Indication:BMI 33.0-33.9,adult BMI 33.0-33.9,adult : How to access health information online - Detail Indication:BMI 33.0-33.9,adult BMI 33.0-33.9,adult : Patien t Instructions Indication:BMI 33.0-33.9,adult Left hip pain : How to acces s health information online Indication:Left hip pain Left hip pain : How to acces s health information online - Detail Indication:Left hip pain Left hip pain : Patient Inst ructions Indication:Left hip pain BMI 36.0-36.9,adult : How to access health information online Indication:BMI 36.0-36.9,adult BMI 36.0-36.9,adult : How to access health information online - Detail Indication:BMI 36.0-36.9,adult BMI 36.0-36.9,adult : Patien t Instructions Indication:BMI 36.0-36.9,adult BMI 34.0-34.9,adult : How to access health information online Indication:BMI 34.0-34.9,adult BMI 34.0-34.9,adult : Patien t Instructions Indication:BMI 34.0-34.9,adult Pneumonia : How to access he alth information online Indication:Pneumonia Pneumonia : How to access he alth information online - Detail Indication:Pneumonia Pneumonia : Patient Instruct ions Indication:Pneumonia Summary Purpose Advance Directives No Advanced Directives Records FoundNo Advanced Directives Records FoundNo Advanced Directives Records FoundNo Advanced Directives Records FoundNo Advanced Directives Records Found Chief Complaint and Reason for Visit Chief Complaint SCREENING ABN MAMM RT BREAST Chief Complaint SOFT TISSUE DISORDER S Reason for Referral Specialty Diagnoses / Procedures Referred By Contac t Referred To Contact Radiology Diagnoses Abnormal electrocardiogram (ECG) (EKG) Procedures CT cardiac scoring wo IV contrast Torsten Mitchell MD [address] [place] [address] Referral ID Status Reason Start Date Expiration Date Visits Requested Visits Authorized [id number] Authorized Perform Procedure 11/18/2023 11/17/2024 1 1 Additional Source Comments INFORMATION SOURCE (unrecogn ized section and content) DATE CREATED AUTHOR 03/20/2021 [facility] DATE CREATED AUTHOR AUTHOR'S ORGANIZ ATION 09/07/2021 [facility] DATE CREATED AUTHOR AUTHOR'S ORGANIZ ATION 11/21/2022 [facility] DATE CREATED AUTHOR AUTHOR'S ORGANIZ ATION 12/16/2023 [facility] DATE CREATED AUTHOR AUTHOR'S ORGANIZ ATION 08/07/2024 [facility] Care Teams (unrecognized sec tion and content) Team Status: Active Member Role Status Dates Dr. Torsten Mitchell MD Family Provider Active Dr. Torsten Mitchell MD Primary Care Provider Active Team Status: Inactive Member Role Status Dates Dr. 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 Specialty Start Date End Date Torsten Mitchell MD [address] [place] [address] PCP - MMO ACO PCP 12/14/22 Goals (unrecognized section and content) Goals may be documented in a n alternate sectionGoals may be documented in an alternate section Reason for Visit (unrecogniz ed section and content) Specialty Diagnoses / Procedures Referred By Contac t Referred To Contact Radiology Diagnoses Abnormal electrocardiogram (ECG) (EKG) Procedures CT cardiac scoring wo IV contrast Torsten Mitchell MD [address] [place] [address] Referral ID Status Reason Start Date Expiration Date Visits Requested Visits Authorized [id number] Authorized Perform Procedure 11/18/2023 11/17/2024 1 1 FOR RECORDS PERTAINING TO PATIENTS WHO ARE OR HAVE BEEN ENROLLED IN A CHEMICAL DEPENDENCY/SUBSTANCEABUSE PROGRAM, SOME INFORMATION MAY BE OMITTED. This clinical summary was aggregated from multiple sources. Caution should be exercised in using it in the provision of clinical care. This summary normalizes information from multiple sources, and as a consequence, information in this document may materially change the coding, format and clinical context of patient data. In addition, data may be omitted in some cases. CLINICAL DECISIONS SHOULD BE BASED ON THE PRIMARY CLINICAL RECORDS. [facility]. provides no warranty or guarantee of the accuracy or completeness of information in this document.
== END | disposition home or self-care (01) ==
LOC: CT 08:32
PROVIDERS: PCP Internal Medicine; Referring Provider Internal Medicine; Visit Provider Internal Medicine
DX: I71.21 Aneurysm of the ascending aorta, without rupture (principal)
CPT/HCPCS: 71275; Q9967